=== PATIENT | male | born 1950 | race Caucasian/White ===

== ENCOUNTER 2024-12-09 09:16 | Observation (INO) | payer MEDICARE ==
--- NOTE | 2024-12-09 09:20 | ERPHSYRPT ---
- History of Present Illness Time Seen by Provider: 12/09/24 09:20 Source: patient, EMS Exam Limitations: clinical condition Physician History: This is a 74-year-old white male patient of Dr. Hannah who was brought to the emergency room by the deck officer service secondary to coughing, shortness of breath, confusion and complaints of generalized body aches and pains that began on 12/08/2024 at 1500. Patient was brought to the emergency department via paramedics who placed him on a nonrebreather. The paramedics state that the patient was hypoxic with oxygen saturation levels in the mid 80s. He has never been evaluated in our emergency department. Patient has a history of COPD, hypertension and hyperlipidemia. His spouse is in our hospital facility with shortness of breath cough and infection of influenza A. Timing/Duration: yesterday Activities at Onset: none Severity of Dyspnea-Max: moderate Severity of Dyspnea-Current: moderate Possible Cause: unknown cause Modifying Factors: Improves With: coughing, oxygen Associated Symptoms: cough Allergies/Adverse Reactions: No Known Drug Allergies Allergy (Verified 12/09/24 09:35) Home Medications: Albuterol Sulfate [Albuterol Sulfate Hfa] 8.5 gm IH Q6HPRN PRN 12/09/24 [Histo ry] Amitriptyline HCl 25 mg [Amitriptyline 25 mg Tablet] 25 mg PO 12/09/24 [History] Atorvastatin Calcium 12/09/24 [History] Fluticasone Propionate [Flonase NASAL] 12/09/24 [History] Potassium Chloride 10 meq PO DAILY 12/09/24 [History] Sotalol HCl 80 mg [Betapace 80 MG] 80 mg PO BID 12/09/24 [History] Theophylline Anhydrous [Salvador-24] 300 mg PO 12/09/24 [History] Tiotropium Br/Olodaterol HCl [Stiolto Respimat Inhaler (60)] 12/09/24 [History] lisinopriL [Zestril] 2.5 mg PO 12/09/24 [History] Travel Risk - International Travel Have you traveled outside of the country in past 3 weeks: No - Emerging Infectious Disease Are you exhibiting symptoms associated with any current EIDs: No Symptoms: Cough: New Onset, Headaches/Body Aches/, Shortness of Breath - Review of Systems Constitutional: Weakness Eyes: No Symptoms Ears, Nose, & Throat: No Symptoms Respiratory: Cough, Dyspnea, Wheezing Cardiac: No Symptoms Abdominal/Gastrointestinal: No Symptoms Genitourinary Symptoms: No Symptoms Musculoskeletal: Arthralgias, Myalgias Skin: No Symptoms Neurological: No Symptoms Psychological: No Symptoms Endocrine: No Symptoms Hematologic/Lymphatic: No Symptoms Immunological/Allergic: No Symptoms All Other Systems: Reviewed and Negative - Past Medical History Pertinent Past Medical History: Yes - Nursing Vital Signs Nursing Vital Signs: Initial Vital Signs Temperature 99.1 F 12/09/24 09:21 Pulse Rate 120 H 12/09/24 09:21 Respiratory Rate 27 H 12/09/24 09:21 Blood Pressure 126/75 12/09/24 09:21 O2 Sat by Pulse Oximetry 95 12/09/24 09:21 Pain Scale Pain Intensity 0 - Physical Exam General Appearance: mild distress, alert, anxiety Eye Exam: PERRL/EOMI, eyes nml inspection Ears, Nose, Throat Exam: normal ENT inspection, normal pharynx Neck Exam: normal inspection, non-tender, supple, full range of motion Respiratory Exam: respiratory distress, crackles/rales, wheezing, No chest tenderness Cardiovascular/Chest Exam: tachycardia Abdominal/Gastrointestinal Exam: soft, normal bowel sounds, No tenderness Rectal Exam: not done Extremity Exam: non-tender Neurologic Exam: jacker II-XII nml as tested, confusion Skin Exam: normal color, warm, dry Lymphatic Exam: No adenopathy SpO2 Interpretation: normal O2 Delivery: Non-rebreather - Course Nursing assessment & vital signs reviewed: Yes EKG Interpreted by Me: RATE (120), Sinus Tach, Left Bardolph Deviation, NORMAL INTERVALS, NORMAL QRS, Other (PVCs, no acute ischemia. QTc 446) Ordered Tests: Active Orders 24 hr Category Date Time Status Cook Vacuum Kettle STAT Care 12/09/24 09:24 Active EKG-ER Only STAT Care 12/09/24 09:23 Active IV Insertion STAT Care 12/09/24 09:23 Active Oxygen-ED Only Nasal Cannula 4 lpm Care 12/09/24 09:23 Active Pulse Oximetry (ED) STAT Care 12/09/24 09:23 Active CHEST 1 VIEW (PORTABLE) Stat Exams 12/09/24 09:24 Completed HEAD WITHOUT CONTRAST [CT] Stat Exams 12/09/24 10:08 Completed ABG [ARTERIAL BLOOD GASES] Stat Lab 12/09/24 09:30 Completed BLOOD CULTURE Stat Lab 12/09/24 09:46 Received CBC W DIFF Stat Lab 12/09/24 09:46 Completed CMP Stat Lab 12/09/24 09:46 Completed Lactic Acid Stat Lab 12/09/24 09:30 Completed MAGNESIUM Stat Lab 12/09/24 09:46 Completed NT PRO BNPII Stat Lab 12/09/24 09:46 Completed TROPONIN Q4H Lab 12/09/24 09:46 Completed TROPONIN Q4H Lab 12/09/24 12:01 Completed TROPONIN Q4H Lab 12/09/24 17:30 Ordered Respiratory Therapy Assessment DAILY RT 12/10/24 07:00 Active Medication Summary Generic Name Dose Route Start Last Admin Trade Name Freq PRN Reason Stop Dose Admin Sodium Chloride 1,000 mls @ 100 mls/hr 12/09/24 11:45 12/09/24 11:55 Sodium Chloride 0.9% 1000 Ml IV 01/08/25 11:44 100 mls/hr .Q10H EDY Administration Discontinued Medications Generic Name Dose Route Start Last Admin Trade Name Freq PRN Reason Stop Dose Admin Albuterol/Ipratropium Confirm 12/09/24 09:31 Ipratropium/Albuterol Sulfate 3 Ml Ampul.Neb Administered 12/09/24 09:32 Dose 3 ml IH .STK-MED ONE Albuterol/Ipratropium 3 ml 12/09/24 09:35 12/09/24 09:35 Ipratropium/Albuterol Sulfate 3 Ml Ampul.Neb IH 12/09/24 09:36 3 ml STAT ONE Administration Methylprednisolone Sodium 0 mg 12/09/24 10:19 12/09/24 10:27 Succinate 125 mg/ Sterile IV 12/09/24 10:20 125 mg Water 2 ml STAT ONE Administration Furosemide 40 mg 12/09/24 10:19 12/09/24 10:27 Furosemide 40 Mg/4 Ml Vial IV 12/09/24 10:20 40 mg STAT ONE Administration Furosemide Confirm 12/09/24 10:25 Furosemide 40 Mg/4 Ml Vial Administered 12/09/24 10:26 Dose 40 mg .ROUTE .STK-MED ONE Ceftriaxone Sodium 1 gm in 100 mls @ 200 mls/hr 12/09/24 10:18 12/09/24 11:04 Rocephin 1 Gm / 100 Ml Nacl IV 12/09/24 10:47 Infused STAT ONE Infusion Ceftriaxone Sodium Confirm 12/09/24 10:25 Rocephin 1 Gm / 100 Ml Nacl Administered 12/09/24 10:26 Dose 1 gm in 100 mls @ ud IV .STK-MED ONE Lorazepam 0.5 mg 12/09/24 11:49 12/09/24 11:55 Lorazepam 2 Mg/1 Ml 2 Mg Vial IV 12/09/24 11:50 0.5 mg STAT ONE Administration Lorazepam Confirm 12/09/24 11:52 Lorazepam 2 Mg/1 Ml 2 Mg Vial Administered 12/09/24 11:53 Dose 2 mg .ROUTE .STK-MED ONE Methylprednisolone Sodium Succinate Confirm 12/09/24 10:25 Methylprednis Sod Succ 125 Mg/2 Ml Vial Administered 12/09/24 10:26 Dose 125 mg .ROUTE .STK-MED ONE Sterile Water Confirm 12/09/24 10:25 Water For Injection,Sterile 10 Ml Vial Administered 12/09/24 10:26 Dose 10 ml IJ .STK-MED ONE Lab/Rad Data: Laboratory Result Diagrams 12/09/24 09:46 12/09/24 09:46 Laboratory Results 12/09/24 12/09/24 12/09/24 Range/Units 12:01 12:01 09:46 WBC (4.23-9.07) x10^3/uL RBC (4.63-6.08) x10^6/uL Hgb (13.7-17.5) g/dL Hct (40.1-51.0) % MCV (79.0-92.2) fL MCH (25.7-32.2) pg MCHC (32.3-36.5) g/dL RDW (11.6-14.4) % Plt Count (163-337) x10^3/uL MPV (9.4-12.4) fL Gran % (34.0-67.9) % Immature Gran % (Auto) (0.001-0.429) % Nucleat RBC Rel Count (0.00-0.2) % Eos # (Auto) (0.04-0.54) x10^3/uL Immature Gran # (Auto) (0.001-0.031) x10^3u/L Absolute Lymphs (auto) (1.32-3.57) x10^3/uL Absolute Monos (auto) (0.30-0.82) x10^3/uL Absolute Nucleated RBC (0.00-0.012) x10^3u/L Lymphocytes % (21.8-53.1) % Monocytes % (5.3-12.2) % Eosinophils % (0.8-7.0) % Basophils % (0.2-1.2) % Absolute Granulocytes (1.78-5.38) x10^3/uL Basophils # (0.01-0.08) x10^3/uL Puncture Site pCO2 (35-45) mmHg pO2 (75-100) mmHg Base Excess (-2.0-2.0) O2 Saturation (94-100) g/dF ABG pH (7.35-7.45) ABG HCO3 (22-28) ABG O2 Sat (Measured) (95-100) % Filiberto Test A-a Gradient a/A Ratio Hemoglobin Carboxyhemoglobin (0.0-6.9) % THgb Methemoglobin (1.4-1.5) % Potassium (3.5-5.1) Temperature C POC O2 Flow Rate % Sodium (135-145) mmol/L Chloride (98-107) mmol/L Carbon Dioxide (22-30) mmol/L Anion Gap (5-15) MEQ/L BUN (9-20) mg/dL Creatinine (0.66-1.25) mg/dL Estimated GFR ML/MIN Glucose (74-106) mg/dL Lactic Acid (0.4-2.0) Calcium (8.4-10.2) mg/dL Magnesium (1.6-2.3) mg/dL Total Bilirubin (0.2-1.3) mg/dL AST (17-59) U/L ALT (0-50) U/L Alkaline Phosphatase (38-126) U/L Ammonia < 9 L (9-30) umol/L Troponin I 0.063 H* (0.000-0.033) ng/mL NT-Pro-B Natriuret Pep (<300) pg/mL Serum Total Protein (6.3-8.2) g/dL Albumin (3.5-5.0) g/dL Influenza Type A Ag POSITIVE A (NEGATIVE) Influenza Type B Ag NEGATIVE (NEGATIVE) RSV (PCR) NEGATIVE (NEGATIVE) SARS-CoV-2 (PCR) NEGATIVE (NEGATIVE) 12/09/24 12/09/24 12/09/24 Range/Units 09:46 09:46 09:46 WBC 10.3 H (4.23-9.07) x10^3/uL RBC 3.72 L (4.63-6.08) x10^6/uL Hgb 10.6 L (13.7-17.5) g/dL Hct 34.1 L (40.1-51.0) % MCV 91.7 (79.0-92.2) fL MCH 28.5 (25.7-32.2) pg MCHC 31.1 L (32.3-36.5) g/dL RDW 13.3 (11.6-14.4) % Plt Count 354 H (163-337) x10^3/uL MPV 9.2 L (9.4-12.4) fL Gran % 78.5 H (34.0-67.9) % Immature Gran % (Auto) 0.9 H (0.001-0.429) % Nucleat RBC Rel Count 0.0 (0.00-0.2) % Eos # (Auto) 0.15 (0.04-0.54) x10^3/uL Immature Gran # (Auto) 0.09 H (0.001-0.031) x10^3u/L Absolute Lymphs (auto) 0.45 L (1.32-3.57) x10^3/uL Absolute Monos (auto) 1.47 H (0.30-0.82) x10^3/uL Absolute Nucleated RBC 0.00 (0.00-0.012) x10^3u/L Lymphocytes % 4.4 L (21.8-53.1) % Monocytes % 14.2 H (5.3-12.2) % Eosinophils % 1.5 (0.8-7.0) % Basophils % 0.5 (0.2-1.2) % Absolute Granulocytes 8.11 H (1.78-5.38) x10^3/uL Basophils # 0.05 (0.01-0.08) x10^3/uL Puncture Site pCO2 (35-45) mmHg pO2 (75-100) mmHg Base Excess (-2.0-2.0) O2 Saturation (94-100) g/dF ABG pH (7.35-7.45) ABG HCO3 (22-28) ABG O2 Sat (Measured) (95-100) % Filiberto Test A-a Gradient a/A Ratio Hemoglobin Carboxyhemoglobin (0.0-6.9) % THgb Methemoglobin (1.4-1.5) % Potassium 4.3 (3.5-5.1) Temperature C POC O2 Flow Rate % Sodium 134 L (135-145) mmol/L Chloride 89 L (98-107) mmol/L Carbon Dioxide 38 H (22-30) mmol/L Anion Gap 12.1 (5-15) MEQ/L BUN 38 H (9-20) mg/dL Creatinine 1.69 H (0.66-1.25) mg/dL Estimated GFR 42.1 ML/MIN Glucose 301 H (74-106) mg/dL Lactic Acid (0.4-2.0) Calcium 9.0 (8.4-10.2) mg/dL Magnesium 1.6 (1.6-2.3) mg/dL Total Bilirubin 0.50 (0.2-1.3) mg/dL AST 30 (17-59) U/L ALT 19 (0-50) U/L Alkaline Phosphatase 109 (38-126) U/L Ammonia (9-30) umol/L Troponin I 0.047 H* (0.000-0.033) ng/mL NT-Pro-B Natriuret Pep 1170 (<300) pg/mL Serum Total Protein 6.4 (6.3-8.2) g/dL Albumin 3.8 (3.5-5.0) g/dL Influenza Type A Ag (NEGATIVE) Influenza Type B Ag (NEGATIVE) RSV (PCR) (NEGATIVE) SARS-CoV-2 (PCR) (NEGATIVE) 12/09/24 Range/Units 09:30 WBC (4.23-9.07) x10^3/uL RBC (4.63-6.08) x10^6/uL Hgb (13.7-17.5) g/dL Hct (40.1-51.0) % MCV (79.0-92.2) fL MCH (25.7-32.2) pg MCHC (32.3-36.5) g/dL RDW (11.6-14.4) % Plt Count (163-337) x10^3/uL MPV (9.4-12.4) fL Gran % (34.0-67.9) % Immature Gran % (Auto) (0.001-0.429) % Nucleat RBC Rel Count (0.00-0.2) % Eos # (Auto) (0.04-0.54) x10^3/uL Immature Gran # (Auto) (0.001-0.031) x10^3u/L Absolute Lymphs (auto) (1.32-3.57) x10^3/uL Absolute Monos (auto) (0.30-0.82) x10^3/uL Absolute Nucleated RBC (0.00-0.012) x10^3u/L Lymphocytes % (21.8-53.1) % Monocytes % (5.3-12.2) % Eosinophils % (0.8-7.0) % Basophils % (0.2-1.2) % Absolute Granulocytes (1.78-5.38) x10^3/uL Basophils # (0.01-0.08) x10^3/uL Puncture Site RIGHT RADIAL pCO2 68 H* (35-45) mmHg pO2 101 H (75-100) mmHg Base Excess 11.7 H (-2.0-2.0) O2 Saturation 96.5 (94-100) g/dF ABG pH 7.37 (7.35-7.45) ABG HCO3 39.3 H* (22-28) ABG O2 Sat (Measured) 98.8 (95-100) % Filiberto Test Yes A-a Gradient 527 a/A Ratio 0.16 Hemoglobin 10.9 Carboxyhemoglobin 1.4 (0.0-6.9) % THgb Methemoglobin 0.9 L (1.4-1.5) % Potassium 4.2 (3.5-5.1) Temperature 37.0 C POC O2 Flow Rate 100 % Sodium (135-145) mmol/L Chloride (98-107) mmol/L Carbon Dioxide (22-30) mmol/L Anion Gap (5-15) MEQ/L BUN (9-20) mg/dL Creatinine (0.66-1.25) mg/dL Estimated GFR ML/MIN Glucose (74-106) mg/dL Lactic Acid 1.1 (0.4-2.0) Calcium (8.4-10.2) mg/dL Magnesium (1.6-2.3) mg/dL Total Bilirubin (0.2-1.3) mg/dL AST (17-59) U/L ALT (0-50) U/L Alkaline Phosphatase (38-126) U/L Ammonia (9-30) umol/L Troponin I (0.000-0.033) ng/mL NT-Pro-B Natriuret Pep (<300) pg/mL Serum Total Protein (6.3-8.2) g/dL Albumin (3.5-5.0) g/dL Influenza Type A Ag (NEGATIVE) Influenza Type B Ag (NEGATIVE) RSV (PCR) (NEGATIVE) SARS-CoV-2 (PCR) (NEGATIVE) - Progress Progress: re-examined Air Movement: fair Progress Note: 12/09/24 10:16 My medical decision making and the assignment of moderate to high complexity is based on review of the patient's past medical history, the presentation of this patient to the emergency department, review of the patient's medication list, reviewed the patient drug allergy list, history present illness and physical findings on examination. The workup in this patient includes placement of intravenous line, CBC, CMP, twelve-lead EKG, BNP, troponin level, chest x-ray, viral swabs. Differential diagnosis includes but is not limited to upper respiratory infect ion, viral illness, pneumonia, COPD exacerbation, CHF exacerbation, myocardial infarction, arrhythmias 12/09/24 10:18 The chest x-ray final report was dictated by the radiologist. It was compared to similar study dated 11/28/2021. The chest x-ray shows findings consistent with COPD. There is new mild bibasilar infiltrates/atelectasis with small bibasilar effusions. The heart is borderline enlarged. 12/09/24 11:49 I interpreted the patient's laboratory data results. Based on the laboratory data results, the patient has an elevated BNP as well as a slightly elevated troponin level. The patient has mild leukocytosis and mild anemia. He appears to have chronic renal failure. And he tested positive for influenza A infection. The CT scan of the head without contrast was interpreted by the radiologist and I reviewed the impression. The impression states nonacute senile brain 12/09/24 13:19 I interpreted the patient's repeat troponin level and it increased from 0.047- 0.061. I also interpreted the patient's repeat twelve-lead EKG which was performed on 12/09/2024 at 1259 and it shows a heart rate of 103 with a rhythm of atrial fibrillation, left anterior fascicular block and PVC. QTc is 446. There is no acute ischemia on this repeat twelve-lead EKG on my interpretation. I reviewed the workup results with the patient's daughter. The patient is confused and he cannot make decisions for himself. Patient is not but has a life partner who does not have medical power of employee benefits attorney. The next of kin is the patient's daughter. The patient's daughter wants to make this patient DNR. The patient has been DNR in the past when he was admitted to hospital for cardiac issues. We will work on finding the paperwork for signature of DNR and then contact our hospitalist for possible admission here in our facility. The patient's daughter is aware that by signing the DNR paper and making this patient DNR, that is no guarantee that he will be admitted here but he definitely will not be admitted here if he has not made DNR here for us. 12/09/24 13:47 I spoke with our telehospitalist, Dr. Zuniga and reviewed the patient history, physical findings, workup and the workup results. She accepts the patient for admission. 12/09/24 13:48 I did ask again regarding this patient's cardiac history. Patient's daughter did state that she forgot that the patient had a valve replacement in 2017. She states that he has never had a heart attack and does not have any coronary art cuate stents. She also states he has a history of atrial fibrillation. Blood Culture(s) Obtained: Yes Antibiotics given: Yes Counseled pt/family regarding: diagnosis Medical Desision Making - Independent Historian Additional History obtained from: Family - Diagnostic Testing Diagnostic test were ordered, analyzed, and reviewed by me: Yes Radiological Interpretation: Reviewed by me, Teleradiologist Report - Risk of complications The pt has a high risk of morbidity or mortality based on: Decision regarding hospitilization or escalation of hosp level of care - Departure Departure Disposition: In-patient Admission Clinical Impression: Shortness of breath, Hypoxia, Atrial fibrillation, CHF (congestive heart failure), Elevated troponin, Pleural effusion, Chronic renal failure, Influenza A H1N1 infection Condition: Fair Critical Care Time: Yes Critical Care Time(excluding separately billable procedures): Critical 30-74 mins (50) Referrals: CHIOMA HANNAH MD [Primary Care Provider] - Follow up/PCP as directed Instructions: Heart Failure
[2024-12-09] MEDS ORDERED: DUONEB 0.5-3 MG/3 ml Neb IH ONE (09:31)
[2024-12-09] MEDS: DUONEB 0.5-3 MG/3 ml Neb IH ONE (09:35)
[2024-12-09 09:37] LABS: A-aADO2 527; ABG HEMOGLOBIN 10.9; ABG POTASSIUM 4.2 (3.5-5.1); ARTERIAL BLD GAS O2 SATURATION 98.8 % (95-100); ARTERIAL BLOOD GAS BASE EXCESS 11.7 (-2.0-2.0); ARTERIAL BLOOD GAS FIO2 100 %; ARTERIAL BLOOD GAS PO2 101 mmHg (75-100); ARTERIAL BLOOD GAS pH 7.37 (7.35-7.45); CARBOXYHEMOGLOBIN 1.4 % THgb (0.0-6.9); HCO3- 39.3 (22-28); HGB O2 SAT 96.5 g/dF (94-100); Lactic Acid 1.1 (0.4-2.0); Methhemoglobin 0.9 % (1.4-1.5); paO2 pAO1 0.16
[2024-12-09 09:38] LABS: ABG SITE RIGHT RADIAL; ALLEN TEST OK? Yes; ARTERIAL BLOOD GAS PCO2 68 mmHg (35-45)
--- NOTE | 2024-12-09 09:54 | XRAY ---
Indication: Cough. Hypoxia. Comparison: November 28, 2021 Portable chest now rotated again demonstrating COPD. New mild bibasilar infiltrates/atelectasis and small effusions. Heart now borderline enlarged again with cardiac valve replacement. Bony thorax intact again with osteopenia, degenerative changes, and dextroscoliosis.
[2024-12-09 10:00] LABS: Absolute Neutrophil Ct (ANC) 8.11 x10^3/uL (1.78-5.38); BASOPHIL % 0.5 % (0.2-1.2); Basophil (Absolute #) 0.05 x10^3/uL (0.01-0.08); Eosinophil % 1.5 % (0.8-7.0); Eosinophil (Absolute #) 0.15 x10^3/uL (0.04-0.54); Hematocrit 34.1 % (40.1-51.0); Hemoglobin 10.6 g/dL (13.7-17.5); IMMATURE GRAN # 0.09 x10^3u/L (0.001-0.031); IMMATURE GRAN % 0.9 % (0.001-0.429); Lymphocyte (Absolute #) 0.45 x10^3/uL (1.32-3.57); Lymphocytes % 4.4 % (21.8-53.1); Mean Cell Volume 91.7 fL (79.0-92.2); Mean Corpuscular Hemoglobin 28.5 pg (25.7-32.2); Mean Corpuscular Hgb Concent. 31.1 g/dL (32.3-36.5); Mean Platelet Volume 9.2 fL (9.4-12.4); Monocyte (Absolute #) 1.47 x10^3/uL (0.30-0.82); Monocytes % 14.2 % (5.3-12.2); Neutrophil % 78.5 % (34.0-67.9); Platelet Count 354 x10^3/uL (163-337); Red Blood Count 3.72 x10^6/uL (4.63-6.08); Red Cell Distribution Width 13.3 % (11.6-14.4); White Blood Count 10.3 x10^3/uL (4.23-9.07)
[2024-12-09 10:22] LABS: ALBUMIN 3.8 g/dL (3.5-5.0); ANION GAP 12.1 MEQ/L (5-15); BILIRUBIN,TOTAL 0.5 mg/dL (0.2-1.3); Creatinine 1 1.69 mg/dL (0.66-1.25); EST GLOMERULAR FILTRATION RATE 42.1 ML/MIN; MAGNESIUM 1.6 mg/dL (1.6-2.3); Potassium 4.3 mmol/L (3.5-5.1); Total Protein 6.4 g/dL (6.3-8.2)
[2024-12-09] MEDS ORDERED: Sterile H2O 10 ml IJ ONE ×2 (10:25→22:02)
[2024-12-09] MEDS ORDERED: solu-MEDROL ONE ×2 (10:25→22:02)
[2024-12-09] MEDS ORDERED: ROCEPHIN 1 GM / 100 ML NaCl 1 GM/100 ML IVPB IV ONE (10:25)
[2024-12-09] MEDS ORDERED: Lasix 40 MG/4 ML ONE (10:25)
[2024-12-09] MEDS: Lasix 40 MG/4 ML IV ONE (10:27)
[2024-12-09] MEDS: solu-MEDROL 125 MG, Sterile H2O 10 ml 2 ML IV ONE (10:27)
[2024-12-09] MEDS: ROCEPHIN 1 GM / 100 ML NaCl 1 GM/100 ML IVPB IV ONE (10:27)
[2024-12-09 10:36] LABS: INFLUENZA B NEGATIVE (NEGATIVE); RESPIRATORY SYNCTIAL VIRUS NEGATIVE (NEGATIVE); SARS-CoV-2 Xpert Express NEGATIVE (NEGATIVE)
[2024-12-09 10:46] LABS: INFLUENZA A POSITIVE (NEGATIVE)
--- NOTE | 2024-12-09 11:16 | XRAY ---
Indication: Confusion. Multiple contiguous axial images obtained through the head without contrast. Comparison: None Age-appropriate global atrophy. No acute intracranial hemorrhage, abnormal extra-axial fluid collection, or mass effect. Fourth ventricle is midline without hydrocephalus. Medeiros-white matter differentiation preserved. Bony calvarium intact. Visualized paranasal sinuses and mastoid air cells are clear. Impression: Nonacute senile brain.
[2024-12-09] MEDS ORDERED: Ativan 2 MG/1 ML VIAL ONE (11:52)
[2024-12-09] MEDS: Sodium Chloride 0.9% 1000 ML 1,000 ML IV SCH (11:55)
[2024-12-09] MEDS: Ativan 2 MG/1 ML VIAL IV ONE ×2 (11:55→15:56)
[2024-12-09] MEDS ORDERED: HUMULIN R SQ PRN (15:15)
[2024-12-09] MEDS ORDERED: Zofran 4 MG/2 ML VIAL IV PRN (15:15)
[2024-12-09] MEDS ORDERED: TYLENOL 325 MG PO PRN (15:43)
[2024-12-09] MEDS: Tamiflu 75MG Capsule PO SCH (15:56)
[2024-12-09] MEDS ORDERED: MAXIPIME 1 GM IV SCH (16:00)
[2024-12-09 16:15] LABS: Slide Review 1 YES
--- NOTE | 2024-12-09 16:45 | PCM.HP ---
<HANSA SETH - Last Filed: 12/09/24 16:33> History of Present Illness - Chief Complaint Chief Complaint: Influenza, hypoxia, elevated troponin Date: 12/09/24 History of Present Illness: is a 74 year old male with a pmhx of congenital heart defect, valve replacement (2017), COPD (6L oxygen at baseline), HTN, and HLD who presented to ED via paramedics for evaluation of AMS, cough, increased shortness of breath, and generalized weakness/body aches. Daughter Lorenza is at bedside providing history for patient. She reports that patient was in his usual state of health until yesterday when she noticed he seemed a bit confused. As the night went on his confusion got worse and he was no longer coherent when speaking with her which prompted her to contact EMS services. Of note patient's significant other has been hospitalized with FluA and pneumonia -just released today. Upon arrival to ED patient was tachycardic, tachypneic and hypoxic. EKG RATE (120), Sinus Tach, Left Barling Deviation, NORMAL INTERVALS, NORMAL QRS, Other (P VCs, no acute ischemia. QTc 446). CXR demonstrating COPD. New mild bibasilar infiltrates/atelectasis and small effusions. Heart now borderline enlarged again with cardiac valve replacement. Head CT with no acute findings. Lab findings with leukocytosis, normocytic anemia, BRADEN, hyperglycemia, elevated troponins, and mild hyponatremia in the setting of hyperglycemia. Patient given lasix, rocephin, solumedrol, DuoNebs, and IVF in ED. Admit for acute respiratory failure secondary to FluA. - Review of Systems All Other Systems: Unable due to condition Medications & Allergies Home Medications: Home Medication List Albuterol Sulfate [Albuterol Sulfate Hfa] 8.5 gm IH Q6HPRN PRN 12/09/24 [History Confirmed 12/09/24] Amitriptyline HCl 25 mg [Amitriptyline 25 mg Tablet] 25 mg PO HS 12/09/24 [History Confirmed 12/09/24] Amitriptyline HCl 25 mg [Amitriptyline 25 mg Tablet] 25 mg PO HS 12/09/24 [History Confirmed 12/09/24] Atorvastatin Calcium 80 mg PO HS 12/09/24 [History Confirmed 12/09/24] Fluticasone Propionate [Flonase NASAL] 50 mcg INTRANASAL DAILY 12/09/24 [History Confirmed 12/09/24] Furosemide 40 mg [Lasix 40 MG] 40 mg PO DAILY 12/09/24 [History Confirmed 12/09/24] Potassium Chloride 10 meq PO DAILY 12/09/24 [History Confirmed 12/09/24] Sotalol HCl 80 mg [Betapace 80 MG] 80 mg PO BID 12/09/24 [History Confirmed 12/09/24] Theophylline Anhydrous [Salvador-24] 300 mg PO DAILY 12/09/24 [History Confirmed 12/09/24] Tiotropium Br/Olodaterol HCl [Stiolto Respimat Inhaler (60)] 12/09/24 [History] lisinopriL [Zestril] 2.5 mg PO DAILY 12/09/24 [History Confirmed 12/09/24] Allergies/Adverse Reactions: Allergies Allergy/AdvReac Type Severity Reaction Status Date / Time No Known Drug Allergies Allergy Verified 12/09/24 09:35 - Past Medical History Past Medical History: Yes Neurological History: No Pertinent History ENT History: No Pertinent History Cardiac History: Coronary Artery Disease, High Cholesterol, Hypertension Respiratory History: COPD Endocrine Medical History: No Pertinent History Musculoskelatal History: Arthritis GI Medical History: No Pertinent History History: No Pertinent History Pyscho-Social History: No Pertinent History Male Reproductive Disorders: No Pertinent History - Past Surgical History Past Surgical History: Yes Neuro Surgical History: No Pertinent History Cardiac History: Valve Replacement Respiratory Surgery: No Pertinent History GI Surgical History: No Pertinent History Genitourinary Surgical Hx: No Pertinent History Musculskeletal Surgical Hx: No Pertinent History Male Surgical History: No Pertinent History Other Surgical History: open heart surgery at age 7 Significant Family History: heart disease, cancer, diabetes - Social History Smoking Status: Former smoker Exposure to second hand smoke: Yes Alcohol: None Drug Use: none - Social Determinants of Health Will the patient participate in the screening: Yes Do you worry about a steady place to live?: No Do you have any problems with any of the following?: No known problems In the past 12 months,have you had to go without utilities?: No Have you or anyone in your house had to go without enough: No Transportation Issues: No Has anyone in your support network made you feel unsafe?: No Does the patient want assistance with any of the above?: No - Physical Exam Vital Signs: Vital Signs - 24 hr Temp Pulse Resp BP BP Pulse Ox 12/09/24 16:16 97.7 F 101 H 18 186/104 92 L 12/09/24 15:43 97.7 F 101 H 18 186/104 92 L 12/09/24 15:09 97.7 F 101 H 18 186/104 92 L 12/09/24 14:40 93 H 20 110/74 100 12/09/24 14:33 85 19 94 L 12/09/24 14:17 100 H 21 102/62 89 L 12/09/24 14:01 93 H 44 H 93/45 96 12/09/24 13:45 88 35 H 104/63 98 12/09/24 13:40 89 23 97 12/09/24 13:33 108 H 30 H 97 12/09/24 13:15 92 H 28 H 106/75 96 12/09/24 13:01 104 H 29 H 101/63 12/09/24 12:51 97 H 23 118/68 98 12/09/24 12:50 99 H 31 H 97 12/09/24 12:40 95 H 25 H 12/09/24 12:30 107 H 22 12/09/24 12:20 100 H 39 H 12/09/24 12:18 107 H 24 12/09/24 12:08 100 H 27 H 164/106 95 12/09/24 12:03 83 23 97 12/09/24 11:58 90 26 H 111/85 96 12/09/24 11:50 123 H 22 94 L 12/09/24 11:40 99 H 28 H 94 L 12/09/24 11:33 103 H 24 81 L 12/09/24 11:16 105 H 23 111/68 79 L 12/09/24 11:00 96/64 12/09/24 10:45 100/72 95 12/09/24 10:43 100/59 95 12/09/24 10:15 97/75 93 L 12/09/24 10:11 109 H 27 H 117/80 97 12/09/24 10:10 105 H 22 117/90 96 12/09/24 10:03 111 H 21 94 L 12/09/24 09:40 114 H 28 H 95 12/09/24 09:39 98 12/09/24 09:30 109 H 29 H 105/82 94 L 12/09/24 09:21 99.1 F 120 H 26 H 126/75 98 General Appearance: mild distress, lethargy Neurologic Exam: confusion, agitation Respiratory Exam: crackles/rales Cardiovascular Exam: tachycardia Rectal Exam: deferred Back Exam: normal inspection Extremity Exam: normal inspection Skin Exam: normal color Results - Labs Lab/Micro Results: Lab Results-Last 24 Hours 12/09/24 12/09/24 12/09/24 Range/Units 09:30 09:46 09:46 WBC 10.3 H (4.23-9.07) x10^3/uL RBC 3.72 L (4.63-6.08) x10^6/uL Hgb 10.6 L (13.7-17.5) g/dL Hct 34.1 L (40.1-51.0) % MCV 91.7 (79.0-92.2) fL MCH 28.5 (25.7-32.2) pg MCHC 31.1 L (32.3-36.5) g/dL RDW 13.3 (11.6-14.4) % Plt Count 354 H (163-337) x10^3/uL MPV 9.2 L (9.4-12.4) fL Gran % 78.5 H (34.0-67.9) % Immature Gran % (Auto) 0.9 H (0.001-0.429) % Nucleat RBC Rel Count 0.0 (0.00-0.2) % Eos # (Auto) 0.15 (0.04-0.54) x10^3/uL Immature Gran # (Auto) 0.09 H (0.001-0.031) x10^3u/L Absolute Lymphs (auto) 0.45 L (1.32-3.57) x10^3/uL Absolute Monos (auto) 1.47 H (0.30-0.82) x10^3/uL Absolute Nucleated RBC 0.00 (0.00-0.012) x10^3u/L Lymphocytes % 4.4 L (21.8-53.1) % Monocytes % 14.2 H (5.3-12.2) % Eosinophils % 1.5 (0.8-7.0) % Basophils % 0.5 (0.2-1.2) % Absolute Granulocytes 8.11 H (1.78-5.38) x10^3/uL Basophils # 0.05 (0.01-0.08) x10^3/uL Puncture Site RIGHT RADIAL pCO2 68 H* (35-45) mmHg pO2 101 H (75-100) mmHg Base Excess 11.7 H (-2.0-2.0) O2 Saturation 96.5 (94-100) g/dF ABG pH 7.37 (7.35-7.45) ABG HCO3 39.3 H* (22-28) ABG O2 Sat (Measured) 98.8 (95-100) % Filiberto Test Yes A-a Gradient 527 a/A Ratio 0.16 Hemoglobin 10.9 Carboxyhemoglobin 1.4 (0.0-6.9) % THgb Methemoglobin 0.9 L (1.4-1.5) % Potassium 4.2 4.3 (3.5-5.1) Temperature 37.0 C POC O2 Flow Rate 100 % Sodium 134 L (135-145) mmol/L Chloride 89 L (98-107) mmol/L Carbon Dioxide 38 H (22-30) mmol/L Anion Gap 12.1 (5-15) MEQ/L BUN 38 H (9-20) mg/dL Creatinine 1.69 H (0.66-1.25) mg/dL Estimated GFR 42.1 ML/MIN Glucose 301 H (74-106) mg/dL Lactic Acid 1.1 (0.4-2.0) Calcium 9.0 (8.4-10.2) mg/dL Magnesium 1.6 (1.6-2.3) mg/dL Total Bilirubin 0.50 (0.2-1.3) mg/dL AST 30 (17-59) U/L ALT 19 (0-50) U/L Alkaline Phosphatase 109 (38-126) U/L Ammonia (9-30) umol/L Troponin I (0.000-0.033) ng/mL NT-Pro-B Natriuret Pep 1170 (<300) pg/mL Serum Total Protein 6.4 (6.3-8.2) g/dL Albumin 3.8 (3.5-5.0) g/dL Influenza Type A Ag (NEGATIVE) Influenza Type B Ag (NEGATIVE) RSV (PCR) (NEGATIVE) SARS-CoV-2 (PCR) (NEGATIVE) Slides for Path Review YES 12/09/24 12/09/24 12/09/24 Range/Units 09:46 09:46 12:01 WBC (4.23-9.07) x10^3/uL RBC (4.63-6.08) x10^6/uL Hgb (13.7-17.5) g/dL Hct (40.1-51.0) % MCV (79.0-92.2) fL MCH (25.7-32.2) pg MCHC (32.3-36.5) g/dL RDW (11.6-14.4) % Plt Count (163-337) x10^3/uL MPV (9.4-12.4) fL Gran % (34.0-67.9) % Immature Gran % (Auto) (0.001-0.429) % Nucleat RBC Rel Count (0.00-0.2) % Eos # (Auto) (0.04-0.54) x10^3/uL Immature Gran # (Auto) (0.001-0.031) x10^3u/L Absolute Lymphs (auto) (1.32-3.57) x10^3/uL Absolute Monos (auto) (0.30-0.82) x10^3/uL Absolute Nucleated RBC (0.00-0.012) x10^3u/L Lymphocytes % (21.8-53.1) % Monocytes % (5.3-12.2) % Eosinophils % (0.8-7.0) % Basophils % (0.2-1.2) % Absolute Granulocytes (1.78-5.38) x10^3/uL Basophils # (0.01-0.08) x10^3/uL Puncture Site pCO2 (35-45) mmHg pO2 (75-100) mmHg Base Excess (-2.0-2.0) O2 Saturation (94-100) g/dF ABG pH (7.35-7.45) ABG HCO3 (22-28) ABG O2 Sat (Measured) (95-100) % Filiberto Test A-a Gradient a/A Ratio Hemoglobin Carboxyhemoglobin (0.0-6.9) % THgb Methemoglobin (1.4-1.5) % Potassium (3.5-5.1) Temperature C POC O2 Flow Rate % Sodium (135-145) mmol/L Chloride (98-107) mmol/L Carbon Dioxide (22-30) mmol/L Anion Gap (5-15) MEQ/L BUN (9-20) mg/dL Creatinine (0.66-1.25) mg/dL Estimated GFR ML/MIN Glucose (74-106) mg/dL Lactic Acid (0.4-2.0) Calcium (8.4-10.2) mg/dL Magnesium (1.6-2.3) mg/dL Total Bilirubin (0.2-1.3) mg/dL AST (17-59) U/L ALT (0-50) U/L Alkaline Phosphatase (38-126) U/L Ammonia (9-30) umol/L Troponin I 0.047 H* 0.063 H* (0.000-0.033) ng/mL NT-Pro-B Natriuret Pep (<300) pg/mL Serum Total Protein (6.3-8.2) g/dL Albumin (3.5-5.0) g/dL Influenza Type A Ag POSITIVE A (NEGATIVE) Influenza Type B Ag NEGATIVE (NEGATIVE) RSV (PCR) NEGATIVE (NEGATIVE) SARS-CoV-2 (PCR) NEGATIVE (NEGATIVE) Slides for Path Review 12/09/24 Range/Units 12:01 WBC (4.23-9.07) x10^3/uL RBC (4.63-6.08) x10^6/uL Hgb (13.7-17.5) g/dL Hct (40.1-51.0) % MCV (79.0-92.2) fL MCH (25.7-32.2) pg MCHC (32.3-36.5) g/dL RDW (11.6-14.4) % Plt Count (163-337) x10^3/uL MPV (9.4-12.4) fL Gran % (34.0-67.9) % Immature Gran % (Auto) (0.001-0.429) % Nucleat RBC Rel Count (0.00-0.2) % Eos # (Auto) (0.04-0.54) x10^3/uL Immature Gran # (Auto) (0.001-0.031) x10^3u/L Absolute Lymphs (auto) (1.32-3.57) x10^3/uL Absolute Monos (auto) (0.30-0.82) x10^3/uL Absolute Nucleated RBC (0.00-0.012) x10^3u/L Lymphocytes % (21.8-53.1) % Monocytes % (5.3-12.2) % Eosinophils % (0.8-7.0) % Basophils % (0.2-1.2) % Absolute Granulocytes (1.78-5.38) x10^3/uL Basophils # (0.01-0.08) x10^3/uL Puncture Site pCO2 (35-45) mmHg pO2 (75-100) mmHg Base Excess (-2.0-2.0) O2 Saturation (94-100) g/dF ABG pH (7.35-7.45) ABG HCO3 (22-28) ABG O2 Sat (Measured) (95-100) % Filiberto Test A-a Gradient a/A Ratio Hemoglobin Carboxyhemoglobin (0.0-6.9) % THgb Methemoglobin (1.4-1.5) % Potassium (3.5-5.1) Temperature C POC O2 Flow Rate % Sodium (135-145) mmol/L Chloride (98-107) mmol/L Carbon Dioxide (22-30) mmol/L Anion Gap (5-15) MEQ/L BUN (9-20) mg/dL Creatinine (0.66-1.25) mg/dL Estimated GFR ML/MIN Glucose (74-106) mg/dL Lactic Acid (0.4-2.0) Calcium (8.4-10.2) mg/dL Magnesium (1.6-2.3) mg/dL Total Bilirubin (0.2-1.3) mg/dL AST (17-59) U/L ALT (0-50) U/L Alkaline Phosphatase (38-126) U/L Ammonia < 9 L (9-30) umol/L Troponin I (0.000-0.033) ng/mL NT-Pro-B Natriuret Pep (<300) pg/mL Serum Total Protein (6.3-8.2) g/dL Albumin (3.5-5.0) g/dL Influenza Type A Ag (NEGATIVE) Influenza Type B Ag (NEGATIVE) RSV (PCR) (NEGATIVE) SARS-CoV-2 (PCR) (NEGATIVE) Slides for Path Review - Radiology Impressions Radiology Exams & Impressions: Radiology Procedures Category Date Time Status CHEST 1 VIEW (PORTABLE) Stat Exams 12/09/24 09:24 Completed HEAD WITHOUT CONTRAST [CT] Stat Exams 12/09/24 10:08 Completed - Other Procedures and Tests Respiratory Therapy 12/09/24 15:15 EKG REPEAT IN AM Oxygen Oxymask LPM 2 lpm Respiratory Therapy Consult ONCE 12/09/24 16:31 RT Screen per Nursing Assess ONCE 12/10/24 07:00 Respiratory Therapy Assessment DAILY Assessment/Plan (1) Acute respiratory failure with hypoxia Current Visit: Yes Status: Acute Assessment & Plan: -CXR demonstrating COPD. New mild bibasilar infiltrates/atelectasis and small effusions. Heart now borderline enlarged again with cardiac valve replacement -Supplemental oxygen to with goal spo2 > 90% -DuoNebs/INH -RT eval and follow -Tamiflu for FluA - renal dosing -Cefepime for possible concomitant bacterial infection Code(s): J96.01 - ACUTE RESPIRATORY FAILURE WITH HYPOXIA (2) Influenza A H1N1 infection Current Visit: Yes Status: Acute Assessment & Plan: -see ARF Code(s): J10.1 - FLU DUE TO OTH IDENT INFLUENZA VIRUS W OTH RESP MANIFEST (3) COPD (chronic obstructive pulmonary disease) Current Visit: Yes Status: Acute Assessment & Plan: -see ARF (4) HTN (hypertension) Current Visit: Yes Status: Acute Assessment & Plan: -Hypertensive on arrival - monitor BP closely - resume home meds Code(s): I10 - ESSENTIAL (PRIMARY) HYPERTENSION (5) HLD (hyperlipidemia) Current Visit: Yes Status: Acute Code(s): E78.5 - HYPERLIPIDEMIA, UNSPECIFIED (6) Hyponatremia Current Visit: Yes Status: Acute Assessment & Plan: -Mild - sodium reviewed at 134 - in the setting of hyperglycemia should correct with improved blood glucose levels Code(s): E87.1 - HYPO-OSMOLALITY AND HYPONATREMIA (7) Leukocytosis Current Visit: Yes Status: Acute Assessment & Plan: -CXR as stated above -UA to r/o infection -Blood cultures pending -Cefepime/Tamiflu Code(s): D72.829 - ELEVATED WHITE BLOOD CELL COUNT, UNSPECIFIED (8) Atrial fibrillation Current Visit: Yes Status: Acute Assessment & Plan: -Tele -Will reach out to PCP for current med list -EKG RATE (120), Sinus Tach, Left Barling Deviation, NORMAL INTERVALS, NORMAL QRS, Other (PVCs, no acute ischemia. QTc 446). -Repeat EKG in the morning -HR now controlled at 93 Code(s): I48.91 - UNSPECIFIED ATRIAL FIBRILLATION (9) Elevated troponin Current Visit: Yes Status: Acute Assessment & Plan: -Reviewed and downtrending 0.054<0.063>0.047 -Tele -EKG as stated above - repeat in the a.m. -BNP 1170 -Echo Code(s): R79.89 - OTHER SPECIFIED ABNORMAL FINDINGS OF BLOOD CHEMISTRY (10) BRADEN (acute kidney injury) Current Visit: Yes Status: Acute Assessment & Plan: -Monitor renal/lytes daily -avoid nephrotoxic agents -IVF given in ED -resume at 50ml/hr -No baseline creat available - reviewed currently at 1.69 Code(s): N17.9 - ACUTE KIDNEY FAILURE, UNSPECIFIED (11) AMS (altered mental status) Current Visit: Yes Status: Acute Assessment & Plan: -Most likely secondary to infection -CT Head negative for acute findings -Ammonia level reviewed -Add TSH, B12/fol, procal -Swallow eval -nursing prior to diet -minimize narcotics -sedating medications -orientation protocols -Lactic acid reviewed and WNL -Supplemental oxygen with goal spo2 > 90% -ABG if significant hypoxia/lethary/confusion Code(s): R41.82 - ALTERED MENTAL STATUS, UNSPECIFIED (12) Hyperglycemia Current Visit: Yes Status: Acute Assessment & Plan: -No h/o DM -Check A1c -SSI low dose -ADA diet - after swallow eval with nursing -accuchecks achs VTE: SCD - until official med list obtained to find out if patient is anticoagulated PPI:Protonix Dispo: 1-2 days Code(s): R73.9 - HYPERGLYCEMIA, UNSPECIFIED Telemedicine Encounter - Telemedicine Encounter Telemedicine Encounter: "The entirety of this encounter was performed via Telemedicine" This visit was performed using real-time audio and video connection between my location and thepatients locationwith the assistance of a surrogateat the patients location. Written or verbal consent was obtained from the patient/guardian to perform this visit [facility] technology. Any patient questions regarding the telemedicine interaction were answered. <NIKIA GOLDBERG - Last Filed: 12/09/24 21:36> History of Present Illness - Chief Complaint History of Present Illness: is a 74 year old male. - Physical Exam Vital Signs: Vital Signs - 24 hr Temp Pulse Resp BP BP Pulse Ox 12/09/24 19:11 88 18 99 12/09/24 16:16 97.7 F 92 H 18 98 12/09/24 15:45 114/71 12/09/24 15:43 97.7 F 101 H 18 186/104 92 L 12/09/24 15:15 88 26 H 94 L 12/09/24 15:09 97.7 F 101 H 18 186/104 92 L 12/09/24 14:40 93 H 20 110/74 100 12/09/24 14:33 85 19 94 L 12/09/24 14:17 100 H 21 102/62 89 L 12/09/24 14:01 93 H 44 H 93/45 96 12/09/24 13:45 88 35 H 104/63 98 12/09/24 13:40 89 23 97 12/09/24 13:33 108 H 30 H 97 12/09/24 13:15 92 H 28 H 106/75 96 12/09/24 13:01 104 H 29 H 101/63 12/09/24 12:51 97 H 23 118/68 98 12/09/24 12:50 99 H 31 H 97 12/09/24 12:40 95 H 25 H 12/09/24 12:30 107 H 22 12/09/24 12:20 100 H 39 H 12/09/24 12:18 107 H 24 12/09/24 12:08 100 H 27 H 164/106 95 12/09/24 12:03 83 23 97 12/09/24 11:58 90 26 H 111/85 96 12/09/24 11:50 123 H 22 94 L 12/09/24 11:40 99 H 28 H 94 L 12/09/24 11:33 103 H 24 81 L 12/09/24 11:16 105 H 23 111/68 79 L 12/09/24 11:00 96/64 12/09/24 10:45 100/72 95 12/09/24 10:43 100/59 95 12/09/24 10:15 97/75 93 L 12/09/24 10:11 109 H 27 H 117/80 97 12/09/24 10:10 105 H 22 117/90 96 12/09/24 10:03 111 H 21 94 L 12/09/24 09:40 114 H 28 H 95 12/09/24 09:39 98 12/09/24 09:30 109 H 29 H 105/82 94 L 12/09/24 09:21 99.1 F 120 H 26 H 126/75 98 Results - Labs Lab/Micro Results: Lab Results-Last 24 Hours 12/09/24 12/09/24 12/09/24 Range/Units 09:30 09:46 09:46 WBC 10.3 H (4.23-9.07) x10^3/uL RBC 3.72 L (4.63-6.08) x10^6/uL Hgb 10.6 L (13.7-17.5) g/dL Hct 34.1 L (40.1-51.0) % MCV 91.7 (79.0-92.2) fL MCH 28.5 (25.7-32.2) pg MCHC 31.1 L (32.3-36.5) g/dL RDW 13.3 (11.6-14.4) % Plt Count 354 H (163-337) x10^3/uL MPV 9.2 L (9.4-12.4) fL Gran % 78.5 H (34.0-67.9) % Immature Gran % (Auto) 0.9 H (0.001-0.429) % Nucleat RBC Rel Count 0.0 (0.00-0.2) % Eos # (Auto) 0.15 (0.04-0.54) x10^3/uL Immature Gran # (Auto) 0.09 H (0.001-0.031) x10^3u/L Absolute Lymphs (auto) 0.45 L (1.32-3.57) x10^3/uL Absolute Monos (auto) 1.47 H (0.30-0.82) x10^3/uL Absolute Nucleated RBC 0.00 (0.00-0.012) x10^3u/L Lymphocytes % 4.4 L (21.8-53.1) % Monocytes % 14.2 H (5.3-12.2) % Eosinophils % 1.5 (0.8-7.0) % Basophils % 0.5 (0.2-1.2) % Absolute Granulocytes 8.11 H (1.78-5.38) x10^3/uL Basophils # 0.05 (0.01-0.08) x10^3/uL Puncture Site RIGHT RADIAL pCO2 68 H* (35-45) mmHg pO2 101 H (75-100) mmHg pO2/FiO2 Ratio % Base Excess 11.7 H (-2.0-2.0) O2 Saturation 96.5 (94-100) g/dF ABG pH 7.37 (7.35-7.45) ABG HCO3 39.3 H* (22-28) ABG O2 Sat (Measured) 98.8 (95-100) % Filiberto Test Yes VBG pH (7.32-7.42) VBG pCO2 at Pat Temp (42-55) mm/Hg VBG pO2 at Pat Temp (25-40) mm/Hg VBG HCO3 (22-28) meq/L VBG O2 Sat (Imani) (95-100) VBG Base Excess (-2.0-2.0) VBG Hemoglobin VBG Carboxyhemoglobin (0.0-6.9) % T HGB A-a Gradient 527 a/A Ratio 0.16 Hemoglobin 10.9 Carboxyhemoglobin 1.4 (0.0-6.9) % THgb Methemoglobin 0.9 L (1.4-1.5) % Potassium 4.2 4.3 (3.5-5.1) POC Potassium (3.5-5.1) Temperature 37.0 C POC O2 Flow Rate 100 % Sodium 134 L (135-145) mmol/L Chloride 89 L (98-107) mmol/L Carbon Dioxide 38 H (22-30) mmol/L Anion Gap 12.1 (5-15) MEQ/L BUN 38 H (9-20) mg/dL Creatinine 1.69 H (0.66-1.25) mg/dL Estimated GFR 42.1 ML/MIN Glucose 301 H (74-106) mg/dL Hemoglobin A1c (4.5-6.0) % Lactic Acid 1.1 (0.4-2.0) Calcium 9.0 (8.4-10.2) mg/dL Magnesium 1.6 (1.6-2.3) mg/dL Iron (49-181) ug/dL TIBC (261-497) ug/dL Iron Saturation (20-39) % Ferritin (17.9-464) ng/mL Total Bilirubin 0.50 (0.2-1.3) mg/dL AST 30 (17-59) U/L ALT 19 (0-50) U/L Alkaline Phosphatase 109 (38-126) U/L Ammonia (9-30) umol/L Troponin I (0.000-0.033) ng/mL NT-Pro-B Natriuret Pep 1170 (<300) pg/mL Serum Total Protein 6.4 (6.3-8.2) g/dL Albumin 3.8 (3.5-5.0) g/dL Vitamin B12 (239-931) pg/mL Folic Acid (2.76 - >20) ng/mL Procalcitonin (0.030-0.080) ng/mL TSH 3rd Generation (0.470-4.680) mIU/L Influenza Type A Ag (NEGATIVE) Influenza Type B Ag (NEGATIVE) RSV (PCR) (NEGATIVE) SARS-CoV-2 (PCR) (NEGATIVE) Slides for Path Review YES 12/09/24 12/09/24 12/09/24 Range/Units 09:46 09:46 12:01 WBC (4.23-9.07) x10^3/uL RBC (4.63-6.08) x10^6/uL Hgb (13.7-17.5) g/dL Hct (40.1-51.0) % MCV (79.0-92.2) fL MCH (25.7-32.2) pg MCHC (32.3-36.5) g/dL RDW (11.6-14.4) % Plt Count (163-337) x10^3/uL MPV (9.4-12.4) fL Gran % (34.0-67.9) % Immature Gran % (Auto) (0.001-0.429) % Nucleat RBC Rel Count (0.00-0.2) % Eos # (Auto) (0.04-0.54) x10^3/uL Immature Gran # (Auto) (0.001-0.031) x10^3u/L Absolute Lymphs (auto) (1.32-3.57) x10^3/uL Absolute Monos (auto) (0.30-0.82) x10^3/uL Absolute Nucleated RBC (0.00-0.012) x10^3u/L Lymphocytes % (21.8-53.1) % Monocytes % (5.3-12.2) % Eosinophils % (0.8-7.0) % Basophils % (0.2-1.2) % Absolute Granulocytes (1.78-5.38) x10^3/uL Basophils # (0.01-0.08) x10^3/uL Puncture Site pCO2 (35-45) mmHg pO2 (75-100) mmHg pO2/FiO2 Ratio % Base Excess (-2.0-2.0) O2 Saturation (94-100) g/dF ABG pH (7.35-7.45) ABG HCO3 (22-28) ABG O2 Sat (Measured) (95-100) % Filiberto Test VBG pH (7.32-7.42) VBG pCO2 at Pat Temp (42-55) mm/Hg VBG pO2 at Pat Temp (25-40) mm/Hg VBG HCO3 (22-28) meq/L VBG O2 Sat (Imani) (95-100) VBG Base Excess (-2.0-2.0) VBG Hemoglobin VBG Carboxyhemoglobin (0.0-6.9) % T HGB A-a Gradient a/A Ratio Hemoglobin Carboxyhemoglobin (0.0-6.9) % THgb Methemoglobin (1.4-1.5) % Potassium (3.5-5.1) POC Potassium (3.5-5.1) Temperature C POC O2 Flow Rate % Sodium (135-145) mmol/L Chloride (98-107) mmol/L Carbon Dioxide (22-30) mmol/L Anion Gap (5-15) MEQ/L BUN (9-20) mg/dL Creatinine (0.66-1.25) mg/dL Estimated GFR ML/MIN Glucose (74-106) mg/dL Hemoglobin A1c (4.5-6.0) % Lactic Acid (0.4-2.0) Calcium (8.4-10.2) mg/dL Magnesium (1.6-2.3) mg/dL Iron (49-181) ug/dL TIBC (261-497) ug/dL Iron Saturation (20-39) % Ferritin (17.9-464) ng/mL Total Bilirubin (0.2-1.3) mg/dL AST (17-59) U/L ALT (0-50) U/L Alkaline Phosphatase (38-126) U/L Ammonia (9-30) umol/L Troponin I 0.047 H* 0.063 H* (0.000-0.033) ng/mL NT-Pro-B Natriuret Pep (<300) pg/mL Serum Total Protein (6.3-8.2) g/dL Albumin (3.5-5.0) g/dL Vitamin B12 (239-931) pg/mL Folic Acid (2.76 - >20) ng/mL Procalcitonin (0.030-0.080) ng/mL TSH 3rd Generation (0.470-4.680) mIU/L Influenza Type A Ag POSITIVE A (NEGATIVE) Influenza Type B Ag NEGATIVE (NEGATIVE) RSV (PCR) NEGATIVE (NEGATIVE) SARS-CoV-2 (PCR) NEGATIVE (NEGATIVE) Slides for Path Review 12/09/24 12/09/24 12/09/24 Range/Units 12:01 16:20 17:24 WBC (4.23-9.07) x10^3/uL RBC (4.63-6.08) x10^6/uL Hgb (13.7-17.5) g/dL Hct (40.1-51.0) % MCV (79.0-92.2) fL MCH (25.7-32.2) pg MCHC (32.3-36.5) g/dL RDW (11.6-14.4) % Plt Count (163-337) x10^3/uL MPV (9.4-12.4) fL Gran % (34.0-67.9) % Immature Gran % (Auto) (0.001-0.429) % Nucleat RBC Rel Count (0.00-0.2) % Eos # (Auto) (0.04-0.54) x10^3/uL Immature Gran # (Auto) (0.001-0.031) x10^3u/L Absolute Lymphs (auto) (1.32-3.57) x10^3/uL Absolute Monos (auto) (0.30-0.82) x10^3/uL Absolute Nucleated RBC (0.00-0.012) x10^3u/L Lymphocytes % (21.8-53.1) % Monocytes % (5.3-12.2) % Eosinophils % (0.8-7.0) % Basophils % (0.2-1.2) % Absolute Granulocytes (1.78-5.38) x10^3/uL Basophils # (0.01-0.08) x10^3/uL Puncture Site pCO2 (35-45) mmHg pO2 (75-100) mmHg pO2/FiO2 Ratio % Base Excess (-2.0-2.0) O2 Saturation (94-100) g/dF ABG pH (7.35-7.45) ABG HCO3 (22-28) ABG O2 Sat (Measured) (95-100) % Filiberto Test VBG pH (7.32-7.42) VBG pCO2 at Pat Temp (42-55) mm/Hg VBG pO2 at Pat Temp (25-40) mm/Hg VBG HCO3 (22-28) meq/L VBG O2 Sat (Imani) (95-100) VBG Base Excess (-2.0-2.0) VBG Hemoglobin VBG Carboxyhemoglobin (0.0-6.9) % T HGB A-a Gradient a/A Ratio Hemoglobin Carboxyhemoglobin (0.0-6.9) % THgb Methemoglobin (1.4-1.5) % Potassium (3.5-5.1) POC Potassium (3.5-5.1) Temperature C POC O2 Flow Rate % Sodium (135-145) mmol/L Chloride (98-107) mmol/L Carbon Dioxide (22-30) mmol/L Anion Gap (5-15) MEQ/L BUN (9-20) mg/dL Creatinine (0.66-1.25) mg/dL Estimated GFR ML/MIN Glucose (74-106) mg/dL Hemoglobin A1c (4.5-6.0) % Lactic Acid (0.4-2.0) Calcium (8.4-10.2) mg/dL Magnesium (1.6-2.3) mg/dL Iron (49-181) ug/dL TIBC (261-497) ug/dL Iron Saturation (20-39) % Ferritin 19.3 (17.9-464) ng/mL Total Bilirubin (0.2-1.3) mg/dL AST (17-59) U/L ALT (0-50) U/L Alkaline Phosphatase (38-126) U/L Ammonia < 9 L (9-30) umol/L Troponin I Cancelled (0.000-0.033) ng/mL NT-Pro-B Natriuret Pep (<300) pg/mL Serum Total Protein (6.3-8.2) g/dL Albumin (3.5-5.0) g/dL Vitamin B12 853 (239-931) pg/mL Folic Acid > 20.0 (2.76 - >20) ng/mL Procalcitonin (0.030-0.080) ng/mL TSH 3rd Generation (0.470-4.680) mIU/L Influenza Type A Ag (NEGATIVE) Influenza Type B Ag (NEGATIVE) RSV (PCR) (NEGATIVE) SARS-CoV-2 (PCR) (NEGATIVE) Slides for Path Review 12/09/24 12/09/24 12/09/24 Range/Units 17:24 17:39 17:39 WBC (4.23-9.07) x10^3/uL RBC (4.63-6.08) x10^6/uL Hgb (13.7-17.5) g/dL Hct (40.1-51.0) % MCV (79.0-92.2) fL MCH (25.7-32.2) pg MCHC (32.3-36.5) g/dL RDW (11.6-14.4) % Plt Count (163-337) x10^3/uL MPV (9.4-12.4) fL Gran % (34.0-67.9) % Immature Gran % (Auto) (0.001-0.429) % Nucleat RBC Rel Count (0.00-0.2) % Eos # (Auto) (0.04-0.54) x10^3/uL Immature Gran # (Auto) (0.001-0.031) x10^3u/L Absolute Lymphs (auto) (1.32-3.57) x10^3/uL Absolute Monos (auto) (0.30-0.82) x10^3/uL Absolute Nucleated RBC (0.00-0.012) x10^3u/L Lymphocytes % (21.8-53.1) % Monocytes % (5.3-12.2) % Eosinophils % (0.8-7.0) % Basophils % (0.2-1.2) % Absolute Granulocytes (1.78-5.38) x10^3/uL Basophils # (0.01-0.08) x10^3/uL Puncture Site pCO2 (35-45) mmHg pO2 (75-100) mmHg pO2/FiO2 Ratio % Base Excess (-2.0-2.0) O2 Saturation (94-100) g/dF ABG pH (7.35-7.45) ABG HCO3 (22-28) ABG O2 Sat (Measured) (95-100) % Filiberto Test VBG pH (7.32-7.42) VBG pCO2 at Pat Temp (42-55) mm/Hg VBG pO2 at Pat Temp (25-40) mm/Hg VBG HCO3 (22-28) meq/L VBG O2 Sat (Imani) (95-100) VBG Base Excess (-2.0-2.0) VBG Hemoglobin VBG Carboxyhemoglobin (0.0-6.9) % T HGB A-a Gradient a/A Ratio Hemoglobin Carboxyhemoglobin (0.0-6.9) % THgb Methemoglobin (1.4-1.5) % Potassium (3.5-5.1) POC Potassium (3.5-5.1) Temperature C POC O2 Flow Rate % Sodium (135-145) mmol/L Chloride (98-107) mmol/L Carbon Dioxide (22-30) mmol/L Anion Gap (5-15) MEQ/L BUN (9-20) mg/dL Creatinine (0.66-1.25) mg/dL Estimated GFR ML/MIN Glucose (74-106) mg/dL Hemoglobin A1c 11.87 H (4.5-6.0) % Lactic Acid (0.4-2.0) Calcium (8.4-10.2) mg/dL Magnesium (1.6-2.3) mg/dL Iron 37 L (49-181) ug/dL TIBC 381 (261-497) ug/dL Iron Saturation 10 L (20-39) % Ferritin (17.9-464) ng/mL Total Bilirubin (0.2-1.3) mg/dL AST (17-59) U/L ALT (0-50) U/L Alkaline Phosphatase (38-126) U/L Ammonia (9-30) umol/L Troponin I (0.000-0.033) ng/mL NT-Pro-B Natriuret Pep (<300) pg/mL Serum Total Protein (6.3-8.2) g/dL Albumin (3.5-5.0) g/dL Vitamin B12 (239-931) pg/mL Folic Acid (2.76 - >20) ng/mL Procalcitonin (0.030-0.080) ng/mL TSH 3rd Generation 0.067 L (0.470-4.680) mIU/L Influenza Type A Ag (NEGATIVE) Influenza Type B Ag (NEGATIVE) RSV (PCR) (NEGATIVE) SARS-CoV-2 (PCR) (NEGATIVE) Slides for Path Review 12/09/24 12/09/24 Range/Units 17:39 19:30 WBC (4.23-9.07) x10^3/uL RBC (4.63-6.08) x10^6/uL Hgb (13.7-17.5) g/dL Hct (40.1-51.0) % MCV (79.0-92.2) fL MCH (25.7-32.2) pg MCHC (32.3-36.5) g/dL RDW (11.6-14.4) % Plt Count (163-337) x10^3/uL MPV (9.4-12.4) fL Gran % (34.0-67.9) % Immature Gran % (Auto) (0.001-0.429) % Nucleat RBC Rel Count (0.00-0.2) % Eos # (Auto) (0.04-0.54) x10^3/uL Immature Gran # (Auto) (0.001-0.031) x10^3u/L Absolute Lymphs (auto) (1.32-3.57) x10^3/uL Absolute Monos (auto) (0.30-0.82) x10^3/uL Absolute Nucleated RBC (0.00-0.012) x10^3u/L Lymphocytes % (21.8-53.1) % Monocytes % (5.3-12.2) % Eosinophils % (0.8-7.0) % Basophils % (0.2-1.2) % Absolute Granulocytes (1.78-5.38) x10^3/uL Basophils # (0.01-0.08) x10^3/uL Puncture Site pCO2 (35-45) mmHg pO2 (75-100) mmHg pO2/FiO2 Ratio 80.0 % Base Excess (-2.0-2.0) O2 Saturation (94-100) g/dF ABG pH (7.35-7.45) ABG HCO3 (22-28) ABG O2 Sat (Measured) (95-100) % Fiilberto Test VBG pH 7.35 (7.32-7.42) VBG pCO2 at Pat Temp 74 H* (42-55) mm/Hg VBG pO2 at Pat Temp 25 (25-40) mm/Hg VBG HCO3 40.9 H* (22-28) meq/L VBG O2 Sat (Imani) 29.3 L (95-100) VBG Base Excess 12.9 H (-2.0-2.0) VBG Hemoglobin 10.1 VBG Carboxyhemoglobin 0.3 (0.0-6.9) % T HGB A-a Gradient a/A Ratio Hemoglobin Carboxyhemoglobin (0.0-6.9) % THgb Methemoglobin (1.4-1.5) % Potassium (3.5-5.1) POC Potassium 4.5 (3.5-5.1) Temperature C POC O2 Flow Rate % Sodium (135-145) mmol/L Chloride (98-107) mmol/L Carbon Dioxide (22-30) mmol/L Anion Gap (5-15) MEQ/L BUN (9-20) mg/dL Creatinine (0.66-1.25) mg/dL Estimated GFR ML/MIN Glucose (74-106) mg/dL Hemoglobin A1c (4.5-6.0) % Lactic Acid (0.4-2.0) Calcium (8.4-10.2) mg/dL Magnesium (1.6-2.3) mg/dL Iron (49-181) ug/dL TIBC (261-497) ug/dL Iron Saturation (20-39) % Ferritin (17.9-464) ng/mL Total Bilirubin (0.2-1.3) mg/dL AST (17-59) U/L ALT (0-50) U/L Alkaline Phosphatase (38-126) U/L Ammonia (9-30) umol/L Troponin I (0.000-0.033) ng/mL NT-Pro-B Natriuret Pep (<300) pg/mL Serum Total Protein (6.3-8.2) g/dL Albumin (3.5-5.0) g/dL Vitamin B12 (239-931) pg/mL Folic Acid (2.76 - >20) ng/mL Procalcitonin 0.192 H (0.030-0.080) ng/mL TSH 3rd Generation (0.470-4.680) mIU/L Influenza Type A Ag (NEGATIVE) Influenza Type B Ag (NEGATIVE) RSV (PCR) (NEGATIVE) SARS-CoV-2 (PCR) (NEGATIVE) Slides for Path Review - Radiology Impressions Radiology Exams & Impressions: Radiology Procedures Category Date Time Status CHEST 1 VIEW (PORTABLE) Stat Exams 12/09/24 09:24 Completed ECHO W/2D AND DOPPLER [US] Routine Exams 12/09/24 17:09 Ordered HEAD WITHOUT CONTRAST [CT] Stat Exams 12/09/24 10:08 Completed - Other Procedures and Tests Respiratory Therapy 12/09/24 15:15 EKG REPEAT IN AM Oxygen Oxymask LPM 10 lpm 12/10/24 07:00 Respiratory Therapy Assessment DAILY Telemedicine Encounter - Telemedicine Encounter Telemedicine Encounter: "The entirety of this encounter was performed via Telemedicine" This visit was performed using real-time audio and video connection between my location and thepatients locationwith the assistance of a surrogateat the patients location. Written or verbal consent was obtained from the patient/guardian to perform this visit usingRealCrowd technology. Any patient questions regarding the telemedicine interaction were answered. THOMAS Encounter - THOMAS Encounter Attestation THOMAS Encounter Attestation: "IhzacharylysCOOPER Shi andhavediscussed pertinent aspects of their care with Hansa Seth and agree with the history, physical exam (any modifications based on my personal exam will be noted below), assessment, and plan as outlined in original note. Please see immediately below for my summary of findings and additional assessment and plan along with any meaningful corrections/explanations to the Subjective/Objective portions of the THOMAS note will be noted." My portion of the encounter took place via telemedicine. -Patient presenting with encephalopathy and acute on chronic hypoxic respiratory failure due to influenza A. Will treat with oxygen support, possible bipap if needed, Tamiflu, steroids, nebs and antibiotics given h/o COPD and mild WBC elevation. Mild troponin leak likely related to Afib with RVR. Patient was very agitated and had to be given Ativan 0.5 mg IV x 2 (once in the ER, once on the floor). However will avoid further doses unless absolutely needed due to risk for resp depression and withdrawal. Patient is full code for now.
[2024-12-09] MEDS ORDERED: Xopenex 1.25 MG/0.5 ML UD NEBULE IH PRN (17:31)
[2024-12-09 18:45] LABS: Iron 37 ug/dL (49-181); Iron Saturation 10 % (20-39); TIBC 381 ug/dL (261-497)
[2024-12-09 19:45] LABS: VBG BASE EXCESS 12.9 (-2.0-2.0); VBG CARBOXYHEMOGLOBIN 0.3 % T HGB (0.0-6.9); VBG HCO3- 40.9 meq/L (22-28); VBG HEMOGLOBIN 10.1; VBG O2 SATURATION 29.3 (95-100); VBG POTASSIUM 4.5 (3.5-5.1); VBG pH 7.35 (7.32-7.42)
[2024-12-09 19:48] LABS: Ferritin 19.3 ng/mL (17.9-464); Folate (Folic Acid) > 20.0 ng/mL (2.76 - >20); Vitamin B12 853 pg/mL (239-931)
[2024-12-09] MEDS: solu-MEDROL 40 MG, Sterile H2O 10 ml 1 ML IV SCH (22:03)
[2024-12-09] MEDS: Maxipime 2 GM** 2 G in Dextrose 5%/Water IV Soln. 100ML PLUS BAG 100 ML IV SCH (22:03)
[2024-12-10] MEDS: HUMALOG SQ PRN ×2 (00:13→16:35)
[2024-12-10] MEDS ORDERED: DUONEB 0.5-3 MG/3 ml Neb IH ONE (01:38)
[2024-12-10 01:53] LABS: Appearance Clear (Clear); Bacteria None Seen /HPF (None Seen); Bilirubin Negative (Negative); Blood Negative (Negative); Epithelial Cells Rare /HPF (None Seen); Glucose, Urine >=1000 mg/dL (Negative); Hyaline Casts NONE SEEN /LPF (0-2); Ketones Negative (Negative); Leukocyte Esterase Negative (Negative); Nitrite Negative (Negative); Ph 5.5 (4.6-8.0); Protein,Urine Dip 30 (Negative); RBC 0-2 /HPF (0-5); Specific Gravity 1.025 (1.005-1.030); Urobilinogen 0.2 mg/dL (0.2); WBC 0-2 /HPF (0-5)
[2024-12-10] MEDS: NORCO 5/325 MG PO PRN (01:54)
[2024-12-10] MEDS: DUONEB 0.5-3 MG/3 ml Neb IH ONE (01:57)
[2024-12-10] MEDS: Sodium Chloride 0.9% 1000 ML 1,000 ML IV SCH (04:13)
[2024-12-10 05:14] LABS: Absolute Neutrophil Ct (ANC) 9.51 x10^3/uL (1.78-5.38); BASOPHIL % 0.1 % (0.2-1.2); Basophil (Absolute #) 0.01 x10^3/uL (0.01-0.08); Eosinophil % 0.1 % (0.8-7.0); Eosinophil (Absolute #) 0.01 x10^3/uL (0.04-0.54); Hematocrit 30.6 % (40.1-51.0); Hemoglobin 9.3 g/dL (13.7-17.5); IMMATURE GRAN # 0.05 x10^3u/L (0.001-0.031); IMMATURE GRAN % 0.5 % (0.001-0.429); Lymphocyte (Absolute #) 0.38 x10^3/uL (1.32-3.57); Lymphocytes % 3.7 % (21.8-53.1); Mean Corpuscular Hemoglobin 28.3 pg (25.7-32.2); Mean Corpuscular Hgb Concent. 30.4 g/dL (32.3-36.5); Mean Platelet Volume 8.9 fL (9.4-12.4); Monocyte (Absolute #) 0.43 x10^3/uL (0.30-0.82); Monocytes % 4.1 % (5.3-12.2); Neutrophil % 91.5 % (34.0-67.9); Platelet Count 321 x10^3/uL (163-337); Red Blood Count 3.29 x10^6/uL (4.63-6.08); Red Cell Distribution Width 13.5 % (11.6-14.4); White Blood Count 10.4 x10^3/uL (4.23-9.07)
[2024-12-10 05:38] LABS: ALBUMIN 3.7 g/dL (3.5-5.0); ANION GAP 10.7 MEQ/L (5-15); BILIRUBIN,TOTAL 0.4 mg/dL (0.2-1.3); Calcium 8.2 mg/dL (8.4-10.2); Creatinine 1 1.27 mg/dL (0.66-1.25); EST GLOMERULAR FILTRATION RATE 59.3 ML/MIN; PREALBUMIN 11.36 mg/dL (17.6-36.0); Potassium 4.1 mmol/L (3.5-5.1); Total Protein 6.3 g/dL (6.3-8.2)
[2024-12-10] MEDS ORDERED: Sterile H2O 10 ml IJ ONE (05:56)
[2024-12-10] MEDS ORDERED: CEFAZOLIN 2 GM/100 ML NaCl 2 GM/100 ML IVPB IV ONE (05:56)
[2024-12-10] MEDS ORDERED: solu-MEDROL ONE (05:56)
[2024-12-10] MEDS: PULMICORT 0.5 MG/2 ML RESPULES IH SCH (07:45)
[2024-12-10] MEDS: Maxipime 2 GM** 2 G in Dextrose 5%/Water IV Soln. 100ML PLUS BAG 100 ML IV SCH (08:22)
[2024-12-10] MEDS: OSELTAMIVIR PHOSPHATE 30 MG CAP PO SCH (08:22)
[2024-12-10 08:39] LABS: Slide Review 1 YES
--- NOTE | 2024-12-10 09:50 | PCM.CONS ---
History of Present Illness - Date of Consult Consulting Brass Polisher: ESTEFANIA STERETER MD Requesting Provider: Attending Provider: NIKIA GOLDBERG MD Primary Care Provider: PCP: CHIOMA HANNAH - Consult Narrative Reason for Consult: elevated trops HPI: 74 yo M w/ PMHx of COPD (6L baseline), HTN, HL, s/p valve (2017, family/patient unsure which valve), CHD who presents with worsening SOB, AMS, falls, muscle aches and diagnosed with influenza. Please refer to his initial HPI for details on this patient's presentation. In the ER, the patient was found to be tachycardic, tachypneic and hypoxic. CXR shows COPD with new mild bibasilar infiltrates/atelectasis and small effusions Cardiology is consulted regarding minimally elevated trops. EKG (12/10/24) reviewed and shows NSR with PAC, LAD, and possible old anteroseptal infarct (poor R-wave progression). Patient denies any active or recent chest pain to me but does report worsening of his baseline SOB. cc:: The requesting physician will be sent a copy of the consult. Review of Systems - Review of Systems All systems: as per HPI - Past Medical History Past Medical History: Yes Neurological History: No Pertinent History ENT History: No Pertinent History Cardiac History: Coronary Artery Disease, High Cholesterol, Hypertension Respiratory History: COPD Endocrine Medical History: No Pertinent History Musculoskelatal History: Arthritis GI Medical History: No Pertinent History History: No Pertinent History Pyscho-Social History: No Pertinent History Male Reproductive Disorders: No Pertinent History - Past Surgical History Past Surgical History: Yes Neuro Surgical History: No Pertinent History Cardiac History: Valve Replacement Respiratory Surgery: No Pertinent History GI Surgical History: No Pertinent History Genitourinary Surgical Hx: No Pertinent History Musculskeletal Surgical Hx: No Pertinent History Male Surgical History: No Pertinent History Other Surgical History: open heart surgery at age 7 Significant Family History: heart disease, cancer, diabetes - Social History Smoking Status: Former smoker Exposure to second hand smoke: Yes Alcohol: None Drug Use: none - Social Determinants of Health Will the patient participate in the screening: Yes Do you worry about a steady place to live?: No Do you have any problems with any of the following?: No known problems In the past 12 months,have you had to go without utilities?: No Have you or anyone in your house had to go without enough: No Transportation Issues: No Has anyone in your support network made you feel unsafe?: No Does the patient want assistance with any of the above?: No Medications & Allergies Home Medications: Home Medication List Albuterol Sulfate [Albuterol Sulfate Hfa] 8.5 gm IH Q6HPRN PRN 12/09/24 [History Confirmed 12/09/24] Amitriptyline HCl 25 mg [Amitriptyline 25 mg Tablet] 25 mg PO HS 12/09/24 [History Confirmed 12/09/24] Amitriptyline HCl 25 mg [Amitriptyline 25 mg Tablet] 25 mg PO HS 12/09/24 [History Confirmed 12/09/24] Atorvastatin Calcium 80 mg PO HS 12/09/24 [History Confirmed 12/09/24] Fluticasone Propionate [Flonase NASAL] 50 mcg INTRANASAL DAILY 12/09/24 [History Confirmed 12/09/24] Furosemide 40 mg [Lasix 40 MG] 40 mg PO DAILY 12/09/24 [History Confirmed 12/09/24] Potassium Chloride 10 meq PO DAILY 12/09/24 [History Confirmed 12/09/24] Sotalol HCl 80 mg [Betapace 80 MG] 80 mg PO BID 12/09/24 [History Confirmed 12/09/24] Theophylline Anhydrous [Salvador-24] 300 mg PO DAILY 12/09/24 [History Confirmed 12/09/24] Tiotropium Br/Olodaterol HCl [Stiolto Respimat Inhaler (60)] 12/09/24 [History] lisinopriL [Zestril] 2.5 mg PO DAILY 12/09/24 [History Confirmed 12/09/24] Allergies/Adverse Reactions: Allergies Allergy/AdvReac Type Severity Reaction Status Date / Time No Known Drug Allergies Allergy Verified 12/09/24 09:35 Exam - Vitals Vital Signs: Vital Signs - 24 hr Temp Pulse Resp BP BP Pulse Ox 12/10/24 08:00 92 H 18 98 12/10/24 07:22 100 12/10/24 07:10 92 H 24 96 12/10/24 02:12 103 H 28 H 97 12/09/24 23:00 97.1 F 73 18 115/60 92 L 12/09/24 19:43 97.8 F 73 20 109/55 90 L 12/09/24 19:11 88 18 99 12/09/24 16:16 97.7 F 92 H 18 98 12/09/24 15:45 114/71 12/09/24 15:43 97.7 F 101 H 18 186/104 92 L 12/09/24 15:15 88 26 H 94 L 12/09/24 15:09 97.7 F 101 H 18 186/104 92 L 12/09/24 14:40 93 H 20 110/74 100 12/09/24 14:33 85 19 94 L 12/09/24 14:17 100 H 21 102/62 89 L 12/09/24 14:01 93 H 44 H 93/45 96 12/09/24 13:45 88 35 H 104/63 98 12/09/24 13:40 89 23 97 12/09/24 13:33 108 H 30 H 97 12/09/24 13:15 92 H 28 H 106/75 96 12/09/24 13:01 104 H 29 H 101/63 12/09/24 12:51 97 H 23 118/68 98 12/09/24 12:50 99 H 31 H 97 12/09/24 12:40 95 H 25 H 12/09/24 12:30 107 H 22 12/09/24 12:20 100 H 39 H 12/09/24 12:18 107 H 24 12/09/24 12:08 100 H 27 H 164/106 95 12/09/24 12:03 83 23 97 12/09/24 11:58 90 26 H 111/85 96 12/09/24 11:50 123 H 22 94 L 12/09/24 11:40 99 H 28 H 94 L 12/09/24 11:33 103 H 24 81 L 12/09/24 11:16 105 H 23 111/68 79 L 12/09/24 11:00 96/64 12/09/24 10:45 100/72 95 12/09/24 10:43 100/59 95 12/09/24 10:15 97/75 93 L 12/09/24 10:11 109 H 27 H 117/80 97 12/09/24 10:10 105 H 22 117/90 96 12/09/24 10:03 111 H 21 94 L General:: mild distress HEENT: EOMI Cardiovascular Exam: regular rate/rhythm Respiratory Exam: rhonchi SpO2: 98 Gastrointestinal/Abdomen Exam: soft, other (obese) Extremity Exam: other (no edema) Neurologic: 5/5 Motor and Sensory Upper and Lower Extremities, other (agitated) Results Vital Signs: Vital Signs - 24 hr Temp Pulse Resp BP BP Pulse Ox 12/10/24 08:00 92 H 18 98 12/10/24 07:22 100 12/10/24 07:10 92 H 24 96 12/10/24 02:12 103 H 28 H 97 12/09/24 23:00 97.1 F 73 18 115/60 92 L 12/09/24 19:43 97.8 F 73 20 109/55 90 L 12/09/24 19:11 88 18 99 12/09/24 16:16 97.7 F 92 H 18 98 12/09/24 15:45 114/71 12/09/24 15:43 97.7 F 101 H 18 186/104 92 L 12/09/24 15:15 88 26 H 94 L 12/09/24 15:09 97.7 F 101 H 18 186/104 92 L 12/09/24 14:40 93 H 20 110/74 100 12/09/24 14:33 85 19 94 L 12/09/24 14:17 100 H 21 102/62 89 L 12/09/24 14:01 93 H 44 H 93/45 96 12/09/24 13:45 88 35 H 104/63 98 12/09/24 13:40 89 23 97 12/09/24 13:33 108 H 30 H 97 12/09/24 13:15 92 H 28 H 106/75 96 12/09/24 13:01 104 H 29 H 101/63 12/09/24 12:51 97 H 23 118/68 98 12/09/24 12:50 99 H 31 H 97 12/09/24 12:40 95 H 25 H 12/09/24 12:30 107 H 22 12/09/24 12:20 100 H 39 H 12/09/24 12:18 107 H 24 12/09/24 12:08 100 H 27 H 164/106 95 12/09/24 12:03 83 23 97 02/19/25 11:58 90 26 H 111/85 96 12/09/24 11:50 123 H 22 94 L 12/09/24 11:40 99 H 28 H 94 L 12/09/24 11:33 103 H 24 81 L 12/09/24 11:16 105 H 23 111/68 79 L 12/09/24 11:00 96/64 12/09/24 10:45 100/72 95 12/09/24 10:43 100/59 95 12/09/24 10:15 97/75 93 L 12/09/24 10:11 109 H 27 H 117/80 97 12/09/24 10:10 105 H 22 117/90 96 12/09/24 10:03 111 H 21 94 L Pain Assessment - Last Documented Pain Intensity 0 Pain Scale Used FLACC Intake and Output: Intake & Output 12/07/24 12/08/24 12/09/24 12/10/24 11:59 11:59 11:59 11:59 Intake Total 100 Output Total 450 Balance -350 Weight 84.6 kg 81.5 kg LAB: I have reviewed the Labs in [facility]. Radiology Exams: Radiology Procedures Category Date Time Status CHEST 1 VIEW (PORTABLE) Stat Exams 12/09/24 09:24 Completed ECHO W/2D AND DOPPLER [US] Routine Exams 12/10/24 17:09 Ordered HEAD WITHOUT CONTRAST [CT] Stat Exams 12/09/24 10:08 Completed Multi-Disciplinary Progress Notes: Multi-Disciplinary Progress Notes 12/10/24 08:05 Respiratory Note by Kami Javed RT ADMINISTERED PULMICORT ORDERED, PT HR 91, SPO2 92%, PRIOR. DURING TREATMENT, HR GOT UP TO 128, SPO2 WAS 72%. TX STOPPED, PLACED PT ON 6LPM VIA NC WITH BUBBLER, HR DROPPED TO 98 AND SPO2 98%. RN NOTIFIED. DAY PORTER NOTIFIED. Initialized on 12/10/24 08:05 - END OF NOTE 12/09/24 19:15 Respiratory Note by Gerardo Means PT WAS 99% ON 10L VIA OXYMASK. PT WAS IN NO DISTRESS AND RESTING COMFORTABLY SO DECREASED O2 TO 8L. WILL CONTINUE TO MONITOR. Initialized on 12/09/24 19:15 - END OF NOTE 12/09/24 16:04 Pharmacy Note by Alfonso Shearer Maxipime changed to 2gm iv q12h per renal dosing policy. Estimated crcl is 45ml/min. Initialized on 12/09/24 16:04 - END OF NOTE 12/09/24 15:46 Pharmacy Note by Alfonso Shearer Tamiflu dose adjusted per renal dosing policy. Give 75mg for first dose, then 30mg bid. Initialized on 12/09/24 15:46 - END OF NOTE Assessment & Plan (1) Elevated troponin Current Visit: Yes Status: Acute Assessment & Plan: Trops are minimally elevated and not in a pattern c/w ACS. Likely stress response to underlying infection. No further inpatient cardiac eval needed at this time. No indication for echo based on these minimal trop elevations. Code(s): R79.89 - OTHER SPECIFIED ABNORMAL FINDINGS OF BLOOD CHEMISTRY (2) Atrial fibrillation Current Visit: Yes Status: Acute Assessment & Plan: Patient is currently in NSR; would hold sotalol until Cr resolves to baseline. Unclear why he is not on an anticoagulant. Would defer to patient's outpatient packing checker. Code(s): I48.91 - UNSPECIFIED ATRIAL FIBRILLATION - Encounter Encounter: "The entirety of this encounter was performed via Telemedicine using audio and visual "
[2024-12-10] MEDS: TYLENOL 325 MG PO PRN (10:13)
--- NOTE | 2024-12-10 11:42 | PCM.NOTE ---
Date and Time: 12/10/24 1129 Subjective Assessment: Mr. Pardo is a 74-year-old male with a medical history significant for a congenital heart defect, valve replacement in 2017, COPD (requiring 6L oxygen at baseline), hypertension, and hyperlipidemia. He presented to the ED via paramedics with altered mental status (AMS), cough, increased shortness of zenaida ath, and generalized weakness and body aches. His daughter, Lorenza, provided the history on admission, reporting that he was in his usual state of health until yesterday ( 12/08) when she noticed his confusion worsening, eventually becoming incoherent, which prompted her to contact EMS. Additionally, his significant other had been hospitalized with FluA and pneumonia and was just released today. Upon arrival to the ED, Mr. Pardo was tachycardic, tachypneic, and hypoxic. EKG showed a heart rate of 120, sinus tachycardia, left axis deviation, and normal intervals and QRS, with PVCs but no acute ischemia. His chest X-ray revealed findings consistent with COPD, mild bibasilar infiltrates/atelectasis, and small effusions. The heart was borderline enlarged due to his cardiac valve replacement. Head CT showed no acute findings. Lab results were notable for leukocytosis, normocytic anemia, acute kidney injury (BRADEN), hyperglycemia, elevated troponins, and mild hyponatremia in the setting of hyperglycemia. The patient was treated with Lasix, Rocephin, Solumedrol, DuoNebs, and IV fluids in the ED. He was admitted for acute respiratory failure secondary to Flu A. Today, Mr. Pardo is awake and alert, with improved cognition, and he complains of body aches from the flu, which have been managed with Tylenol. He is on his baseline oxygen of 6L nasal cannula. His daughter reports that he is back to his baseline cognitively. She is seeking home physical therapy and home health care for him. The case management team will discuss the discharge plan. Additionally, Mr. Pardo was newly diagnosed with diabetes, with an A1c of 11.87, and a nutrition consult was requested. Nursing staff will provide teaching on Lantus and Humalog sliding scale. The plan is for him to be discharged tomorrow, contingent on continued improvement. Continue tamiflu, cefepime, steriods, and xoponex. - Review of Systems Constitutional: Fatigue, Malaise, Weakness, No Fever, No Chills Eyes: No Symptoms Ears, Nose, & Throat: No Symptoms Respiratory: No Cough, No Short Of Breath Cardiac: No Chest Pain, No Edema, No Syncope Abdominal/Gastrointestinal: No Abdominal Pain, No Nausea, No Vomiting, No Diarrhea Genitourinary Symptoms: No Dysuria Musculoskeletal: No Back Pain, No Neck Pain Skin: No Rash Neurological: No Dizziness, No Focal Weakness, No Sensory Changes Psychological: No Symptoms Endocrine: No Symptoms Hematologic/Lymphatic: No Symptoms Immunological/Allergic: No Symptoms Objective Exam General Appearance: no apparent distress, alert Neurologic Exam: alert, oriented x 3, cooperative, normal mood/affect, nml cerebellar function, sensation nml, No motor deficits Skin Exam: normal color, warm, dry Eye Exam: PERRL, EOMI, eyes nml inspection Ears, Nose, Throat Exam: normal ENT inspection, pharynx normal, moist mucous membranes Neck Exam: normal inspection, non-tender, supple, full range of motion Respiratory Exam: normal breath sounds, lungs clear, No respiratory distress Cardiovascular Exam: regular rate/rhythm, normal heart sounds Gastrointestinal/Abdomen Exam: soft, No tenderness, No mass Extremity Exam: normal inspection, normal range of motion Back Exam: normal inspection, normal range of motion, No CVA tenderness, No vertebral tenderness Male Genitalia Exam: deferred Rectal Exam: deferred Objective Data Vital Signs: Vital Signs - 24 hr Temp Pulse Resp BP BP Pulse Ox 12/10/24 10:27 98 12/10/24 08:00 98.0 F 80 22 103/55 96 12/10/24 07:22 100 12/10/24 07:10 92 H 24 96 12/10/24 02:12 103 H 28 H 97 12/09/24 23:00 97.1 F 73 18 115/60 92 L 12/09/24 19:43 97.8 F 73 20 109/55 90 L 12/09/24 19:11 88 18 99 12/09/24 16:16 97.7 F 92 H 18 98 12/09/24 15:45 114/71 12/09/24 15:43 97.7 F 101 H 18 186/104 92 L 12/09/24 15:15 88 26 H 94 L 12/09/24 15:09 97.7 F 101 H 18 186/104 92 L 12/09/24 14:40 93 H 20 110/74 100 12/09/24 14:33 85 19 94 L 12/09/24 14:17 100 H 21 102/62 89 L 12/09/24 14:01 93 H 44 H 93/45 96 12/09/24 13:45 88 35 H 104/63 98 12/09/24 13:40 89 23 97 12/09/24 13:33 108 H 30 H 97 12/09/24 13:15 92 H 28 H 106/75 96 12/09/24 13:01 104 H 29 H 101/63 12/09/24 12:51 97 H 23 118/68 98 12/09/24 12:50 99 H 31 H 97 12/09/24 12:40 95 H 25 H 12/09/24 12:30 107 H 22 12/09/24 12:20 100 H 39 H 12/09/24 12:18 107 H 24 12/09/24 12:08 100 H 27 H 164/106 95 12/09/24 12:03 83 23 97 12/09/24 11:58 90 26 H 111/85 96 12/09/24 11:50 123 H 22 94 L 12/09/24 11:40 99 H 28 H 94 L 12/09/24 11:33 103 H 24 81 L Pain Assessment - Last Documented Pain Intensity 0 Pain Scale Used FLACC Intake and Output: Intake & Output 12/07/24 12/08/24 12/09/24 12/10/24 11:59 11:59 11:59 11:59 Intake Total 340 Output Total 450 Balance -110 Weight 84.6 kg 81.5 kg Lab Results: Lab Results-Last 24 Hours 12/09/24 12/09/24 12/09/24 Range/Units 01:44 09:46 12:01 WBC (4.23-9.07) x10^3/uL RBC (4.63-6.08) x10^6/uL Hgb (13.7-17.5) g/dL Hct (40.1-51.0) % MCV (79.0-92.2) fL MCH (25.7-32.2) pg MCHC (32.3-36.5) g/dL RDW (11.6-14.4) % Plt Count (163-337) x10^3/uL MPV (9.4-12.4) fL Gran % (34.0-67.9) % Immature Gran % (Auto) (0.001-0.429) % Nucleat RBC Rel Count (0.00-0.2) % Eos # (Auto) (0.04-0.54) x10^3/uL Immature Gran # (Auto) (0.001-0.031) x10^3u/L Absolute Lymphs (auto) (1.32-3.57) x10^3/uL Absolute Monos (auto) (0.30-0.82) x10^3/uL Absolute Nucleated RBC (0.00-0.012) x10^3u/L Lymphocytes % (21.8-53.1) % Monocytes % (5.3-12.2) % Eosinophils % (0.8-7.0) % Basophils % (0.2-1.2) % Absolute Granulocytes (1.78-5.38) x10^3/uL Basophils # (0.01-0.08) x10^3/uL pO2/FiO2 Ratio % VBG pH (7.32-7.42) VBG pCO2 at Pat Temp (42-55) mm/Hg VBG pO2 at Pat Temp (25-40) mm/Hg VBG HCO3 (22-28) meq/L VBG O2 Sat (Imani) (95-100) VBG Base Excess (-2.0-2.0) VBG Hemoglobin VBG Carboxyhemoglobin (0.0-6.9) % T HGB POC Potassium (3.5-5.1) Sodium (135-145) mmol/L Potassium (3.5-5.1) mmol/L Chloride (98-107) mmol/L Carbon Dioxide (22-30) mmol/L Anion Gap (5-15) MEQ/L BUN (9-20) mg/dL Creatinine (0.66-1.25) mg/dL Estimated GFR ML/MIN Glucose (74-106) mg/dL POC Glucometer (74 to 106) mg/dL Hemoglobin A1c (4.5-6.0) % Calcium (8.4-10.2) mg/dL Iron (49-181) ug/dL TIBC (261-497) ug/dL Iron Saturation (20-39) % Ferritin (17.9-464) ng/mL Total Bilirubin (0.2-1.3) mg/dL AST (17-59) U/L ALT (0-50) U/L Alkaline Phosphatase (38-126) U/L Ammonia (9-30) umol/L Troponin I 0.063 H* (0.000-0.033) ng/mL NT-Pro-B Natriuret Pep (<300) pg/mL Serum Total Protein (6.3-8.2) g/dL Albumin (3.5-5.0) g/dL Prealbumin (17.6-36.0) mg/dL Vitamin B12 (239-931) pg/mL Folic Acid (2.76 - >20) ng/mL Procalcitonin (0.030-0.080) ng/mL TSH 3rd Generation (0.470-4.680) mIU/L Urine Color Yellow (Yellow) Urine Appearance Clear (Clear) Urine pH 5.5 (4.6-8.0) Ur Specific [place] 1.025 (1.005-1.030) Urine Protein 30 (Negative) Urine Glucose (UA) >=1000 A (Negative) mg/dL Urine Ketones Negative (Negative) Urine Blood Negative (Negative) Urine Nitrite Negative (Negative) Urine Bilirubin Negative (Negative) Urine Urobilinogen 0.2 (0.2) mg/dL Ur Leukocyte Esterase Negative (Negative) U Hyaline Cast (Auto) NONE SEEN (0-2) /LPF Urine Microscopic RBC 0-2 (0-5) /HPF Urine Microscopic WBC 0-2 (0-5) /HPF Ur Epithelial Cells Rare (None Seen) /HPF Urine Bacteria None Seen (None Seen) /HPF Urine Culture Reflexed NO (NO) Slides for Path Review YES 12/09/24 12/09/24 12/09/24 Range/Units 12:01 16:20 17:24 WBC (4.23-9.07) x10^3/uL RBC (4.63-6.08) x10^6/uL Hgb (13.7-17.5) g/dL Hct (40.1-51.0) % MCV (79.0-92.2) fL MCH (25.7-32.2) pg MCHC (32.3-36.5) g/dL RDW (11.6-14.4) % Plt Count (163-337) x10^3/uL MPV (9.4-12.4) fL Gran % (34.0-67.9) % Immature Gran % (Auto) (0.001-0.429) % Nucleat RBC Rel Count (0.00-0.2) % Eos # (Auto) (0.04-0.54) x10^3/uL Immature Gran # (Auto) (0.001-0.031) x10^3u/L Absolute Lymphs (auto) (1.32-3.57) x10^3/uL Absolute Monos (auto) (0.30-0.82) x10^3/uL Absolute Nucleated RBC (0.00-0.012) x10^3u/L Lymphocytes % (21.8-53.1) % Monocytes % (5.3-12.2) % Eosinophils % (0.8-7.0) % Basophils % (0.2-1.2) % Absolute Granulocytes (1.78-5.38) x10^3/uL Basophils # (0.01-0.08) x10^3/uL pO2/FiO2 Ratio % VBG pH (7.32-7.42) VBG pCO2 at Pat Temp (42-55) mm/Hg VBG pO2 at Pat Temp (25-40) mm/Hg VBG HCO3 (22-28) meq/L VBG O2 Sat (Imani) (95-100) VBG Base Excess (-2.0-2.0) VBG Hemoglobin VBG Carboxyhemoglobin (0.0-6.9) % T HGB POC Potassium (3.5-5.1) Sodium (135-145) mmol/L Potassium (3.5-5.1) mmol/L Chloride (98-107) mmol/L Carbon Dioxide (22-30) mmol/L Anion Gap (5-15) MEQ/L BUN (9-20) mg/dL Creatinine (0.66-1.25) mg/dL Estimated GFR ML/MIN Glucose (74-106) mg/dL POC Glucometer (74 to 106) mg/dL Hemoglobin A1c (4.5-6.0) % Calcium (8.4-10.2) mg/dL Iron (49-181) ug/dL TIBC (261-497) ug/dL Iron Saturation (20-39) % Ferritin 19.3 (17.9-464) ng/mL Total Bilirubin (0.2-1.3) mg/dL AST (17-59) U/L ALT (0-50) U/L Alkaline Phosphatase (38-126) U/L Ammonia < 9 L (9-30) umol/L Troponin I Cancelled (0.000-0.033) ng/mL NT-Pro-B Natriuret Pep (<300) pg/mL Serum Total Protein (6.3-8.2) g/dL Albumin (3.5-5.0) g/dL Prealbumin (17.6-36.0) mg/dL Vitamin B12 853 (239-931) pg/mL Folic Acid > 20.0 (2.76 - >20) ng/mL Procalcitonin (0.030-0.080) ng/mL TSH 3rd Generation (0.470-4.680) mIU/L Urine Color (Yellow) Urine Appearance (Clear) Urine pH (4.6-8.0) Ur Specific [place] (1.005-1.030) Urine Protein (Negative) Urine Glucose (UA) (Negative) mg/dL Urine Ketones (Negative) Urine Blood (Negative) Urine Nitrite (Negative) Urine Bilirubin (Negative) Urine Urobilinogen (0.2) mg/dL Ur Leukocyte Esterase (Negative) U Hyaline Cast (Auto) (0-2) /LPF Urine Microscopic RBC (0-5) /HPF Urine Microscopic WBC (0-5) /HPF Ur Epithelial Cells (None Seen) /HPF Urine Bacteria (None Seen) /HPF Urine Culture Reflexed (NO) Slides for Path Review 12/09/24 12/09/24 12/09/24 Range/Units 17:24 17:39 17:39 WBC (4.23-9.07) x10^3/uL RBC (4.63-6.08) x10^6/uL Hgb (13.7-17.5) g/dL Hct (40.1-51.0) % MCV (79.0-92.2) fL MCH (25.7-32.2) pg MCHC (32.3-36.5) g/dL RDW (11.6-14.4) % Plt Count (163-337) x10^3/uL MPV (9.4-12.4) fL Gran % (34.0-67.9) % Immature Gran % (Auto) (0.001-0.429) % Nucleat RBC Rel Count (0.00-0.2) % Eos # (Auto) (0.04-0.54) x10^3/uL Immature Gran # (Auto) (0.001-0.031) x10^3u/L Absolute Lymphs (auto) (1.32-3.57) x10^3/uL Absolute Monos (auto) (0.30-0.82) x10^3/uL Absolute Nucleated RBC (0.00-0.012) x10^3u/L Lymphocytes % (21.8-53.1) % Monocytes % (5.3-12.2) % Eosinophils % (0.8-7.0) % Basophils % (0.2-1.2) % Absolute Granulocytes (1.78-5.38) x10^3/uL Basophils # (0.01-0.08) x10^3/uL pO2/FiO2 Ratio % VBG pH (7.32-7.42) VBG pCO2 at Pat Temp (42-55) mm/Hg VBG pO2 at Pat Temp (25-40) mm/Hg VBG HCO3 (22-28) meq/L VBG O2 Sat (Imani) (95-100) VBG Base Excess (-2.0-2.0) VBG Hemoglobin VBG Carboxyhemoglobin (0.0-6.9) % T HGB POC Potassium (3.5-5.1) Sodium (135-145) mmol/L Potassium (3.5-5.1) mmol/L Chloride (98-107) mmol/L Carbon Dioxide (22-30) mmol/L Anion Gap (5-15) MEQ/L BUN (9-20) mg/dL Creatinine (0.66-1.25) mg/dL Estimated GFR ML/MIN Glucose (74-106) mg/dL POC Glucometer (74 to 106) mg/dL Hemoglobin A1c 11.87 H (4.5-6.0) % Calcium (8.4-10.2) mg/dL Iron 37 L (49-181) ug/dL TIBC 381 (261-497) ug/dL Iron Saturation 10 L (20-39) % Ferritin (17.9-464) ng/mL Total Bilirubin (0.2-1.3) mg/dL AST (17-59) U/L ALT (0-50) U/L Alkaline Phosphatase (38-126) U/L Ammonia (9-30) umol/L Troponin I (0.000-0.033) ng/mL NT-Pro-B Natriuret Pep (<300) pg/mL Serum Total Protein (6.3-8.2) g/dL Albumin (3.5-5.0) g/dL Prealbumin (17.6-36.0) mg/dL Vitamin B12 (239-931) pg/mL Folic Acid (2.76 - >20) ng/mL Procalcitonin (0.030-0.080) ng/mL TSH 3rd Generation 0.067 L (0.470-4.680) mIU/L Urine Color (Yellow) Urine Appearance (Clear) Urine pH (4.6-8.0) Ur Specific [place] (1.005-1.030) Urine Protein (Negative) Urine Glucose (UA) (Negative) mg/dL Urine Ketones (Negative) Urine Blood (Negative) Urine Nitrite (Negative) Urine Bilirubin (Negative) Urine Urobilinogen (0.2) mg/dL Ur Leukocyte Esterase (Negative) U Hyaline Cast (Auto) (0-2) /LPF Urine Microscopic RBC (0-5) /HPF Urine Microscopic WBC (0-5) /HPF Ur Epithelial Cells (None Seen) /HPF Urine Bacteria (None Seen) /HPF Urine Culture Reflexed (NO) Slides for Path Review 12/09/24 12/09/24 12/10/24 Range/Units 17:39 19:30 00:10 WBC (4.23-9.07) x10^3/uL RBC (4.63-6.08) x10^6/uL Hgb (13.7-17.5) g/dL Hct (40.1-51.0) % MCV (79.0-92.2) fL MCH (25.7-32.2) pg MCHC (32.3-36.5) g/dL RDW (11.6-14.4) % Plt Count (163-337) x10^3/uL MPV (9.4-12.4) fL Gran % (34.0-67.9) % Immature Gran % (Auto) (0.001-0.429) % Nucleat RBC Rel Count (0.00-0.2) % Eos # (Auto) (0.04-0.54) x10^3/uL Immature Gran # (Auto) (0.001-0.031) x10^3u/L Absolute Lymphs (auto) (1.32-3.57) x10^3/uL Absolute Monos (auto) (0.30-0.82) x10^3/uL Absolute Nucleated RBC (0.00-0.012) x10^3u/L Lymphocytes % (21.8-53.1) % Monocytes % (5.3-12.2) % Eosinophils % (0.8-7.0) % Basophils % (0.2-1.2) % Absolute Granulocytes (1.78-5.38) x10^3/uL Basophils # (0.01-0.08) x10^3/uL pO2/FiO2 Ratio 80.0 % VBG pH 7.35 (7.32-7.42) VBG pCO2 at Pat Temp 74 H* (42-55) mm/Hg VBG pO2 at Pat Temp 25 (25-40) mm/Hg VBG HCO3 40.9 H* (22-28) meq/L VBG O2 Sat (Imani) 29.3 L (95-100) VBG Base Excess 12.9 H (-2.0-2.0) VBG Hemoglobin 10.1 VBG Carboxyhemoglobin 0.3 (0.0-6.9) % T HGB POC Potassium 4.5 (3.5-5.1) Sodium (135-145) mmol/L Potassium (3.5-5.1) mmol/L Chloride (98-107) mmol/L Carbon Dioxide (22-30) mmol/L Anion Gap (5-15) MEQ/L BUN (9-20) mg/dL Creatinine (0.66-1.25) mg/dL Estimated GFR ML/MIN Glucose (74-106) mg/dL POC Glucometer 289 H (74 to 106) mg/dL Hemoglobin A1c (4.5-6.0) % Calcium (8.4-10.2) mg/dL Iron (49-181) ug/dL TIBC (261-497) ug/dL Iron Saturation (20-39) % Ferritin (17.9-464) ng/mL Total Bilirubin (0.2-1.3) mg/dL AST (17-59) U/L ALT (0-50) U/L Alkaline Phosphatase (38-126) U/L Ammonia (9-30) umol/L Troponin I (0.000-0.033) ng/mL NT-Pro-B Natriuret Pep (<300) pg/mL Serum Total Protein (6.3-8.2) g/dL Albumin (3.5-5.0) g/dL Prealbumin (17.6-36.0) mg/dL Vitamin B12 (239-931) pg/mL Folic Acid (2.76 - >20) ng/mL Procalcitonin 0.192 H (0.030-0.080) ng/mL TSH 3rd Generation (0.470-4.680) mIU/L Urine Color (Yellow) Urine Appearance (Clear) Urine pH (4.6-8.0) Ur Specific [place] (1.005-1.030) Urine Protein (Negative) Urine Glucose (UA) (Negative) mg/dL Urine Ketones (Negative) Urine Blood (Negative) Urine Nitrite (Negative) Urine Bilirubin (Negative) Urine Urobilinogen (0.2) mg/dL Ur Leukocyte Esterase (Negative) U Hyaline Cast (Auto) (0-2) /LPF Urine Microscopic RBC (0-5) /HPF Urine Microscopic WBC (0-5) /HPF Ur Epithelial Cells (None Seen) /HPF Urine Bacteria (None Seen) /HPF Urine Culture Reflexed (NO) Slides for Path Review 12/10/24 12/10/24 12/10/24 Range/Units 05:08 05:08 07:32 WBC 10.4 H (4.23-9.07) x10^3/uL RBC 3.29 L (4.63-6.08) x10^6/uL Hgb 9.3 L (13.7-17.5) g/dL Hct 30.6 L (40.1-51.0) % MCV 93.0 H (79.0-92.2) fL MCH 28.3 (25.7-32.2) pg MCHC 30.4 L (32.3-36.5) g/dL RDW 13.5 (11.6-14.4) % Plt Count 321 (163-337) x10^3/uL MPV 8.9 L (9.4-12.4) fL Gran % 91.5 H (34.0-67.9) % Immature Gran % (Auto) 0.5 H (0.001-0.429) % Nucleat RBC Rel Count 0.0 (0.00-0.2) % Eos # (Auto) 0.01 L (0.04-0.54) x10^3/uL Immature Gran # (Auto) 0.05 H (0.001-0.031) x10^3u/L Absolute Lymphs (auto) 0.38 L (1.32-3.57) x10^3/uL Absolute Monos (auto) 0.43 (0.30-0.82) x10^3/uL Absolute Nucleated RBC 0.00 (0.00-0.012) x10^3u/L Lymphocytes % 3.7 L (21.8-53.1) % Monocytes % 4.1 L (5.3-12.2) % Eosinophils % 0.1 L (0.8-7.0) % Basophils % 0.1 L (0.2-1.2) % Absolute Granulocytes 9.51 H (1.78-5.38) x10^3/uL Basophils # 0.01 (0.01-0.08) x10^3/uL pO2/FiO2 Ratio % VBG pH (7.32-7.42) VBG pCO2 at Pat Temp (42-55) mm/Hg VBG pO2 at Pat Temp (25-40) mm/Hg VBG HCO3 (22-28) meq/L VBG O2 Sat (Imani) (95-100) VBG Base Excess (-2.0-2.0) VBG Hemoglobin VBG Carboxyhemoglobin (0.0-6.9) % T HGB POC Potassium (3.5-5.1) Sodium 135 (135-145) mmol/L Potassium 4.1 (3.5-5.1) mmol/L Chloride 91 L (98-107) mmol/L Carbon Dioxide 38 H (22-30) mmol/L Anion Gap 10.7 (5-15) MEQ/L BUN 36 H (9-20) mg/dL Creatinine 1.27 H (0.66-1.25) mg/dL Estimated GFR 59.3 ML/MIN Glucose 282 H (74-106) mg/dL POC Glucometer 270 H (74 to 106) mg/dL Hemoglobin A1c (4.5-6.0) % Calcium 8.2 L (8.4-10.2) mg/dL Iron (49-181) ug/dL TIBC (261-497) ug/dL Iron Saturation (20-39) % Ferritin (17.9-464) ng/mL Total Bilirubin 0.40 (0.2-1.3) mg/dL AST 28 (17-59) U/L ALT 18 (0-50) U/L Alkaline Phosphatase 86 (38-126) U/L Ammonia (9-30) umol/L Troponin I (0.000-0.033) ng/mL NT-Pro-B Natriuret Pep 1790 (<300) pg/mL Serum Total Protein 6.3 (6.3-8.2) g/dL Albumin 3.7 (3.5-5.0) g/dL Prealbumin 11.36 L (17.6-36.0) mg/dL Vitamin B12 (239-931) pg/mL Folic Acid (2.76 - >20) ng/mL Procalcitonin (0.030-0.080) ng/mL TSH 3rd Generation (0.470-4.680) mIU/L Urine Color (Yellow) Urine Appearance (Clear) Urine pH (4.6-8.0) Ur Specific [place] (1.005-1.030) Urine Protein (Negative) Urine Glucose (UA) (Negative) mg/dL Urine Ketones (Negative) Urine Blood (Negative) Urine Nitrite (Negative) Urine Bilirubin (Negative) Urine Urobilinogen (0.2) mg/dL Ur Leukocyte Esterase (Negative) U Hyaline Cast (Auto) (0-2) /LPF Urine Microscopic RBC (0-5) /HPF Urine Microscopic WBC (0-5) /HPF Ur Epithelial Cells (None Seen) /HPF Urine Bacteria (None Seen) /HPF Urine Culture Reflexed (NO) Slides for Path Review YES Radiology Exams: Radiology Procedures Category Date Time Status CHEST 1 VIEW (PORTABLE) Stat Exams 12/09/24 09:24 Completed ECHO W/2D AND DOPPLER [US] Routine Exams 12/10/24 17:09 Taken HEAD WITHOUT CONTRAST [CT] Stat Exams 12/09/24 10:08 Completed Multi-Disciplinary Progress Notes: Multi-Disciplinary Progress Notes 12/10/24 08:05 Respiratory Note by Kami Javed RT ADMINISTERED PULMICORT ORDERED, PT HR 91, SPO2 92%, PRIOR. DURING TREATMENT, HR GOT UP TO 128, SPO2 WAS 72%. TX STOPPED, PLACED PT ON 6LPM VIA NC WITH BUBBLER, HR DROPPED TO 98 AND SPO2 98%. RN NOTIFIED. WAITER/WAITRESS ECONOMY CLASS NOTIFIED. Initialized on 12/10/24 08:05 - END OF NOTE 12/09/24 19:15 Respiratory Note by Gerardo Means PT WAS 99% ON 10L VIA OXYMASK. PT WAS IN NO DISTRESS AND RESTING COMFORTABLY SO DECREASED O2 TO 8L. WILL CONTINUE TO MONITOR. Initialized on 12/09/24 19:15 - END OF NOTE 12/09/24 16:04 Pharmacy Note by Alfonso Shearer Maxipime changed to 2gm iv q12h per renal dosing policy. Estimated crcl is 45ml/min. Initialized on 12/09/24 16:04 - END OF NOTE 12/09/24 15:46 Pharmacy Note by Alfonso Shearer Tamiflu dose adjusted per renal dosing policy. Give 75mg for first dose, then 30mg bid. Initialized on 12/09/24 15:46 - END OF NOTE Assessment/Plan (1) Acute respiratory failure with hypoxia Current Visit: Yes Status: Acute Assessment & Plan: -CXR demonstrating COPD. New mild bibasilar infiltrates/atelectasis and small effusions. Heart now borderline enlarged again with cardiac valve replacement -Supplemental oxygen to with goal spo2 > 90% -DuoNebs/INH -RT eval and follow -Tamiflu for FluA - renal dosing -Cefepime for possible concomitant bacterial infection - steroids - On baseline 6LNC 100% - 2:2 pneumonia and Flu A Code(s): J96.01 - ACUTE RESPIRATORY FAILURE WITH HYPOXIA (2) Pneumonia Current Visit: Yes Status: Acute Assessment & Plan: - Cefepime IV TID - Steroids, xoponex - IVF - On baseline 6lNC- 100% - CXR: Portable chest now rotated again demonstrating COPD. New mild bibasilar infiltrates/atelectasis and small effusions. Heart now borderline enlarged again with cardiac valve replacement. Bony thorax intact again with osteopenia, degenerative changes, and dextroscoliosis. Code(s): J18.9 - PNEUMONIA, UNSPECIFIED ORGANISM (3) Influenza A H1N1 infection Current Visit: Yes Status: Acute Assessment & Plan: -see ARF - tamiflu Code(s): J10.1 - FLU DUE TO OTH IDENT INFLUENZA VIRUS W OTH RESP MANIFEST (4) COPD (chronic obstructive pulmonary disease) Current Visit: Yes Status: Acute Assessment & Plan: -see ARF (5) BRADEN (acute kidney injury) Current Visit: Yes Status: Acute Assessment & Plan: - creat 1.27- improved - IVF - Betapace held per cardiology recs until BRADEN resolved Code(s): N17.9 - ACUTE KIDNEY FAILURE, UNSPECIFIED (6) HTN (hypertension) Current Visit: Yes Status: Chronic Assessment & Plan: -Hypertensive on arrival - monitor BP closely - resume home meds Code(s): I10 - ESSENTIAL (PRIMARY) HYPERTENSION (7) HLD (hyperlipidemia) Current Visit: Yes Status: Chronic Assessment & Plan: - continue statin Code(s): E78.5 - HYPERLIPIDEMIA, UNSPECIFIED (8) Atrial fibrillation Current Visit: Yes Status: Chronic Assessment & Plan: -Tele - current med list updated today -EKG RATE (120), Sinus Tach, Left [place] Deviation, NORMAL INTERVALS, NORMAL QRS, Other (PVCs, no acute ischemia. QTc 446). 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 -Tele -EKG reviewed -BNP 1170 -Echo - denies active CP Code(s): R79.89 - OTHER SPECIFIED ABNORMAL FINDINGS OF BLOOD CHEMISTRY (10) Hyponatremia Current Visit: Yes Status: Resolved Assessment & Plan: - resolved Code(s): E87.1 - HYPO-OSMOLALITY AND HYPONATREMIA (11) Leukocytosis Current Visit: Yes Status: Acute Assessment & Plan: - WBC 10.4 - IV antibiotic - steroids Code(s): D72.829 - ELEVATED WHITE BLOOD CELL COUNT, UNSPECIFIED (12) Hyperglycemia Current Visit: Yes Status: Acute Assessment & Plan: -No h/o DM - A1C 11.87- new diagnosis of type II DM - nutrition consult -SSI low dose, lantus BID -ADA diet -accuchecks achs Code(s): R73.9 - HYPERGLYCEMIA, UNSPECIFIED (13) New onset type 2 diabetes mellitus Current Visit: Yes Status: Acute Assessment & Plan: - A1C 11.87- new diagnosis of type II DM - Nutrition consult, education - SSI low dose, lantus BID - ADA diet - Accuchecks achs - Nursing to provide education on how to do insulin for d/c. - Case management to assist with home glucose monitor - Education provided on glucose control Code(s): E11.9 - TYPE 2 DIABETES MELLITUS WITHOUT COMPLICATIONS (14) Weakness Current Visit: Yes Status: Acute Assessment & Plan: - Acute on chronic - PT eval for home needs and assessment Code(s): R53.1 - WEAKNESS (15) AMS (altered mental status) Current Visit: Yes Status: Resolved Qualifiers: Altered mental status type: disorientation Qualified Code(s): R41.0 - Disorientation, unspecified Assessment & Plan: - resolved - CT head negative VTE: Heparin PPI: Protonix Next of KIN: daughter Code status: Full D/C plan: tomorrow Code(s): R41.82 - ALTERED MENTAL STATUS, UNSPECIFIED
[2024-12-10] MEDS: Klor Con PO SCH (12:13)
[2024-12-10] MEDS: Lasix 40 MG PO SCH (12:13)
[2024-12-10] MEDS: Zestril 5 MG PO SCH (12:13)
[2024-12-10] MEDS: Flonase NASAL NS SCH (12:15)
[2024-12-10] MEDS: Lantus Insulin SQ SCH (12:15)
[2024-12-10] MEDS: HUMALOG SQ ONE (14:02)
[2024-12-10] MEDS: HEPARIN 5000 UNITS/0.5 ML (HIGH RISK MED) SQ SCH (14:18)
[2024-12-10] MEDS: Protonix 20MG Tablet PO SCH (14:18)
--- NOTE | 2024-12-10 16:27 | XRAY ---
Indication: Pain. Comparison: None 3 view left elbow demonstrates old proximal ulna fracture with intact with orthopedic screw, mild radiocapitellar degenerative changes with multiple heterotopic ossifications, numerous soft tissue metallic shrapnel, and IV catheter in situ. No other bony, articular, or soft tissue abnormalities.
[2024-12-10] MEDS: ZOCOR 20MG PO SCH (21:54)
[2024-12-10] MEDS: AMITRIPTYLINE 25 MG TABLET PO SCH (21:54)
[2024-12-11 05:02] LABS: Hematocrit 29.6 % (40.1-51.0); Mean Cell Volume 93.1 fL (79.0-92.2); Mean Corpuscular Hemoglobin 28.3 pg (25.7-32.2); Mean Corpuscular Hgb Concent. 30.4 g/dL (32.3-36.5); Mean Platelet Volume 9.6 fL (9.4-12.4); Platelet Count 359 x10^3/uL (163-337); Red Blood Count 3.18 x10^6/uL (4.63-6.08); Red Cell Distribution Width 13.6 % (11.6-14.4); White Blood Count 17.1 x10^3/uL (4.23-9.07)
[2024-12-11 05:32] LABS: Calcium 7.7 mg/dL (8.4-10.2)
[2024-12-11 05:46] LABS: ANION GAP 12.5 MEQ/L (5-15); Creatinine 1 1.06 mg/dL (0.66-1.25); EST GLOMERULAR FILTRATION RATE 73.6 ML/MIN; Potassium 3.9 mmol/L (3.5-5.1)
[2024-12-11] MEDS: HUMALOG SQ SCH (08:33)
[2024-12-11] MEDS: Tamiflu 75MG Capsule PO SCH (08:34)
--- NOTE | 2024-12-11 08:40 | XRAY ---
Indication: Short of breath. Leukocytosis. Comparison: December 09, 2024 Portable chest again demonstrates COPD. Again mild bibasilar infiltrates/atelectasis, minimally worsened on right. Diminished bibasilar effusions with tiny residual on right. Heart not enlarged again with cardiac valve replacement. No new cardiopulmonary abnormalities.
[2024-12-11] MEDS: Lantus Insulin SQ SCH (09:55)
[2024-12-11] MEDS: Betapace 80 MG PO SCH (10:02)
--- NOTE | 2024-12-11 11:14 | PCM.NOTE ---
Date and Time: 12/11/24 1107 Subjective Assessment: 12/10/24 Mr. Pardo is a 74-year-old male with a medical history significant for a congenital heart defect, valve replacement in 2017, COPD (requiring 6L oxygen at baseline), hypertension, and hyperlipidemia. He presented to the ED via paramedics with altered mental status (AMS), cough, increased shortness of breath, and generalized weakness and body aches. His daughter, Lorenza, provided the history on admission, reporting that he was in his usual state of health until yesterday ( 12/08) when she noticed his confusion worsening, eventually becoming incoherent, which prompted her to contact EMS. Additionally, his significant other had been hospitalized with FluA and pneumonia and was just released today. Upon arrival to the ED, Mr. Pardo was tachycardic, tachypneic, and hypoxic. EKG showed a heart rate of 120, sinus tachycardia, left axis deviation, and normal intervals and QRS, with PVCs but no acute ischemia. His chest X-ray revealed findings consistent with COPD, mild bibasilar infiltrates/atelectasis, and small effusions. The heart was borderline enlarged due to his cardiac valve replacement. Head CT showed no acute findings. Lab results were notable for leukocytosis, normocytic anemia, acute kidney injury (BRADEN), hyperglycemia, elevated troponins, and mild hyponatremia in the setting of hyperglycemia. The patient was treated with Lasix, Rocephin, Solumedrol, DuoNebs, and IV fluids in the ED. He was admitted for acute respiratory failure secondary to Flu A. Today, Mr. Pardo is awake and alert, with improved cognition, and he complains of body aches from the flu, which have been managed with Tylenol. He is on his baseline oxygen of 6L nasal cannula. His daughter reports that he is back to his baseline cognitively. She is seeking home physical therapy and home health care for him. The case management team will discuss the discharge plan. Additionally, Mr. Pardo was newly diagnosed with diabetes, with an A1c of 11.87, and a nutrition consult was requested. Nursing staff will provide teaching on Lantus and Humalog sliding scale. The plan is for him to be discharged tomorrow, contingent on continued improvement. Continue tamiflu, cefepime, steriods, and xoponex. 12/11/24 Pt resting in bed. He is pending rehab placement at [facility]. He is feeling much better, awake and alert. WBC elevated at 17.1- CXR ordered for further eval. He is on baseline O2 of 6lNC 96%. BRADEN resolved, IVF stopped. Continue tamiflu, cefepime, steriods, and xoponex for pneumonia and flu. He denies any further concerns at this time - Review of Systems Constitutional: Weakness, No Fever, No Chills Eyes: No Symptoms Ears, Nose, & Throat: No Symptoms Respiratory: No Cough, No Short Of Breath Cardiac: No Chest Pain, No Edema, No Syncope Abdominal/Gastrointestinal: No Abdominal Pain, No Nausea, No Vomiting, No Diarrhea Genitourinary Symptoms: No Dysuria Musculoskeletal: No Back Pain, No Neck Pain Skin: No Rash Neurological: No Dizziness, No Focal Weakness, No Sensory Changes Psychological: No Symptoms Endocrine: No Symptoms Hematologic/Lymphatic: No Symptoms Immunological/Allergic: No Symptoms Objective Exam General Appearance: no apparent distress, alert Neurologic Exam: alert, oriented x 3, cooperative, normal mood/affect, nml cerebellar function, sensation nml, motor weakness, No motor deficits Skin Exam: normal color, warm, dry Eye Exam: PERRL, EOMI, eyes nml inspection Ears, Nose, Throat Exam: normal ENT inspection, pharynx normal, moist mucous membranes Neck Exam: normal inspection, non-tender, supple, full range of motion Respiratory Exam: normal breath sounds, lungs clear, No respiratory distress Cardiovascular Exam: regular rate/rhythm, normal heart sounds Gastrointestinal/Abdomen Exam: soft, No tenderness, No mass Extremity Exam: normal inspection, normal range of motion Back Exam: normal inspection, normal range of motion, No CVA tenderness, No vertebral tenderness Male Genitalia Exam: deferred Rectal Exam: deferred Objective Data Vital Signs: Vital Signs - 24 hr Temp Pulse Resp BP Pulse Ox 12/11/24 08:00 97.0 F 86 20 120/58 97 12/11/24 07:37 84 20 96 12/11/24 04:00 86 20 96 12/11/24 00:00 91 H 12/10/24 20:00 96.0 F 82 16 124/58 98 12/10/24 19:19 91 H 18 96 12/10/24 16:00 97.2 F 93 H 22 112/66 98 12/10/24 12:00 97.4 F 96 H 20 126/77 94 L Pain Assessment - Last Documented Pain Intensity 4 Pain Scale Used 0-10 Pain Scale,FLACC Intake and Output: Intake & Output 12/08/24 12/09/24 12/10/24 12/11/24 11:59 11:59 11:59 11:59 Intake Total 340 3220 Output Total 750 150 Balance -410 3070 Weight 84.6 kg 81.5 kg Lab Results: Lab Results-Last 24 Hours 12/09/24 12/10/24 12/10/24 Range/Units 09:46 11:17 11:36 WBC (4.23-9.07) x10^3/uL RBC (4.63-6.08) x10^6/uL Hgb (13.7-17.5) g/dL Hct (40.1-51.0) % MCV (79.0-92.2) fL MCH (25.7-32.2) pg MCHC (32.3-36.5) g/dL RDW (11.6-14.4) % Plt Count (163-337) x10^3/uL MPV (9.4-12.4) fL Sodium (135-145) mmol/L Potassium (3.5-5.1) mmol/L Chloride (98-107) mmol/L Carbon Dioxide (22-30) mmol/L Anion Gap (5-15) MEQ/L BUN (9-20) mg/dL Creatinine (0.66-1.25) mg/dL Estimated GFR ML/MIN Glucose (74-106) mg/dL POC Glucometer 466 H (74 to 106) mg/dL Calcium (8.4-10.2) mg/dL Troponin I 0.047 H* 0.037 H* (0.000-0.033) ng/mL 12/10/24 12/10/24 12/10/24 Range/Units 16:28 22:04 22:04 WBC (4.23-9.07) x10^3/uL RBC (4.63-6.08) x10^6/uL Hgb (13.7-17.5) g/dL Hct (40.1-51.0) % MCV (79.0-92.2) fL MCH (25.7-32.2) pg MCHC (32.3-36.5) g/dL RDW (11.6-14.4) % Plt Count (163-337) x10^3/uL MPV (9.4-12.4) fL Sodium (135-145) mmol/L Potassium (3.5-5.1) mmol/L Chloride (98-107) mmol/L Carbon Dioxide (22-30) mmol/L Anion Gap (5-15) MEQ/L BUN (9-20) mg/dL Creatinine (0.66-1.25) mg/dL Estimated GFR ML/MIN Glucose (74-106) mg/dL POC Glucometer 339 H 188 H 188 H (74 to 106) mg/dL Calcium (8.4-10.2) mg/dL Troponin I (0.000-0.033) ng/mL 12/11/24 12/11/24 12/11/24 Range/Units 04:20 04:20 07:43 WBC 17.1 H (4.23-9.07) x10^3/uL RBC 3.18 L (4.63-6.08) x10^6/uL Hgb 9.0 L (13.7-17.5) g/dL Hct 29.6 L (40.1-51.0) % MCV 93.1 H (79.0-92.2) fL MCH 28.3 (25.7-32.2) pg MCHC 30.4 L (32.3-36.5) g/dL RDW 13.6 (11.6-14.4) % Plt Count 359 H (163-337) x10^3/uL MPV 9.6 (9.4-12.4) fL Sodium 134 L (135-145) mmol/L Potassium 3.9 (3.5-5.1) mmol/L Chloride 91 L (98-107) mmol/L Carbon Dioxide 34 H (22-30) mmol/L Anion Gap 12.5 (5-15) MEQ/L BUN 42 H (9-20) mg/dL Creatinine 1.06 (0.66-1.25) mg/dL Estimated GFR 73.6 ML/MIN Glucose 290 H (74-106) mg/dL POC Glucometer 354 H (74 to 106) mg/dL Calcium 7.7 L (8.4-10.2) mg/dL Troponin I (0.000-0.033) ng/mL Radiology Exams: Radiology Procedures Category Date Time Status CHEST 1 VIEW (PORTABLE) Routine Exams 12/11/24 07:54 Completed ECHO W/2D AND DOPPLER [US] Routine Exams 12/10/24 17:09 Taken ELBOW (MINIMUM 3 VIEWS) Stat Exams 12/10/24 15:42 Completed HEAD WITHOUT CONTRAST [CT] Stat Exams 12/09/24 10:08 Completed Multi-Disciplinary Progress Notes: Multi-Disciplinary Progress Notes 12/11/24 07:46 Pharmacy Note by Alfonso Shearer Renal function improved. Will change Tamiflu back to 75mg dose. Initialized on 12/11/24 07:46 - END OF NOTE 12/10/24 17:00 (created 12/11/24 10:04) Case Management Note by Kenya Pedroza HAS ACCEPTED- WILL NEED AUTH PRIOR TO ADMISSION Initialized on 12/11/24 10:04 - END OF NOTE 12/10/24 14:33 Case Management Note by Kenya Pedroza AFTER WORKING WITH PHYSICAL THERAPY- PATIENT NOW AGREEABLE TO REHAB STAY. DAUGHTER FEELS THIS IS BEST PATIENT WAS NOT STRONG ENOUGH TO EVEN STEP TODAY AND CAREGIVER AT HOME IS SICK ALSO. WE DISCUSSED FACILITIES. SHE WOULD LIKE [facility] HER FIRST CHOICE. REFERRAL FAXED AT THIS TIME WILL NEED PT EVAL SENT WHEN AVAILABLE. PASRR DONE, NO LEVEL II REQUIRED, COPIES PLACED IN CHART AND FAXED WITH REFERRAL Initialized on 12/10/24 14:33 - END OF NOTE 12/10/24 12:09 Case Management Note by Kenya Pedroza S/W CHARLI- PATIENT TO CHECK BS ACHS AT HOME, NEW ORDERS FOR METER, STRIPS AND LANCETS SENT INTO [facility] Initialized on 12/10/24 12:09 - END OF NOTE 12/10/24 12:06 Case Management Note by Cami Cartwright SPOKE AT LENGTH WITH PATIENT DAUGHTER, ZARA, AND PATIENT. DAUGHTER VOICED CONCERNS ABOUT PATIENT GOING HOME WITHOUT ADDITIONAL SUPPORT. PATIENT AGREEABLE FOR [facility] AT THIS TIME. WILL PLAN ON SAME DAY ADMIT. - REFERRAL FAXED TO [facility]. THEY WILL NEED NOTIFIED AT TIME OF DC AT [phone] FOR SAME DAY ADMIT. THEY WILL NEED FAXED THE DC INSTRUCTIONS, DC MED LIST AND DC SUMMARY (IF AVAILABLE) TO [phone]. Initialized on 12/10/24 12:06 - END OF NOTE Assessment/Plan (1) Acute respiratory failure with hypoxia Current Visit: Yes Status: Acute Code(s): J96.01 - ACUTE RESPIRATORY FAILURE WITH HYPOXIA (2) Pneumonia Current Visit: Yes Status: Acute Code(s): J18.9 - PNEUMONIA, UNSPECIFIED ORGANISM (3) Influenza A H1N1 infection Current Visit: Yes Status: Acute Code(s): J10.1 - FLU DUE TO OTH IDENT INFLUENZA VIRUS W OTH RESP MANIFEST (4) COPD (chronic obstructive pulmonary disease) Current Visit: Yes Status: Acute (5) BRADEN (acute kidney injury) Current Visit: Yes Status: Acute Code(s): N17.9 - ACUTE KIDNEY FAILURE, UNSPECIFIED (6) HTN (hypertension) Current Visit: Yes Status: Chronic Code(s): I10 - ESSENTIAL (PRIMARY) HYPERTENSION (7) HLD (hyperlipidemia) Current Visit: Yes Status: Chronic Code(s): E78.5 - HYPERLIPIDEMIA, UNSPECIFIED (8) Atrial fibrillation Current Visit: Yes Status: Chronic Code(s): I48.91 - UNSPECIFIED ATRIAL FIBRILLATION (9) Elevated troponin Current Visit: Yes Status: Acute Code(s): R79.89 - OTHER SPECIFIED ABNORMAL FINDINGS OF BLOOD CHEMISTRY (10) Hyponatremia Current Visit: Yes Status: Resolved Code(s): E87.1 - HYPO-OSMOLALITY AND HYPONATREMIA (11) Leukocytosis Current Visit: Yes Status: Acute Code(s): D72.829 - ELEVATED WHITE BLOOD CELL COUNT, UNSPECIFIED (12) Hyperglycemia Current Visit: Yes Status: Acute Code(s): R73.9 - HYPERGLYCEMIA, UNSPECIFIED (13) New onset type 2 diabetes mellitus Current Visit: Yes Status: Acute Code(s): E11.9 - TYPE 2 DIABETES MELLITUS WITHOUT COMPLICATIONS (14) Weakness Current Visit: Yes Status: Acute Code(s): R53.1 - WEAKNESS (15) AMS (altered mental status) Current Visit: Yes Status: Resolved Qualifiers: Altered mental status type: disorientation Qualified Code(s): R41.0 - Disorientation, unspecified Assessment & Plan: (1) Acute respiratory failure with hypoxia Current Visit: Yes Status: Acute Assessment & Plan: -CXR demonstrating COPD. New mild bibasilar infiltrates/atelectasis and small effusions. Heart now borderline enlarged again with cardiac valve replacement -Supplemental oxygen to with goal spo2 > 90% -DuoNebs/INH -RT eval and follow -Tamiflu for FluA - renal dosing -Cefepime for possible concomitant bacterial infection - steroids - On baseline 6LNC 100% - 2:2 pneumonia and Flu A Code(s): J96.01 - ACUTE RESPIRATORY FAILURE WITH HYPOXIA (2) Pneumonia Current Visit: Yes Status: Acute Assessment & Plan: - Cefepime IV TID - Steroids, xoponex - IVF - On baseline 6lNC- 100% - CXR: Portable chest now rotated again demonstrating COPD. New mild bibasilar infiltrates/atelectasis and small effusions. Heart now borderline enlarged again with cardiac valve replacement. Bony thorax intact again with osteopenia, degenerative changes, and dextroscoliosis. 12/11 - steroids reduced to BID - CXR- reviewed Code(s): J18.9 - PNEUMONIA, UNSPECIFIED ORGANISM (3) Influenza A H1N1 infection Current Visit: Yes Status: Acute Assessment & Plan: -see ARF - tamiflu Code(s): J10.1 - FLU DUE TO OTH IDENT INFLUENZA VIRUS W OTH RESP MANIFEST (4) COPD (chronic obstructive pulmonary disease) Current Visit: Yes Status: Acute Assessment & Plan: -see ARF (5) BRADEN (acute kidney injury) Current Visit: Yes Status: Acute Assessment & Plan: - creat 1.27- improved - IVF - Betapace held per cardiology recs until BRADEN resolved Code(s): N17.9 - ACUTE KIDNEY FAILURE, UNSPECIFIED (6) HTN (hypertension) Current Visit: Yes Status: Chronic Assessment & Plan: -Hypertensive on arrival - monitor BP closely - resume home meds Code(s): I10 - ESSENTIAL (PRIMARY) HYPERTENSION (7) HLD (hyperlipidemia) Current Visit: Yes Status: Chronic Assessment & Plan: - continue statin Code(s): E78.5 - HYPERLIPIDEMIA, UNSPECIFIED (8) Atrial fibrillation Current Visit: Yes Status: Chronic Assessment & Plan: -Tele - current med list updated today -EKG RATE (120), Sinus Tach, Left [place] Deviation, NORMAL INTERVALS, NORMAL QRS, Other (PVCs, no acute ischemia. QTc 446). 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 -Tele -EKG reviewed -BNP 1170 -Echo- reviewed- EF 74% - denies active CP Code(s): R79.89 - OTHER SPECIFIED ABNORMAL FINDINGS OF BLOOD CHEMISTRY (10) Hyponatremia Current Visit: Yes Status: Resolved Assessment & Plan: - resolved Code(s): E87.1 - HYPO-OSMOLALITY AND HYPONATREMIA (11) Leukocytosis Current Visit: Yes Status: Acute Assessment & Plan: - WBC 10.4 - IV antibiotic - steroids 12/11 - WBC 17.1- may be 2:2 steroids - CXR- reviewed - continue IV antibiotic - Steroids reduced Code(s): D72.829 - ELEVATED WHITE BLOOD CELL COUNT, UNSPECIFIED (12) Hyperglycemia Current Visit: Yes Status: Acute Assessment & Plan: -No h/o DM - A1C 11.87- new diagnosis of type II DM - nutrition consult -SSI low dose, lantus BID -ADA diet -accuchecks achs Code(s): R73.9 - HYPERGLYCEMIA, UNSPECIFIED (13) New onset type 2 diabetes mellitus Current Visit: Yes Status: Acute Assessment & Plan: - A1C 11.87- new diagnosis of type II DM - Nutrition consult, education - SSI low dose, lantus BID - ADA diet - Accuchecks achs - Nursing to provide education on how to do insulin for d/c. - Case management to assist with home glucose monitor - Education provided on glucose control 12/11 - Humalog 5 units added with each meal - Lantus changed to daily Code(s): E11.9 - TYPE 2 DIABETES MELLITUS WITHOUT COMPLICATIONS (14) Weakness Current Visit: Yes Status: Acute Assessment & Plan: - Acute on chronic - PT eval for home needs and assessment 12/11 - pending rehab placement Code(s): R53.1 - WEAKNESS (15) AMS (altered mental status) Current Visit: Yes Status: Resolved Qualifiers: Altered mental status type: disorientation Qualified Code(s): R41.0 - Disorientation, unspecified Assessment & Plan: - resolved - CT head negative Code(s): R41.82 - ALTERED MENTAL STATUS, UNSPECIFIED Code(s): R41.82 - ALTERED MENTAL STATUS, UNSPECIFIED (16) Iron deficiency anemia Current Visit: Yes Status: Acute Assessment & Plan: - Iron labs reviewed - Iron sat 10 - ferrous sulfate daily - Hgb 9.0- trend VTE: Heparin PPI: Protonix Next of KIN: daughter Code status: Full D/C plan: tomorrow- pending placement Code(s): D50.9 - IRON DEFICIENCY ANEMIA, UNSPECIFIED
--- NOTE | 2024-12-11 11:51 | PCM.DS ---
Discharge Summary Date of Admission: 12/09/24 14:59 Date of Discharge: 12/11/24 Admitting Physician: NIKIA GOLDBERG MD Consults: Consults on Case 12/10/24 10:20 Nutritional Consult ROUTINE Primary Care Provider: CHIOMA HANNAH Allergies Allergies No Known Drug Allergies Allergy (Verified 12/09/24 09:35) Hospital Summary - Hospital Course Hospital Course: 12/10/24 Mr. Pardo is a 74-year-old male with a medical history significant for a congenital heart defect, valve replacement in 2017, COPD (requiring 6L oxygen at baseline), hypertension, and hyperlipidemia. He presented to the ED via paramedics with altered mental status (AMS), cough, increased shortness of breath, and generalized weakness and body aches. His daughter, Lorenza, provided the history on admission, reporting that he was in his usual state of health until yesterday ( 12/08) when she noticed his confusion worsening, eventually becoming incoherent, which prompted her to contact EMS. Additionally, his significant other had been hospitalized with FluA and pneumonia and was just released today. Upon arrival to the ED, Mr. Pardo was tachycardic, tachypneic, and hypoxic. EKG showed a heart rate of 120, sinus tachycardia, left axis deviation, and normal intervals and QRS, with PVCs but no acute ischemia. His chest X-ray revealed findings consistent with COPD, mild bibasilar infiltrates/atelectasis, and small effusions. The heart was borderline enlarged due to his cardiac valve replacement. Head CT showed no acute findings. Lab results were notable for leukocytosis, normocytic anemia, acute kidney injury (BRADEN), hyperglycemia, elevated troponins, and mild hyponatremia in the setting of hyperglycemia. The p atient was treated with Lasix, Rocephin, Solumedrol, DuoNebs, and IV fluids in the ED. He was admitted for acute respiratory failure secondary to Flu A. Today, Mr. Pardo is awake and alert, with improved cognition, and he complains of body aches from the flu, which have been managed with Tylenol. He is on his baseline oxygen of 6L nasal cannula. His daughter reports that he is back to his baseline cognitively. She is seeking home physical therapy and home health care for him. The case management team will discuss the discharge plan. Additionally, Mr. Pardo was newly diagnosed with diabetes, with an A1c of 11.87, and a nutrition consult was requested. Nursing staff will provide teaching on Lantus and Humalog sliding scale. The plan is for him to be discharged tomorrow, contingent on continued improvement. Continue tamiflu, cefepime, steriods, and xoponex. 12/11/24 Pt resting in bed.Plan is to d/c to [facility] for rehab. He is feeling much better, awake and alert. WBC elevated at 17.1- CXR ordered for further eval. He is on baseline O2 of 6lNC 96%. BRADEN resolved, IVF stopped. Continue tamiflu, cefepime, steriods, and xoponex for pneumonia and flu. He denies any further concerns at this time. - Vitals & Intake/Output Vital Signs: Vital Signs Temperature 97.0 F 12/11/24 08:00 Pulse Rate 86 12/11/24 08:00 Respiratory Rate 20 12/11/24 08:00 Blood Pressure 120/58 12/11/24 08:00 O2 Sat by Pulse Oximetry 97 12/11/24 08:00 Intake & Output: Intake & Output 12/08/24 12/09/24 12/10/24 12/11/24 11:59 11:59 11:59 11:59 Intake Total 340 3220 Output Total 750 150 Balance -410 3070 Weight 84.6 kg 81.5 kg - Lab Result Diagrams: 12/11/24 04:20 12/11/24 04:20 Lab Results-Last 24 Hrs: Lab Results-Last 24 Hours 12/09/24 12/10/24 12/10/24 Range/Units 09:46 11:17 16:28 WBC (4.23-9.07) x10^3/uL RBC (4.63-6.08) x10^6/uL Hgb (13.7-17.5) g/dL Hct (40.1-51.0) % MCV (79.0-92.2) fL MCH (25.7-32.2) pg MCHC (32.3-36.5) g/dL RDW (11.6-14.4) % Plt Count (163-337) x10^3/uL MPV (9.4-12.4) fL Sodium (135-145) mmol/L Potassium (3.5-5.1) mmol/L Chloride (98-107) mmol/L Carbon Dioxide (22-30) mmol/L Anion Gap (5-15) MEQ/L BUN (9-20) mg/dL Creatinine (0.66-1.25) mg/dL Estimated GFR ML/MIN Glucose (74-106) mg/dL POC Glucometer 339 H (74 to 106) mg/dL Calcium (8.4-10.2) mg/dL Troponin I 0.047 H* 0.037 H* (0.000-0.033) ng/mL 12/10/24 12/10/24 12/11/24 Range/Units 22:04 22:04 04:20 WBC 17.1 H (4.23-9.07) x10^3/uL RBC 3.18 L (4.63-6.08) x10^6/uL Hgb 9.0 L (13.7-17.5) g/dL Hct 29.6 L (40.1-51.0) % MCV 93.1 H (79.0-92.2) fL MCH 28.3 (25.7-32.2) pg MCHC 30.4 L (32.3-36.5) g/dL RDW 13.6 (11.6-14.4) % Plt Count 359 H (163-337) x10^3/uL MPV 9.6 (9.4-12.4) fL Sodium (135-145) mmol/L Potassium (3.5-5.1) mmol/L Chloride (98-107) mmol/L Carbon Dioxide (22-30) mmol/L Anion Gap (5-15) MEQ/L BUN (9-20) mg/dL Creatinine (0.66-1.25) mg/dL Estimated GFR ML/MIN Glucose (74-106) mg/dL POC Glucometer 188 H 188 H (74 to 106) mg/dL Calcium (8.4-10.2) mg/dL Troponin I (0.000-0.033) ng/mL 12/11/24 12/11/24 Range/Units 04:20 07:43 WBC (4.23-9.07) x10^3/uL RBC (4.63-6.08) x10^6/uL Hgb (13.7-17.5) g/dL Hct (40.1-51.0) % MCV (79.0-92.2) fL MCH (25.7-32.2) pg MCHC (32.3-36.5) g/dL RDW (11.6-14.4) % Plt Count (163-337) x10^3/uL MPV (9.4-12.4) fL Sodium 134 L (135-145) mmol/L Potassium 3.9 (3.5-5.1) mmol/L Chloride 91 L (98-107) mmol/L Carbon Dioxide 34 H (22-30) mmol/L Anion Gap 12.5 (5-15) MEQ/L BUN 42 H (9-20) mg/dL Creatinine 1.06 (0.66-1.25) mg/dL Estimated GFR 73.6 ML/MIN Glucose 290 H (74-106) mg/dL POC Glucometer 354 H (74 to 106) mg/dL Calcium 7.7 L (8.4-10.2) mg/dL Troponin I (0.000-0.033) ng/mL Micro Results-Entire Visit: Microbiology 12/09/24 09:40 Blood Culture - Preliminary Blood 12/09/24 09:46 Blood Culture - Preliminary Blood Accuchecks Date 12/11/24 Date 12/10/24 - Radiology Exams Ordered Rad Exams-Entire Visit: Radiology Procedures Category Date Time Status CHEST 1 VIEW (PORTABLE) Routine Exams 12/11/24 07:54 Completed ECHO W/2D AND DOPPLER [US] Routine Exams 12/10/24 17:09 Taken ELBOW (MINIMUM 3 VIEWS) Stat Exams 12/10/24 15:42 Completed - Procedures and Test Procedures and Tests throughout Hospitalization: Therapy Orders & Screens 12/09/24 15:15 EKG REPEAT IN AM Comment: Oxygen Oxymask LPM 10 lpm Comment: Respiratory Therapy Consult ONCE Comment: Reason For Exam: 12/09/24 16:31 PT Screen per Nursing Assess ONCE Comment: Protocol Order Physician Instructions: Greater than 3 points order PT Admission Screenin Reason For Exam: Triggered on Admission Diagnosis: Influenza, hypoxia, elevated troponin Open Wound/Cellutlitis/Pressure Ulcers: Yes Acute Fx/ORIF/Change in wt bearing status: No Severe MUSCULOSKELETAL pain: No ADL Dysfunction: No Acute CVA w/Hemiparesis/Hemiplegia: No Decreased Functional Mobility/Strength: No Sprain/Strain: No Acute Post-op Mobility Dysfunction: No Total Points: 5 RT Screen per Nursing Assess ONCE Comment: Protocol Order Physician Instructions: Greater than 3 points order RT Admission Screen Reason For Exam: Triggered on Admission Diagnosis: Influenza, hypoxia, elevated troponin Diagnosis: Influenza, hypoxia, elevated troponin Pneumonia: Yes Home O2: Yes Asthma: No CHF: No Home CPAP/BIPAP: No Home Nebs/MDI: Yes Total Points: 13 ST Screen per Nursing Assess ONCE Comment: Protocol Order Physician Instructions: Greater than [address] Admission Screening Reason For Exam: Triggered on Admission Diagnosis: Influenza, hypoxia, elevated troponin CVA/Dysphagia/Aphasia: No Cognitive Deficits: No Dehydration/Nutrition Deficit: No Reflux: No Oral-Motor Difficulties: No Pneumonia: Yes Snf Resident: No Total Points: 5 12/09/24 17:17 EKG ONCE Comment: Diagnosis: Influenza, hypoxia, elevated troponin 12/10/24 02:15 BiPap/CPAP ROUTINE Comment: Diagnosis: Influenza, hypoxia, elevated troponin 12/10/24 07:00 Respiratory Therapy Assessment DAILY Comment: 12/10/24 07:47 RT Miscellaneous Order ROUTINE Comment: Physician Instructions: Reason For Exam: wean O2 keep > 92% Diagnosis: Influenza, hypoxia, elevated troponin 12/10/24 10:19 PT Eval & Treat (MD Order) ONCE Reason for Eval:: Home needs, weakness Diagnosis: Influenza, hypoxia, elevated troponin Discharge Exam General Appearance: no apparent distress, alert Neurologic Exam: alert, oriented x 3, cooperative, normal mood/affect, nml cerebellar function, sensation nml, motor weakness, No motor deficits Eye Exam: PERRL, EOMI, eyes nml inspection Ears, Nose, Throat Exam: normal ENT inspection, pharynx normal, moist mucous membranes Neck Exam: normal inspection, non-tender, supple, full range of motion Respiratory Exam: normal breath sounds, lungs clear, No respiratory distress Cardiovascular Exam: regular rate/rhythm, normal heart sounds Gastrointestinal/Abdomen Exam: soft, No tenderness, No mass Male Genitalia Exam: deferred Rectal Exam: deferred Back Exam: normal inspection, normal range of motion, No CVA tenderness, No vertebral tenderness Extremity Exam: normal inspection, normal range of motion Skin Exam: normal color, warm, dry Final Diagnosis/Problem List - Final Discharge Diagnosis/Problem (1) Acute respiratory failure with hypoxia Current Visit: Yes Status: Acute Code(s): J96.01 - ACUTE RESPIRATORY FAILURE WITH HYPOXIA (2) Pneumonia Current Visit: Yes Status: Acute Code(s): J18.9 - PNEUMONIA, UNSPECIFIED ORGANISM (3) Influenza A H1N1 infection Current Visit: Yes Status: Acute Code(s): J10.1 - FLU DUE TO OTH IDENT INFLUENZA VIRUS W OTH RESP MANIFEST (4) COPD (chronic obstructive pulmonary disease) Current Visit: Yes Status: Acute (5) BRADEN (acute kidney injury) Current Visit: Yes Status: Acute Code(s): N17.9 - ACUTE KIDNEY FAILURE, UNSPECIFIED (6) HTN (hypertension) Current Visit: Yes Status: Chronic Code(s): I10 - ESSENTIAL (PRIMARY) HYPERTENSION (7) HLD (hyperlipidemia) Current Visit: Yes Status: Chronic Code(s): E78.5 - HYPERLIPIDEMIA, UNSPECIFIED (8) Atrial fibrillation Current Visit: Yes Status: Chronic Code(s): I48.91 - UNSPECIFIED ATRIAL FIBRILLATION (9) Elevated troponin Current Visit: Yes Status: Acute Code(s): R79.89 - OTHER SPECIFIED ABNORMAL FINDINGS OF BLOOD CHEMISTRY (10) Hyponatremia Current Visit: Yes Status: Resolved Code(s): E87.1 - HYPO-OSMOLALITY AND HYPONATREMIA (11) Leukocytosis Current Visit: Yes Status: Acute Code(s): D72.829 - ELEVATED WHITE BLOOD CELL COUNT, UNSPECIFIED (12) Hyperglycemia Current Visit: Yes Status: Acute Code(s): R73.9 - HYPERGLYCEMIA, UNSPECIFIED (13) New onset type 2 diabetes mellitus Current Visit: Yes Status: Acute Code(s): E11.9 - TYPE 2 DIABETES MELLITUS WITHOUT COMPLICATIONS (14) Weakness Current Visit: Yes Status: Acute Code(s): R53.1 - WEAKNESS (15) AMS (altered mental status) Current Visit: Yes Status: Resolved Code(s): R41.82 - ALTERED MENTAL STATUS, UNSPECIFIED (16) Iron deficiency anemia Current Visit: Yes Status: Acute Assessment & Plan: (1) Acute respiratory failure with hypoxia Current Visit: Yes Status: Acute Assessment & Plan: -CXR demonstrating COPD. New mild bibasilar infiltrates/atelectasis and small effusions. Heart now borderline enlarged again with cardiac valve replacement -Supplemental oxygen to with goal spo2 > 90% -DuoNebs/INH -RT eval and follow -Tamiflu for FluA - renal dosing -Cefepime for possible concomitant bacterial infection - steroids - On baseline 6LNC 100% - 2:2 pneumonia and Flu A Code(s): J96.01 - ACUTE RESPIRATORY FAILURE WITH HYPOXIA (2) Pneumonia Current Visit: Yes Status: Acute Assessment & Plan: - Cefepime IV TID - Steroids, xoponex - IVF - On baseline 6lNC- 100% - CXR: Portable chest now rotated again demonstrating COPD. New mild bibasilar infiltrates/atelectasis and small effusions. Heart now borderline enlarged again with cardiac valve replacement. Bony thorax intact again with osteopenia, degenerative changes, and dextroscoliosis. 12/11 - steroids reduced to BID - CXR- reviewed Code(s): J18.9 - PNEUMONIA, UNSPECIFIED ORGANISM (3) Influenza A H1N1 infection Current Visit: Yes Status: Acute Assessment & Plan: -see ARF - tamiflu Code(s): J10.1 - FLU DUE TO OTH IDENT INFLUENZA VIRUS W OTH RESP MANIFEST (4) COPD (chronic obstructive pulmonary disease) Current Visit: Yes Status: Acute Assessment & Plan: -see ARF (5) BRADEN (acute kidney injury) Current Visit: Yes Status: Acute Assessment & Plan: - creat 1.27- improved - IVF - Betapace held per cardiology recs until BRADEN resolved Code(s): N17.9 - ACUTE KIDNEY FAILURE, UNSPECIFIED (6) HTN (hypertension) Current Visit: Yes Status: Chronic Assessment & Plan: -Hypertensive on arrival - monitor BP closely - resume home meds Code(s): I10 - ESSENTIAL (PRIMARY) HYPERTENSION (7) HLD (hyperlipidemia) Current Visit: Yes Status: Chronic Assessment & Plan: - continue statin Code(s): E78.5 - HYPERLIPIDEMIA, UNSPECIFIED (8) Atrial fibrillation Current Visit: Yes Status: Chronic Assessment & Plan: -Tele - current med list updated today -EKG RATE (120), Sinus Tach, Left [place] Deviation, NORMAL INTERVALS, NORMAL QRS, Other (PVCs, no acute ischemia. QTc 446). -Repeat EKG in the morning -HR now controlled at 93 - cardiology consult - unsure why not on anticoagulation OP- will defer to OP purchaser Code(s): I48.91 - UNSPECIFIED ATRIAL FIBRILLATION (9) Elevated troponin Current Visit: Yes Status: Acute Assessment & Plan: -Reviewed 0.047, 0.063- 3rd trop pending - cardiology consulted- reviewed note and agree with plan of care. -Tele -EKG reviewed -BNP 1170 -Echo- reviewed- EF 74% - denies active CP Code(s): R79.89 - OTHER SPECIFIED ABNORMAL FINDINGS OF BLOOD CHEMISTRY (10) Hyponatremia Current Visit: Yes Status: Resolved Assessment & Plan: - resolved Code(s): E87.1 - HYPO-OSMOLALITY AND HYPONATREMIA (11) Leukocytosis Current Visit: Yes Status: Acute Assessment & Plan: - WBC 10.4 - IV antibiotic - steroids 12/11 - WBC 17.1- may be 2:2 steroids - CXR- reviewed - continue IV antibiotic - Steroids reduced Code(s): D72.829 - ELEVATED WHITE BLOOD CELL COUNT, UNSPECIFIED (12) Hyperglycemia Current Visit: Yes Status: Acute Assessment & Plan: -No h/o DM - A1C 11.87- new diagnosis of type II DM - nutrition consult -SSI low dose, lantus BID -ADA diet -accuchecks achs Code(s): R73.9 - HYPERGLYCEMIA, UNSPECIFIED (13) New onset type 2 diabetes mellitus Current Visit: Yes Status: Acute Assessment & Plan: - A1C 11.87- new diagnosis of type II DM - Nutrition consult, education - SSI low dose, lantus BID - ADA diet - Accuchecks achs - Nursing to provide education on how to do insulin for d/c. - Case management to assist with home glucose monitor - Education provided on glucose control 12/11 - Humalog 5 units added with each meal - Lantus changed to daily Code(s): E11.9 - TYPE 2 DIABETES MELLITUS WITHOUT COMPLICATIONS (14) Weakness Current Visit: Yes Status: Acute Assessment & Plan: - Acute on chronic - PT eval for home needs and assessment 12/11 - pending rehab placement Code(s): R53.1 - WEAKNESS (15) AMS (altered mental status) Current Visit: Yes Status: Resolved Qualifiers: Altered mental status type: disorientation Qualified Code(s): R41.0 - Disorientation, unspecified Assessment & Plan: - resolved - CT head negative Code(s): R41.82 - ALTERED MENTAL STATUS, UNSPECIFIED (16) Iron deficiency anemia Current Visit: Yes Status: Acute Assessment & Plan: - Iron labs reviewed - Iron sat 10 - ferrous sulfate daily - Hgb 9.0- trend Code(s): D50.9 - IRON DEFICIENCY ANEMIA, UNSPECIFIED - Discharge Discharge Date: 12/11/24 Disposition: Home, Self-Care Condition: Fair Prescriptions: New Blood-Glucose Meter [Accu-Chek Guide Me Glucose Mtr] 1 each UD #1 misc Blood Sugar Diagnostic [Accu-Chek Guide Test Strip] 1 each ACHS #150 strip Lancets [Accu-Chek Softclix] 1 each UD #150 misc Ferrous Sulfate 325 mg [Feosol 325 mg] 325 mg PO DAILY 30 Days #30 tablet Insulin Glargine [Lantus Insulin] 20 unit SQ QAM unit Oseltamivir 75 mg [Tamiflu 75MG Capsule] 75 mg PO BIDWM 5 Days #10 cap Acetaminophen 325 mg [Tylenol 325 mg] 650 mg PO Q4H PRN PRN tablet PRN Reason: Pain, Fever, Headache levalbuterol HCl [Xopenex 1.25 MG/0.5 ML UD NEBULE] 1.25 mg IH Q4H PRN PRN PRN Reason: Shortness Of Breath Continue Sotalol HCl 80 mg [Betapace 80 MG] 80 mg PO BID Potassium Chloride 10 meq PO DAILY lisinopriL [Zestril] 2.5 mg PO DAILY Fluticasone Propionate [Flonase NASAL] 50 mcg INTRANASAL DAILY Atorvastatin Calcium 80 mg PO HS Amitriptyline HCl 25 mg [Amitriptyline 25 mg Tablet] 25 mg PO HS Furosemide 40 mg [Lasix 40 MG] 40 mg PO DAILY Additional Instructions: TEST YOUR BLOOD SUGAR THREE TIMES A DAY BEFORE MEALS AND AGAIN BEFORE BEDTIME. KEEP LOG- TAKE TO YOUR FOLLOW UP APT. GLUCOMETER, TEST STRIP AND LANCETS SENT INTO [facility] THERE IS A DIABETIC COURSE AT [facility] 02/04/25- IF YOU ARE INTERESTED YOU NEED TO CALL AND REGISTER WITH THE EDUCATION DEPARTMENT AT [phone] ext [phone] [facility] HAS BEEN SET UP FOR YOU. THEY WILL CONTACT YOU TO ARRANGE A TIME TO COME SEE YOU. THEIR PHONE # IS [phone]. Recheck CBC Saturday Follow up with: TYRESE MOORE MD [CONSULTING PHYSICIAN] - 12/21/24 2:00 pm CHIOMA HANNAH MD [Primary Care Provider] - 12/18/24 3:00 pm
[2024-12-11 12:06] VITALS: BP 143/97; PULSE 93; RESP 16; TEMP 98; O2SAT 95
[2024-12-11] MEDS: FEOSOL 325 MG PO SCH (12:08)
[2024-12-11] MEDS ORDERED: solu-MEDROL 40 MG, Sterile H2O 10 ml 1 ML IV SCH (18:00)
== END 2024-12-11 15:37 ==
LOC: ED 09:16 → MED SURG 14:59
PROVIDERS: ADMIT Internal Medicine; ATTEND Internal Medicine
DX: J96.01 Acute respiratory failure with hypoxia (principal); J18.9 Pneumonia, unspecified organism; J10.1 Influenza due to other identified influenza virus with other respiratory manifestations; J44.9 Chronic obstructive pulmonary disease, unspecified; N17.9 Acute kidney failure, unspecified; I10 Essential (primary) hypertension; E78.5 Hyperlipidemia, unspecified; I48.91 Unspecified atrial fibrillation; R79.89 Other specified abnormal findings of blood chemistry; E87.1 Hypo-osmolality and hyponatremia; D72.829 Elevated white blood cell count, unspecified; E11.65 Type 2 diabetes mellitus with hyperglycemia; R53.1 Weakness; R41.82 Altered mental status, unspecified; D64.9 Anemia, unspecified; Z99.81 Dependence on supplemental oxygen; Z79.899 Other long term (current) drug therapy
CPT/HCPCS: 0241U; 36415; 36600; 70450; 71045; 73080; 80048; 80053; 81001; 82140; 82375; 82607; 82728; 82746; 82803; 82805; 82947; 83036; 83540; 83550; 83605; 83735; 83880; 84134; 84145; 84443; 84484; 85025; 85027; 87040; 93005; 93041; 93268; 93306; 94002; 94640; 94760; 96374; 96375; 97163; 97530; 99291; G0378; Q3014; 46050; 99285; J0690; J0692; J0696; J1644; J1817; J1940; J2060; J2919; A9270-GY

== ENCOUNTER 2025-07-19 22:07 | Inpatient (IN) | payer MEDICARE ==
--- NOTE | 2025-07-19 22:31 | ERPHSYRPT ---
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, he is on 20 mg of prednisone daily, He denied having any falls or recent injuries, no history of recurrent back pain Timing/Duration: today Method of Injury: unknown Quality: aching Back Pain Location: lumbar spine Severity of Pain-Max: none Severity of Pain-Current: severe Associated Symptoms: denies symptoms Previous symptoms: no prior history Body Map: 1 - area of pain Allergies/Adverse Reactions: No Known Drug Allergies Allergy (Verified 07/19/25 22:12) Home Medications: Amitriptyline HCl 25 mg [Amitriptyline 25 mg Tablet] 25 mg PO HS 12/09/24 [History] Atorvastatin Calcium 80 mg PO HS 12/09/24 [History] Fluticasone Propionate [Flonase NASAL] 50 mcg INTRANASAL DAILY 12/09/24 [History] Furosemide 40 mg [Lasix 40 MG] 40 mg PO DAILY 12/09/24 [History] Potassium Chloride 10 meq PO DAILY 12/09/24 [History] Sotalol HCl 80 mg [Betapace 80 MG] 80 mg PO BID 12/09/24 [History] Insulin Degludec [Tresiba Flextouch U-200] 30 unit SQ HS 07/19/25 [History] Ipratropium/Albuterol Sulfate [Iprat-Albut 0.5-3(2.5) mg/3 ml] 3 ml IH Q4H 07/19/25 [History] Metformin HCl 500 mg [Glucophage 500 MG] 500 mg PO DAILY 07/19/25 [History] Prednisone 20 mg [Deltasone 20 mg] 20 mg PO DAILY 07/19/25 [History] Hx Tetanus, Diphtheria Vaccination/Date Given: (unknown) Hx Influenza Vaccination/Date Given: (unknown) Hx Pneumococcal Vaccination/Date Given: (unknown) Travel Risk - Emerging Infectious Disease Are you exhibiting symptoms associated with any current EIDs: Yes Symptoms: Cough: New Onset, Headaches/Body Aches/, Shortness of Breath - Past Medical History Pertinent Past Medical History: Yes Neurological History: No Pertinent History ENT History: No Pertinent History Cardiac History: Arrhythmia, Congenital Heart Disease, Coronary Artery Disease, High Cholesterol, Hypertension Respiratory History: COPD Endocrine Medical History: Diabetes Type II Musculoskeletal History: Arthritis GI Medical History: No Pertinent History History: No Pertinent History Psycho-Social History: No Pertinent History Male Reproductive Disorders: No Pertinent History Other Medical History: SEE ABOVE LISTED PMH - Past Surgical History Past Surgical History: Yes Neuro Surgical History: No Pertinent History Cardiac: Valve Replacement Respiratory: No Pertinent History Gastrointestinal: No Pertinent History Genitourinary: No Pertinent History Musculoskeletal: No Pertinent History Male Surgical History: No Pertinent History Other Surgical History: open heart surgery at age 7 Significant Family History: heart disease, cancer, diabetes - Social History Smoking Status: Former smoker Exposure to second hand smoke: Yes Drug Use: none - Social Determinants of Health Will the patient participate in the screening: Yes Do you worry about a steady place to live?: No In the past 12 months,have you had to go without utilities?: No Transportation Issues: No Has anyone in your support network made you feel unsafe?: No Have you or anyone in your house had to go w/o enough food: No - Nursing Vital Signs Nursing Vital Signs: Initial Vital Signs Temperature 95.8 F 07/19/25 22:13 Pulse Rate 82 07/19/25 22:13 Respiratory Rate 24 07/19/25 22:13 Blood Pressure 70/50 07/19/25 22:13 O2 Sat by Pulse Oximetry 92 L 07/19/25 22:13 Pain Scale Pain Intensity [Lower Back] 4 Pain Intensity 4 - Physical Exam General Appearance: no apparent distress, alert Eye Exam: PERRL/EOMI, eyes nml inspection Ears, Nose, Throat Exam: normal ENT inspection, pharynx normal Neck Exam: normal inspection, non-tender, supple, full range of motion Respiratory Exam: accessory muscle use, prolonged expirations, wheezing Cardiovascular Exam: regular rate/rhythm, normal heart sounds Back Exam: vertebral tenderness (L2-5), decreased range of motion (do to pain) Extremity Exam: normal inspection, normal range of motion Neurologic Exam: alert, oriented x 3, cooperative, butter wrapper II-XII nml as tested, normal mood/affect, nml cerebellar function Skin Exam: normal color, warm, dry - Course EKG Interpreted by Me: Sinus Rhythm, NORMAL AXIS, NORMAL INTERVALS, NORMAL QRS, NORMAL ST-T - Radiology Exams Chest X-ray Interpretation: Interpreted by me, No Pneumothorax, No Infiltrates Ordered Tests: Active Orders 24 hr Category Date Time Status Gear Roller STAT Care 07/19/25 22:39 Active EKG-ER Only STAT Care 07/19/25 22:38 Active CHEST 1 VIEW (PORTABLE) Stat Exams 07/19/25 22:39 Taken BLOOD CULTURE Stat Lab 07/19/25 23:50 Received CBC W DIFF Stat Lab 07/19/25 22:50 Completed CMP Stat Lab 07/19/25 22:50 Completed Lactic Acid Stat Lab 07/19/25 22:45 Completed Lactic Acid Stat Lab 07/19/25 23:56 Completed MAGNESIUM Stat Lab 07/19/25 22:50 Completed POCT GLUCOSE Stat Lab 07/19/25 22:45 Completed TROPONIN Q2H Lab 07/19/25 22:50 Completed UA W/RFX UR CULTURE Stat Lab 07/20/25 00:31 Ordered Medication Summary Discontinued Medications Generic Name Dose Route Start Last Admin Trade Name Freq PRN Reason Stop Dose Admin Sodium Chloride 1,000 mls @ 999 mls/hr 07/19/25 22:38 07/19/25 23:54 Sodium Chloride 0.9% 1000 Ml IV 07/19/25 23:38 Infused .Q1H1M STA Infusion Sodium Chloride Confirm 07/19/25 22:48 Sodium Chloride 0.9% 1000 Ml Administered 07/19/25 22:49 Dose 1,000 mls @ ud .ROUTE .STK-MED ONE Ceftriaxone Sodium 1 gm in 100 mls @ 200 mls/hr 07/19/25 23:35 07/20/25 00:32 Rocephin 1 Gm / 100 Ml Nacl IV 07/20/25 00:04 Infused STAT ONE Infusion Ceftriaxone Sodium Confirm 07/19/25 23:52 Rocephin 1 Gm / 100 Ml Nacl Administered 07/19/25 23:53 Dose 1 gm in 100 mls @ ud IV .STK-MED ONE Oxycodone/Acetaminophen 1 tab 07/19/25 22:31 07/19/25 23:50 Oxycodone Hcl/Apap 5 Mg/325 Mg Tablet PO 07/19/25 22:32 Not Given STAT ONE Lab/Rad Data: Laboratory Result Diagrams 07/19/25 22:50 07/19/25 22:50 Laboratory Results 07/19/25 07/19/25 07/19/25 Range/Units 23:56 22:50 22:50 WBC (4.23-9.07) x10^3/uL RBC (4.63-6.08) x10^6/uL Hgb (13.7-17.5) g/dL Hct (40.1-51.0) % MCV (79.0-92.2) fL MCH (25.7-32.2) pg MCHC (32.3-36.5) g/dL RDW (11.6-14.4) % Plt Count (163-337) x10^3/uL MPV (9.4-12.4) fL Gran % (34.0-67.9) % Immature Gran % (Auto) (0.001-0.429) % Nucleat RBC Rel Count (0.00-0.2) % Eos # (Auto) (0.04-0.54) x10^3/uL Immature Gran # (Auto) (0.001-0.031) x10^3u/L Absolute Lymphs (auto) (1.32-3.57) x10^3/uL Absolute Monos (auto) (0.30-0.82) x10^3/uL Absolute Nucleated RBC (0.00-0.012) x10^3u/L Lymphocytes % (21.8-53.1) % Monocytes % (5.3-12.2) % Eosinophils % (0.8-7.0) % Basophils % (0.2-1.2) % Absolute Granulocytes (1.78-5.38) x10^3/uL Basophils # (0.01-0.08) x10^3/uL Sodium 135 (135-145) mmol/L Potassium 3.8 (3.5-5.1) mmol/L Chloride 85 L (98-107) mmol/L Carbon Dioxide 36 H (22-30) mmol/L Anion Gap 18.4 H (5-15) MEQ/L BUN 60 H (9-20) mg/dL Creatinine 1.74 H (0.66-1.25) mg/dL Estimated GFR 40.4 ML/MIN Glucose 146 H (74-106) mg/dL POC Glucometer (74 to 106) mg/dL Lactic Acid 4.1 H (0.4-2.0) Calcium 9.8 (8.4-10.2) mg/dL Magnesium 1.9 (1.6-2.3) mg/dL Total Bilirubin 0.40 (0.2-1.3) mg/dL AST 34 (17-59) U/L ALT 32 (0-50) U/L Alkaline Phosphatase 83 (38-126) U/L Troponin I 0.040 H* (0.000-0.033) ng/mL Serum Total Protein 6.4 (6.3-8.2) g/dL Albumin 4.1 (3.5-5.0) g/dL 07/19/25 07/19/25 07/19/25 Range/Units 22:50 22:45 22:45 WBC 17.3 H (4.23-9.07) x10^3/uL RBC 3.06 L (4.63-6.08) x10^6/uL Hgb 9.5 L (13.7-17.5) g/dL Hct 31.2 L (40.1-51.0) % MCV 102.0 H (79.0-92.2) fL MCH 31.0 (25.7-32.2) pg MCHC 30.4 L (32.3-36.5) g/dL RDW 13.8 (11.6-14.4) % Plt Count 301 (163-337) x10^3/uL MPV 8.5 L (9.4-12.4) fL Gran % 77.8 H (34.0-67.9) % Immature Gran % (Auto) 4.2 H (0.001-0.429) % Nucleat RBC Rel Count 0.5 H (0.00-0.2) % Eos # (Auto) 0.08 (0.04-0.54) x10^3/uL Immature Gran # (Auto) 0.72 H (0.001-0.031) x10^3u/L Absolute Lymphs (auto) 1.37 (1.32-3.57) x10^3/uL Absolute Monos (auto) 1.60 H (0.30-0.82) x10^3/uL Absolute Nucleated RBC 0.08 H (0.00-0.012) x10^3u/L Lymphocytes % 7.9 L (21.8-53.1) % Monocytes % 9.3 (5.3-12.2) % Eosinophils % 0.5 L (0.8-7.0) % Basophils % 0.3 (0.2-1.2) % Absolute Granulocytes 13.43 H (1.78-5.38) x10^3/uL Basophils # 0.05 (0.01-0.08) x10^3/uL Sodium (135-145) mmol/L Potassium (3.5-5.1) mmol/L Chloride (98-107) mmol/L Carbon Dioxide (22-30) mmol/L Anion Gap (5-15) MEQ/L BUN (9-20) mg/dL Creatinine (0.66-1.25) mg/dL Estimated GFR ML/MIN Glucose (74-106) mg/dL POC Glucometer 163 H (74 to 106) mg/dL Lactic Acid 7.3 H (0.4-2.0) Calcium (8.4-10.2) mg/dL Magnesium (1.6-2.3) mg/dL Total Bilirubin (0.2-1.3) mg/dL AST (17-59) U/L ALT (0-50) U/L Alkaline Phosphatase (38-126) U/L Troponin I (0.000-0.033) ng/mL Serum Total Protein (6.3-8.2) g/dL Albumin (3.5-5.0) g/dL - Progress Progress Note: 07/20/25 00:00 Initial blood pressure 83/50, He went to x-ray they were unable to obtain x-rays as when they laid the patient down he became hypotensive and seemed to pass out and had seizure-like activity, he immediately awoke and after about 2 to 3 seconds, the states that he normally never lays completely flat due to his severe COPD, he received approximately 500 cc of IV fluid and blood pressure is now 110/60, His back pain is resolved, his lactic was 7.3, white count 17,000, blood cultures were obtained, he was given Rocephin 1 g IV piggyback 07/20/25 00:50 back pain resolved, BP 110/60, consult to Hospitalist; OBS - Departure Departure Disposition: Observation Clinical Impression: BRADEN (acute kidney injury) Sepsis Qualifiers: Sepsis acute organ dysfunction status: with acute organ dysfunction Severe sepsis shock status: with septic shock Condition: Stable Critical Care Time: Yes Critical Care Time(excluding separately billable procedures): Critical 30-74 mins Referrals: CHIOMA HANNAH MD [Primary Care Provider, [facility]] - Follow up/PCP as directed
[2025-07-19 22:57] LABS: BASOPHIL % 0.3 % (0.2-1.2); Basophil (Absolute #) 0.05 x10^3/uL (0.01-0.08); Eosinophil (Absolute #) 0.08 x10^3/uL (0.04-0.54); Hematocrit 31.2 % (40.1-51.0); Hemoglobin 9.5 g/dL (13.7-17.5); IMMATURE GRAN # 0.72 x10^3u/L (0.001-0.031); IMMATURE GRAN % 4.2 % (0.001-0.429); Lymphocyte (Absolute #) 1.37 x10^3/uL (1.32-3.57); Mean Corpuscular Hemoglobin 31.0 pg (25.7-32.2); Mean Corpuscular Hgb Concent. 30.4 g/dL (32.3-36.5); Monocyte (Absolute #) 1.60 x10^3/uL (0.30-0.82); NUCLEATED RBC # 0.08 x10^3u/L (0.00-0.012); NUCLEATED RBC % 0.5 % (0.00-0.2); Platelet Count 301 x10^3/uL (163-337); Red Blood Count 3.06 x10^6/uL (4.63-6.08); White Blood Count 17.3 x10^3/uL (4.23-9.07)
[2025-07-19 23:10] LABS: Calcium 9.8 mg/dL (8.4-10.2); Carbon Dioxide 36.0 mmol/L (22-30); Creatinine 1 1.74 mg/dL (0.66-1.25); EST GLOMERULAR FILTRATION RATE 40.4 ML/MIN; Glucose 146.0 mg/dL (74-106); Potassium 3.8 mmol/L (3.5-5.1); SGOT/AST 34.0 U/L (17-59); SGPT/ALT 32.0 U/L (0-50); Total Protein 6.4 g/dL (6.3-8.2)
[2025-07-19] MEDS: PERCOCET TABLET 5/325MG PO ONE (23:50)
[2025-07-19] MEDS ORDERED: ROCEPHIN 1 GM / 100 ML NaCl 1 GM/100 ML IVPB IV ONE (23:52)
[2025-07-19] MEDS: ROCEPHIN 1 GM / 100 ML NaCl 1 GM/100 ML IVPB IV ONE (23:54)
--- NOTE | 2025-07-20 00:43 | PCM.HP ---
History of Present Illness - Chief Complaint Chief Complaint: Back pain History of Present Illness: is a 75 year old male with past medical history of COPD on 6 L nasal cannula, congenital heart defect, valve replacement, hypertension, hyperlipidemia [id number] type diabetes mellitus presented to the ED complaining of mid lower back pain. Patient denied having any recent falls or injuries causing his back pain. He reports that his pain started in the evening after he sat on the toilet. It was 10/10 pain, sharp, non-radiating, and he needed assistance from a neighbor to stand up. He denies fever, chills, cough, chest pain, shortness of breath, abdominal pain, nausea, vomiting, diarrhea, melena/rectal bleeding, dysuria, urinary frequency or urgency. He does endorse constipation and last bowel movement was 3 days ago which is typical for him. He was noted to be hypotensive in the ED requiring IV fluid hydration. He reportedly lost consciousness for a few seconds while in the radiology department. He regained consciousness after being repositioned. Blood pressure has improved with IV fluids. Patient reports his back pain resolved on its own despite not being given any pain medication. Lab workup was notable for elevated lactic acid 7.3 which has decreased to 4.1 with IV fluids, elevated white blood cell count of 17,000 (patient is noted to be on prednisone daily). No identified source of infection at this time. He was empirically treated with ceftriaxone in the ED. His labs are also notable for elevated creatinine compared to baseline (which is around 1.06) and mildly elevated troponin (patient does not have chest pain). Hemoglobin is noted to be chronically low and this is stable. . - Review of Systems Constitutional: No Symptoms Eyes: No Symptoms Ears, Nose, & Throat: No Symptoms Respiratory: No Symptoms Cardiac: No Symptoms Abdominal/Gastrointestinal: Constipation Genitourinary Symptoms: No Symptoms Musculoskeletal: Back Pain Skin: No Symptoms Neurological: No Symptoms Psychological: No Symptoms Endocrine: No Symptoms Hematologic/Lymphatic: No Symptoms Immunological/Allergic: No Symptoms All Other Systems: Reviewed and Negative Medications & Allergies Home Medications: Home Medication List Amitriptyline HCl 25 mg [Amitriptyline 25 mg Tablet] 25 mg PO HS 12/09/24 [History Confirmed 07/19/25] Atorvastatin Calcium 80 mg PO HS 12/09/24 [History Confirmed 07/19/25] Fluticasone Propionate [Flonase NASAL] 50 mcg INTRANASAL DAILY 12/09/24 [History Confirmed 07/19/25] Furosemide 40 mg [Lasix 40 MG] 40 mg PO DAILY 12/09/24 [History Confirmed 07/19/25] Potassium Chloride 10 meq PO DAILY 12/09/24 [History Confirmed 07/19/25] Sotalol HCl 80 mg [Betapace 80 MG] 80 mg PO BID 12/09/24 [History Confirmed 07/19/25] Ferrous Sulfate 325 mg [Feosol 325 mg] 325 mg PO DAILY 30 Days #30 tablet 12/11/24 [Rx Confirmed 07/19/25] levalbuterol HCl [Xopenex 1.25 MG/0.5 ML UD NEBULE] 1.25 mg IH Q4H PRN PRN 12/11/24 [Rx Confirmed 07/19/25] Insulin Degludec [Tresiba Flextouch U-200] 30 unit SQ HS 07/19/25 [History Confirmed 07/19/25] Ipratropium/Albuterol Sulfate [Iprat-Albut 0.5-3(2.5) mg/3 ml] 3 ml IH Q4H 07/19/25 [History Confirmed 07/19/25] Metformin HCl 500 mg [Glucophage 500 MG] 500 mg PO DAILY 07/19/25 [History Confirmed 07/19/25] Prednisone 20 mg [Deltasone 20 mg] 20 mg PO DAILY 07/19/25 [History Confirmed 07/19/25] Allergies/Adverse Reactions: Allergies Allergy/AdvReac Type Severity Reaction Status Date / Time No Known Drug Allergies Allergy Verified 07/19/25 22:12 - Past Medical History Past Medical History: Yes Neurological History: No Pertinent History ENT History: No Pertinent History Cardiac History: Arrhythmia, Congenital Heart Disease, Coronary Artery Disease, High Cholesterol, Hypertension Respiratory History: COPD Endocrine Medical History: Diabetes Type II Musculoskelatal History: Arthritis GI Medical History: No Pertinent History History: No Pertinent History Pyscho-Social History: No Pertinent History Male Reproductive Disorders: No Pertinent History Comment: SEE ABOVE LISTED PMH - Past Surgical History Past Surgical History: Yes Neuro Surgical History: No Pertinent History Cardiac History: Valve Replacement Respiratory Surgery: No Pertinent History GI Surgical History: No Pertinent History Genitourinary Surgical Hx: No Pertinent History Musculskeletal Surgical Hx: No Pertinent History Male Surgical History: No Pertinent History Other Surgical History: open heart surgery at age 7 Significant Family History: heart disease, cancer, diabetes - Social History Smoking Status: Former smoker Exposure to second hand smoke: Yes Alcohol: None Drug Use: none - Social Determinants of Health Will the patient participate in the screening: Yes Do you worry about a steady place to live?: No Do you have any problems with any of the following?: No known problems In the past 12 months,have you had to go without utilities?: No Have you or anyone in your house had to go without enough: No Transportation Issues: No Has anyone in your support network made you feel unsafe?: No Does the patient want assistance with any of the above?: No - Physical Exam Vital Signs: Vital Signs - 24 hr Temp Pulse Resp BP BP Pulse Ox 07/20/25 00:01 83 16 94/62 100 07/19/25 23:30 94 H 14 102/69 100 07/19/25 23:13 79 20 113/68 95 07/19/25 23:12 88 20 95 07/19/25 23:11 92 H 19 96 07/19/25 22:41 98 H 15 83/45 93 L 07/19/25 22:13 95.8 F 82 24 70/50 92 L General Appearance: no apparent distress Neurologic Exam: alert, oriented x 3, dry house worker II-XII nml as tested, normal mood/affect, sensation nml Eye Exam: PERRL/EOMI, eyes nml inspection Ears, Nose, Throat Exam: moist mucous membranes Neck Exam: normal inspection, non-tender Respiratory Exam: normal breath sounds, lungs clear Cardiovascular Exam: regular rate/rhythm, normal heart sounds Gastrointestinal/Abdomen Exam: soft, normal bowel sounds Back Exam: normal inspection, normal range of motion Extremity Exam: normal inspection Skin Exam: normal color, warm, dry Results - Labs Lab/Micro Results: Lab Results-Last 24 Hours 07/19/25 07/19/25 07/19/25 Range/Units 22:45 22:45 22:50 WBC 17.3 H (4.23-9.07) x10^3/uL RBC 3.06 L (4.63-6.08) x10^6/uL Hgb 9.5 L (13.7-17.5) g/dL Hct 31.2 L (40.1-51.0) % MCV 102.0 H (79.0-92.2) fL MCH 31.0 (25.7-32.2) pg MCHC 30.4 L (32.3-36.5) g/dL RDW 13.8 (11.6-14.4) % Plt Count 301 (163-337) x10^3/uL MPV 8.5 L (9.4-12.4) fL Gran % 77.8 H (34.0-67.9) % Immature Gran % (Auto) 4.2 H (0.001-0.429) % Nucleat RBC Rel Count 0.5 H (0.00-0.2) % Eos # (Auto) 0.08 (0.04-0.54) x10^3/uL Immature Gran # (Auto) 0.72 H (0.001-0.031) x10^3u/L Absolute Lymphs (auto) 1.37 (1.32-3.57) x10^3/uL Absolute Monos (auto) 1.60 H (0.30-0.82) x10^3/uL Absolute Nucleated RBC 0.08 H (0.00-0.012) x10^3u/L Lymphocytes % 7.9 L (21.8-53.1) % Monocytes % 9.3 (5.3-12.2) % Eosinophils % 0.5 L (0.8-7.0) % Basophils % 0.3 (0.2-1.2) % Absolute Granulocytes 13.43 H (1.78-5.38) x10^3/uL Basophils # 0.05 (0.01-0.08) x10^3/uL Sodium (135-145) mmol/L Potassium (3.5-5.1) mmol/L Chloride (98-107) mmol/L Carbon Dioxide (22-30) mmol/L Anion Gap (5-15) MEQ/L BUN (9-20) mg/dL Creatinine (0.66-1.25) mg/dL Estimated GFR ML/MIN Glucose (74-106) mg/dL POC Glucometer 163 H (74 to 106) mg/dL Lactic Acid 7.3 H (0.4-2.0) Calcium (8.4-10.2) mg/dL Magnesium (1.6-2.3) mg/dL Total Bilirubin (0.2-1.3) mg/dL AST (17-59) U/L ALT (0-50) U/L Alkaline Phosphatase (38-126) U/L Troponin I (0.000-0.033) ng/mL Serum Total Protein (6.3-8.2) g/dL Albumin (3.5-5.0) g/dL 07/19/25 07/19/25 07/19/25 Range/Units 22:50 22:50 23:56 WBC (4.23-9.07) x10^3/uL RBC (4.63-6.08) x10^6/uL Hgb (13.7-17.5) g/dL Hct (40.1-51.0) % MCV (79.0-92.2) fL MCH (25.7-32.2) pg MCHC (32.3-36.5) g/dL RDW (11.6-14.4) % Plt Count (163-337) x10^3/uL MPV (9.4-12.4) fL Gran % (34.0-67.9) % Immature Gran % (Auto) (0.001-0.429) % Nucleat RBC Rel Count (0.00-0.2) % Eos # (Auto) (0.04-0.54) x10^3/uL Immature Gran # (Auto) (0.001-0.031) x10^3u/L Absolute Lymphs (auto) (1.32-3.57) x10^3/uL Absolute Monos (auto) (0.30-0.82) x10^3/uL Absolute Nucleated RBC (0.00-0.012) x10^3u/L Lymphocytes % (21.8-53.1) % Monocytes % (5.3-12.2) % Eosinophils % (0.8-7.0) % Basophils % (0.2-1.2) % Absolute Granulocytes (1.78-5.38) x10^3/uL Basophils # (0.01-0.08) x10^3/uL Sodium 135 (135-145) mmol/L Potassium 3.8 (3.5-5.1) mmol/L Chloride 85 L (98-107) mmol/L Carbon Dioxide 36 H (22-30) mmol/L Anion Gap 18.4 H (5-15) MEQ/L BUN 60 H (9-20) mg/dL Creatinine 1.74 H (0.66-1.25) mg/dL Estimated GFR 40.4 ML/MIN Glucose 146 H (74-106) mg/dL POC Glucometer (74 to 106) mg/dL Lactic Acid 4.1 H (0.4-2.0) Calcium 9.8 (8.4-10.2) mg/dL Magnesium 1.9 (1.6-2.3) mg/dL Total Bilirubin 0.40 (0.2-1.3) mg/dL AST 34 (17-59) U/L ALT 32 (0-50) U/L Alkaline Phosphatase 83 (38-126) U/L Troponin I 0.040 H* (0.000-0.033) ng/mL Serum Total Protein 6.4 (6.3-8.2) g/dL Albumin 4.1 (3.5-5.0) g/dL - Radiology Impressions Radiology Exams & Impressions: Radiology Procedures Category Date Time Status CHEST 1 VIEW (PORTABLE) Stat Exams 07/19/25 22:39 Taken Assessment/Plan (1) BRADEN (acute kidney injury) Current Visit: Yes Status: Acute Assessment & Plan: Secondary to hypovolemia IV fluid hydration Monitor I&Os Avoid nephrotoxic medications Code(s): N17.9 - ACUTE KIDNEY FAILURE, UNSPECIFIED (2) Leukocytosis Current Visit: Yes Status: Acute Qualifiers: Leukocytosis type: unspecified Qualified Code(s): D72.829 - Elevated white blood cell count, unspecified Assessment & Plan: Current steroid use likely contributing to increased WBC count No evidence of infection and has been afebrile Monitor off antibiotic Code(s): D72.829 - ELEVATED WHITE BLOOD CELL COUNT, UNSPECIFIED (3) Lower back pain Current Visit: Yes Status: Acute Qualifiers: Chronicity: acute Back pain laterality: midline Sciatica presence: without sciatica Qualified Code(s): M54.50 - Low back pain, unspecified Assessment & Plan: Unclear etiology Resolved without pain medication Code(s): M54.50 - LOW BACK PAIN, UNSPECIFIED (4) Elevated troponin Current Visit: Yes Status: Acute Assessment & Plan: Monitor on telemetry Trend troponin No complaints of chest pain Code(s): R79.89 - OTHER SPECIFIED ABNORMAL FINDINGS OF BLOOD CHEMISTRY (5) Chronic respiratory failure with hypoxia Current Visit: Yes Status: Chronic Assessment & Plan: Continue home oxygen (6) Chronic anemia Current Visit: Yes Status: Chronic Assessment & Plan: Hemoglobin stable near baseline Code(s): D64.9 - ANEMIA, UNSPECIFIED (7) Essential (primary) hypertension Current Visit: Yes Status: Chronic Assessment & Plan: Hold oral antihypertensives due to hypotension Code(s): I10 - ESSENTIAL (PRIMARY) HYPERTENSION (8) Hyperlipidemia Current Visit: Yes Status: Chronic Qualifiers: Hyperlipidemia type: unspecified Qualified Code(s): E78.5 - Hyperlipidemia, unspecified Assessment & Plan: Continue statin Code(s): E78.5 - HYPERLIPIDEMIA, UNSPECIFIED (9) Syncope Current Visit: Yes Status: Acute Code(s): R55 - SYNCOPE AND COLLAPSE (10) Type 2 diabetes mellitus Current Visit: Yes Status: Chronic Qualifiers: Diabetes mellitus supervisor intermediates insulin use: with supervisor intermediates use Diabetes mellitus complication status: with other specified complication Qualified Code(s): E11.69 - Type 2 diabetes mellitus with other specified complication; Z79.4 - supervisor intermediates (current) use of insulin Assessment & Plan: Resume home insulin regimen ISS with accuchecks (11) COPD (chronic obstructive pulmonary disease) Current Visit: No Status: Chronic Qualifiers: Chronic bronchitis type: unspecified Assessment & Plan: No acute exacerbation Continue bronchodilators and prednisone DVT PPx - Heparin Full Code Cardiac/diabetic diet Patient unable to confirm any home medications - RN to call PCP office in AM and will reconcile and resume thereafter Telemedicine Encounter - Telemedicine Encounter Telemedicine Encounter: "The entirety of this encounter was performed via Telemedicine" This visit was performed using real-time audio and video connection between my location and thepatients locationwith the assistance of a surrogateat the patients location. Written or verbal consent was obtained from the patient/guardian to perform this visit using[facility] Pharmaceuticalonoustelemedicine technology. Any patient questions regarding the telemedicine interaction were answered.
[2025-07-20 01:00] LABS: Glucose, Urine Negative (Negative); Protein,Urine Dip 30 (Negative); RBC 0-2 /HPF (0-5)
[2025-07-20 01:01] LABS: Slide Review 1 YES
[2025-07-20] MEDS ORDERED: DUONEB 0.5-3 MG/3 ml Neb IH ONE (01:12)
[2025-07-20] MEDS: DUONEB 0.5-3 MG/3 ml Neb IH ONE (01:14)
[2025-07-20] MEDS ORDERED: EPINEPHRINE ABBOJECT 1 MG/10 ML IV ONE (01:18)
[2025-07-20] MEDS ORDERED: DUONEB 0.5-3 MG/3 ml Neb IH PRN (01:32)
[2025-07-20] MEDS ORDERED: VENTOLIN COMMON CANISTER IH PRN (01:33)
[2025-07-20] MEDS ORDERED: TYLENOL 325 MG PO PRN (04:00)
[2025-07-20 05:15] LABS: BASOPHIL % 0.4 % (0.2-1.2); Basophil (Absolute #) 0.05 x10^3/uL (0.01-0.08); Eosinophil (Absolute #) 0.15 x10^3/uL (0.04-0.54); Hematocrit 24.7 % (40.1-51.0); Hemoglobin 7.6 g/dL (13.7-17.5); IMMATURE GRAN # 0.25 x10^3u/L (0.001-0.031); IMMATURE GRAN % 2.0 % (0.001-0.429); Lymphocyte (Absolute #) 1.58 x10^3/uL (1.32-3.57); Mean Corpuscular Hemoglobin 30.3 pg (25.7-32.2); Mean Corpuscular Hgb Concent. 30.8 g/dL (32.3-36.5); Monocyte (Absolute #) 1.13 x10^3/uL (0.30-0.82); NUCLEATED RBC # 0.04 x10^3u/L (0.00-0.012); NUCLEATED RBC % 0.3 % (0.00-0.2); Platelet Count 248 x10^3/uL (163-337); Red Blood Count 2.51 x10^6/uL (4.63-6.08); White Blood Count 12.5 x10^3/uL (4.23-9.07)
[2025-07-20 05:54] LABS: Calcium 9.1 mg/dL (8.4-10.2); Carbon Dioxide 37 mmol/L (22-30); Creatinine 1 1.39 mg/dL (0.66-1.25); EST GLOMERULAR FILTRATION RATE 52.9 ML/MIN; Glucose 91 mg/dL (74-106); Potassium 3.2 mmol/L (3.5-5.1); SGOT/AST 27 U/L (17-59); SGPT/ALT 22 U/L (0-50); Total Protein 5.2 g/dL (6.3-8.2)
[2025-07-20] MEDS: Klor Con PO SCH (08:16)
--- NOTE | 2025-07-20 08:55 | XRAY ---
Indication: Hypotension. Comparison: December 11, 2024 Portable chest unchanged again demonstrating COPD and mild bibasilar subsegmental atelectasis/scarring. Heart not enlarged again with cardiac valve replacement. Bony thorax intact again with osteopenia, degenerative changes, and scoliosis. No new/acute findings.
[2025-07-20] MEDS: HEPARIN 5000 UNITS/0.5 ML (HIGH RISK MED) SQ SCH (09:45)
--- NOTE | 2025-07-20 10:07 | XRAY ---
Indication: Low back pain. Multiple contiguous axial images obtained through lumbar spine. Sagittal and coronal reformatted images obtained. Comparison: None Osseous structures demineralized consistent with patient's age. Minimal broad-based disc bulge L2-S1 levels. Also L5-S1 degenerative vacuum disc phenomena. No obvious large disc herniation or spinal canal stenosis. Mild bilateral L3-S1 degenerative facet hypertrophy. Sagittal and coronal reformatted images demonstrates normal lumbar lordosis and mild levoscoliosis centered at L3. Minimal L3-L4 and L5-S1 disc space narrowing. No acute compression fracture or subluxation. Visualized noncontrasted soft tissues demonstrates mild scattered vascular calcifications and incompletely visualized sigmoid diverticulosis. Impression: 1. Chronic findings including osteopenia, multilevel degenerative spondylosis, levoscoliosis, arteriosclerotic disease, and sigmoid diverticulosis. 2. Remaining CT lumbar spine without contrast exam is negative.
[2025-07-20] MEDS: ULTRAM 50 MG PO PRN (10:12)
[2025-07-20] MEDS: Lidoderm Patch 5% TOP SCH (15:22)
[2025-07-20] MEDS: NORCO 5/325 MG PO PRN (15:26)
[2025-07-20] MEDS ORDERED: Xopenex 1.25 MG/0.5 ML UD NEBULE IH PRN (16:16)
[2025-07-20] MEDS: FEOSOL 325 MG PO SCH (16:43)
[2025-07-20] MEDS: DELTASONE 20 MG PO SCH (16:43)
[2025-07-20] MEDS: Sodium Chloride 0.9% W/ 20 mEq KCl/LITER 1,000 ML IV SCH (16:45)
[2025-07-20] MEDS ORDERED: THEOPHYLLINE ER 24HR PO SCH (17:00)
[2025-07-20] MEDS ORDERED: DUONEB 0.5-3 MG/3 ml Neb IH SCH (19:00)
[2025-07-20] MEDS ORDERED: NON-FORMULARY ITEM (Atorvastatin Calcium [Atorvastatin Calcium] 80 MG Tablet) PO SCH (22:00)
[2025-07-20] MEDS: ZOCOR 20MG PO SCH (22:41)
[2025-07-20] MEDS: AMITRIPTYLINE 25 MG TABLET PO SCH (22:41)
[2025-07-20] MEDS: HUMALOG SQ PRN (22:41)
[2025-07-20] MEDS: Betapace 80 MG PO SCH (22:41)
[2025-07-20] MEDS: MORPHINE SULFATE 2 MG INJ IV ONE (23:32)
--- NOTE | 2025-07-21 04:58 | TM.IN ---
Tele-Medicine Incident Note - Incident Note Tel-Medicine Incident Note: 07/21/25 0458 Patient complaining of severe lower back pain not alleviated by [place]. Was given IV morphine 2 mg. Patient also complaining of chest pain that was alleviated by morphine - EKG and troponin ordered. Telemedicine Encounter - Telemedicine Encounter Telemedicine Encounter: "The entirety of this encounter was performed via Telemedicine" This visit was performed using real-time audio and video connection between my location and thepatients locationwith the assistance of a surrogateat the patients location. Written or verbal consent was obtained from the patient/guardian to perform this visit usingnchrWHATTtelemedicine technology. Any patient questions regarding the telemedicine interaction were answered.
[2025-07-21 05:40] LABS: BASOPHIL % 0.2 % (0.2-1.2); Basophil (Absolute #) 0.03 x10^3/uL (0.01-0.08); Eosinophil (Absolute #) 0.02 x10^3/uL (0.04-0.54); Hematocrit 22.8 % (40.1-51.0); IMMATURE GRAN # 0.39 x10^3u/L (0.001-0.031); IMMATURE GRAN % 3.1 % (0.001-0.429); Lymphocyte (Absolute #) 0.68 x10^3/uL (1.32-3.57); Mean Corpuscular Hemoglobin 30.9 pg (25.7-32.2); Mean Corpuscular Hgb Concent. 29.4 g/dL (32.3-36.5); Monocyte (Absolute #) 0.88 x10^3/uL (0.30-0.82); NUCLEATED RBC # 0.30 x10^3u/L (0.00-0.012); NUCLEATED RBC % 2.4 % (0.00-0.2); Platelet Count 244 x10^3/uL (163-337); Red Blood Count 2.17 x10^6/uL (4.63-6.08); White Blood Count 12.7 x10^3/uL (4.23-9.07)
[2025-07-21 06:00] LABS: Hemoglobin 6.7 g/dL (13.7-17.5)
[2025-07-21 06:01] LABS: Calcium 10.1 mg/dL (8.4-10.2); Carbon Dioxide 37 mmol/L (22-30); Creatinine 1 1.08 mg/dL (0.66-1.25); EST GLOMERULAR FILTRATION RATE 71.6 ML/MIN; Glucose 183 mg/dL (74-106); SGOT/AST 25 U/L (17-59); SGPT/ALT 22 U/L (0-50); Total Protein 5.0 g/dL (6.3-8.2)
[2025-07-21 06:18] LABS: Potassium 6.0 mmol/L (3.5-5.1)
[2025-07-21] MEDS: HUMULIN R SQ ONE (06:41)
[2025-07-21] MEDS: D50W 50 ml Abboject IV ONE (06:41)
[2025-07-21] MEDS ORDERED: Calcium Gluconate 10% 1000 MG IV ONE (07:25)
[2025-07-21 07:30] LABS: Hematocrit 23.0 % (40.1-51.0); Mean Corpuscular Hemoglobin 31.4 pg (25.7-32.2); Mean Corpuscular Hgb Concent. 28.3 g/dL (32.3-36.5); Platelet Count 218 x10^3/uL (163-337); Red Blood Count 2.07 x10^6/uL (4.63-6.08); White Blood Count 14.8 x10^3/uL (4.23-9.07)
[2025-07-21 07:33] LABS: Hemoglobin 6.5 g/dL (13.7-17.5)
[2025-07-21 07:42] LABS: Calcium 9.9 mg/dL (8.4-10.2); Carbon Dioxide 28 mmol/L (22-30); Creatinine 1 1.26 mg/dL (0.66-1.25); EST GLOMERULAR FILTRATION RATE 59.5 ML/MIN; Glucose 363 mg/dL (74-106); SGOT/AST 188 U/L (17-59); SGPT/ALT 157 U/L (0-50); Total Protein 5.1 g/dL (6.3-8.2)
[2025-07-21 07:44] LABS: INR 0.99 (0.8-3.0); PROTIME 11.1 SECONDS (9.4-12.5); PTT < 20.0 SECONDS (25.1-36.5)
[2025-07-21] MEDS: Versed 50 MG/ 10 Ml MDV*** 50 MG in Sodium Chloride 0.9% 250 ML 240 ML IV PRN (07:44)
[2025-07-21 07:45] LABS: Potassium 5.9 mmol/L (3.5-5.1)
[2025-07-21] MEDS: NOREPINEPHRINE 8 MG/250 ML-D5W 8 MG/250 ML PLAST..BAG IV PRN (07:59)
[2025-07-21] MEDS ORDERED: EPINEPHRINE ABBOJECT 1 MG/10 ML IV ONE (08:00)
[2025-07-21 08:10] LABS: BAND 2 % (0.0-2.0); Total Cells Counted 100
--- NOTE | 2025-07-21 08:10 | XRAY ---
Indication: Code. Endotracheal tube placement. Comparison: July 19, 2025 Portable chest demonstrates new endotracheal tube tip 4 cm above deb. Lungs limited as right lung base not completely included. Visualized right lung less inflated with now diffuse hazy interstitial opacities. Grossly stable COPD and right base subsegmental atelectasis/scarring. Heart not enlarged.
[2025-07-21 08:11] LABS: Macrocytosis 2+
[2025-07-21] MEDS ORDERED: Zemuron 100 MG/10 ML IV ONE ×2 (08:15→09:15)
[2025-07-21] MEDS ORDERED: VERSED 5 MG/5 ML IV ONE (08:15)
[2025-07-21 08:16] LABS: A-aADO2 395; ARTERIAL BLD GAS O2 SATURATION 100.0 % (95-100); ARTERIAL BLOOD GAS BASE EXCESS -3.4 (-2.0-2.0); ARTERIAL BLOOD GAS FIO2 100 %; ARTERIAL BLOOD GAS PO2 218 mmHg (75-100); ARTERIAL BLOOD GAS TEMPERATURE 37.0 C; HCO3- 26.0 (22-28); HGB O2 SAT 97.8 g/dF (94-100); Methhemoglobin 0.7 % (1.4-1.5); paO2 pAO1 0.36
[2025-07-21 08:17] LABS: ARTERIAL BLOOD GAS PCO2 80 mmHg (35-45)
[2025-07-21 08:18] LABS: ABG HEMOGLOBIN 6.9; ABG POTASSIUM 6.1 (3.5-5.1); ABG SITE LEFT FEMORAL
[2025-07-21 08:20] LABS: ABO TYPING A; RH TYPING NEGATIVE
[2025-07-21 08:21] LABS: CROSS MATCH (PRBC) COMPATIBLE (COMPATIBLE)
[2025-07-21 08:23] LABS: CROSS MATCH (PRBC) COMPATIBLE (COMPATIBLE)
[2025-07-21] MEDS ORDERED: VERSED 5 MG/5 ML IV PRN (08:42)
[2025-07-21 08:57] LABS: Hematocrit 20.3 % (40.1-51.0); Mean Corpuscular Hemoglobin 31.3 pg (25.7-32.2); Mean Corpuscular Hgb Concent. 29.6 g/dL (32.3-36.5); Platelet Count 218 x10^3/uL (163-337); Red Blood Count 1.92 x10^6/uL (4.63-6.08); White Blood Count 15.9 x10^3/uL (4.23-9.07)
[2025-07-21 09:01] LABS: A-aADO2 -139; ABG POTASSIUM 5.6 (3.5-5.1); ARTERIAL BLD GAS O2 SATURATION 100.0 % (95-100); ARTERIAL BLOOD GAS BASE EXCESS -0.2 (-2.0-2.0); ARTERIAL BLOOD GAS FIO2 21 %; ARTERIAL BLOOD GAS PCO2 46 mmHg (35-45); ARTERIAL BLOOD GAS PO2 231 mmHg (75-100); ARTERIAL BLOOD GAS TEMPERATURE 37.0 C; HCO3- 25.4 (22-28); HGB O2 SAT 95.1 g/dF (94-100); Methhemoglobin 0.7 % (1.4-1.5); paO2 pAO1 2.51
[2025-07-21 09:02] LABS: ABG HEMOGLOBIN 6.4; ABG SITE AL
[2025-07-21 09:10] LABS: Calcium 8.6 mg/dL (8.4-10.2); Carbon Dioxide 28 mmol/L (22-30); Creatinine 1 1.19 mg/dL (0.66-1.25); EST GLOMERULAR FILTRATION RATE 63.7 ML/MIN; Glucose 269 mg/dL (74-106); Potassium 5.4 mmol/L (3.5-5.1); SGOT/AST 182 U/L (17-59); SGPT/ALT 171 U/L (0-50); Total Protein 4.3 g/dL (6.3-8.2)
[2025-07-21 09:14] LABS: Hemoglobin 6.0 g/dL (13.7-17.5); INR 1.02 (0.8-3.0); PROTIME 11.4 SECONDS (9.4-12.5); PTT 20.2 SECONDS (25.1-36.5)
[2025-07-21 09:17] LABS: CROSS MATCH (PRBC) COMPATIBLE (COMPATIBLE)
[2025-07-21] MEDS ORDERED: NON-FORMULARY ITEM (Theophylline Anhydrous [Theophylline Er] 300 MG Tab.Er.12h) PO SCH (10:00)
[2025-07-21] MEDS ORDERED: NON-FORMULARY ITEM (Potassium Chloride [Potassium Chloride] 10 MEQ Capsule.Er) PO SCH (10:00)
[2025-07-21] MEDS ORDERED: Sodium Chloride 3 ML UD NEBULES IH ONE (10:13)
[2025-07-21] MEDS: SUBLIMAZE 100 MCG/2 ML IV PRN (10:25)
[2025-07-21] MEDS: SUBLIMAZE 1000 Mcg/ 20 Ml*** 1,500 MCG in Sodium Chloride 0.9% 150 ML 120 ML IV SCH (10:34)
[2025-07-21] MEDS: SUBLIMAZE 100 MCG/2 ML IV ONE (10:35)
[2025-07-21] MEDS ORDERED: Lasix 40 MG/4 ML ONE (10:37)
--- NOTE | 2025-07-21 10:44 | XRAY ---
Indication: Dyspnea. Pulmonary embolus. Multiple contiguous axial images obtained through the chest using 100 cc Isovue 370 contrast and PE protocol. Comparison: None Good opacification pulmonary arteries to include lobar and segmental branches. Over mild beam artifact from patient's arms limits exam. No obvious pulmonary embolus. Heart is borderline enlarged with aortic valve replacement. Aorta is minimally arteriosclerotic without aneurysm/dissection. No pathologic mediastinal/hilar lymphadenopathy. Endotracheal tube tip approximately 3 cm above deb. Lungs demonstrates right lower lobe, predominantly posterior subsegmental atelectasis with tiny effusion. Elsewhere subtle hazy right upper lobe interstitial alveolar opacities, mild diffuse pulmonary emphysema with biapical subpleural cystic changes, and a few tiny right lung calcified granulomas. Left lung demonstrates mild fissure thickening. No pneumothorax. Bony thorax intact with osteopenia, minimal/mild degenerative changes throughout spine, and minimal dextroscoliosis. CTA abdomen/pelvis reported separately. Impression: 1. Pulmonary embolus evaluation limited by beam artifact from patient's arms. No obvious pulmonary embolus. 2. Predominantly right lower lobe atelectasis with tiny effusion. Rule out aspiration . 3. Hazy right upper lobe interstitial alveolar opacities, possible pneumonia/pneumonitis. 4. Endotracheal tube tip in good position. 5. Chronic findings including pulmonary emphysema, arteriosclerotic disease, chronic bony findings, and old granulomatous disease.
[2025-07-21] MEDS: Lasix 40 MG/4 ML IV ONE (10:45)
[2025-07-21 10:53] LABS: A-aADO2 250; ABG HEMOGLOBIN 7.7; ABG POTASSIUM 5.7 (3.5-5.1); ARTERIAL BLD GAS O2 SATURATION 99.7 % (95-100); ARTERIAL BLOOD GAS BASE EXCESS 3.2 (-2.0-2.0); ARTERIAL BLOOD GAS FIO2 100 %; ARTERIAL BLOOD GAS PCO2 53 mmHg (35-45); ARTERIAL BLOOD GAS PEEP 5.0 cmH2O; ARTERIAL BLOOD GAS PO2 397 mmHg (75-100); ARTERIAL BLOOD GAS TEMPERATURE 37.0 C; HCO3- 29.3 (22-28); HGB O2 SAT 98.6 g/dF (94-100); Methhemoglobin 0.5 % (1.4-1.5); paO2 pAO1 0.61
[2025-07-21 10:54] LABS: ABG SITE line
--- NOTE | 2025-07-21 11:06 | XRAY ---
Indication: Decreased hemoglobin. Conventional contrast-enhanced CTA abdomen/pelvis performed using 100 cc Isovue 370 contrast. 2D sagittal and coronal reformatted images obtained. Additional 3D reformatted images obtained using separate workstation. Comparison: None CT chest reported separately. Abdominal aorta is mildly arteriosclerotic without aneurysm/dissection. Widely patent branching celiac, superior mesenteric, and inferior mesenteric arteries. A single renal artery supplies each kidney. Minimal calcifications at origin left main renal artery without critical stenosis, obstruction, or poststenotic dilatation. Iliac arteries are also mildly arteriosclerotic bilaterally without critical stenosis, obstruction, or AV malformation. Stomach is right-sided, liver predominantly left upper quadrant, small spleen is in right upper quadrant, pancreas predominantly left-sided, and left-sided IVC favoring situs inversus. Noncontrasted stomach and bowel loops appear nonobstructed. Sigmoid diverticulosis without diverticulitis. Incidental 4 mm gallstone, small splenic splenules with tiny calcified granulomas, and near empty urinary bladder with Perez balloon catheter in Situ. No free fluid/air. Remaining liver, gallbladder, pancreas, spleen, adrenal glands, kidneys, and ureters are unremarkable. No pathologic retroperitoneal lymphadenopathy. Osseous structures intact with osteopenia, minimal/mild degenerative changes throughout spine, minimal levoscoliosis centered at L3, and mild degenerative changes both hips. Incidental small fatty bilateral inguinal hernias. Impression: 1. CTA abdomen/pelvis demonstrates mild scattered arteriosclerotic disease as detailed. Negative for critical stenosis, obstruction, or AV malformation. 2. 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 3. Chronic findings including sigmoid diverticulosis, tiny gallstone, chronic bony findings, fatty bilateral inguinal hernias, Perez balloon catheter in Situ, and old granulomatous disease.
[2025-07-21] MEDS: Nimbex 20MG/10 Ml Vial (HIGH RISK MED) IV STA (11:45)
[2025-07-21] MEDS: Nimbex 200MG/20 Ml MDV (HIGH RISK MED)** 200 MG in Dextrose 5%/Water IV Soln. 250 ML 18... IV PRN (12:18)
--- NOTE | 2025-07-21 12:31 | XRAY ---
Indication: Central line placement. Comparison: Taken earlier in the day. Portable chest demonstrates new right jugular central venous access catheter with tip projecting over proximal SVC. No pneumothorax. Remaining visualized chest included endotracheal tube unchanged.
[2025-07-21] MEDS: Flonase NASAL NS SCH (12:56)
[2025-07-21] MEDS: Klor Con PO SCH (12:57)
[2025-07-21 12:59] LABS: Glucose, Urine 100 mg/dL (Negative); Protein,Urine Dip 30 (Negative); WBC 0-2 /HPF (0-5)
[2025-07-21 13:51] VITALS: RESP 14; TEMP 96.1; O2SAT 100
--- NOTE | 2025-07-21 14:01 | PCM.DS ---
Discharge Summary Date of Admission: 07/21/25 07:09 Date of Discharge: 07/21/25 Admitting Physician: SMILEY MORELAND MD Primary Care Provider: CHIOMA HANNAH Allergies Allergies No Known Drug Allergies Allergy (Verified 07/19/25 22:12) Hospital Summary - Hospital Course Hospital Course: Mr. Pardo is a 75-year-old male with COPD on 6 L NC, congenital heart defect status-post valve replacement, hypertension, hyperlipidemia, and type 2 diabetes mellitus who presented to the ED on 07/20/25 with acute, severe lower back pain. The pain was abrupt, sharp, 10/10, beginning after sitting on the toilet. He denied trauma, fever, chest pain, or bleeding but reported constipation with last BM 3 days prior. In the ED, he was hypotensive but improved with IV fluids. He experienced a brief syncopal event in radiology but recovered quickly. His pain resolved spontaneously without medication. CT lumbar spine (07/20) showed chronic osteopenia, multilevel degenerative spondylosis, levoscoliosis, arteriosclerotic disease, and sigmoid diverticulosis, without acute fracture or compressive pathology. He remained stable the rest of 07/20. Mild troponin elevation noted without chest pain. One unit PRBC transfused. 07/21/25 Acute Events Prior to Code During the morning medication pass, the patient became increasingly confused and impulsive. He stood at the bedside, began urinating on the floor, and stated he could not control it. He was noted to be slightly confused, yelling in pain, and short of breath. On assessment, he rated his lower back pain as 10/10. Nursing attempted to administer Gustine 5/325, but the patient initially held tablets in his mouth and required repeated coaching to either swallow or spit out the medications. He eventually swallowed successfully. About 35 minutes later, he continued yelling out, reporting pain 9/10, with new complaints of worsening shortness of breath, chest pain, and diaphoresis. Hospitalist was called. STAT EKG, troponin, and morphine 2 mg IV were ordered. RT obtained EKG but quality was limited by artifact due to patient movement. Troponin was drawn, EKG was sent to hospitalist, and no new orders were issued at that time. The patient later appeared to be resting in bed with stable vital signs. Shortly after, potassium returned at 6.0. He had been receiving KCl in IV fluids, which were stopped. Insulin with D50 was given and a repeat EKG was ordered. Hemoglobin was again 6.7 with no source of bleeding identified. Plans included CTA chest/abdomen/pelvis (completed) and transfusion of 1 unit PRBCs. CTA abdomen/pelvis (07/21): Mild scattered arteriosclerotic disease, no critical stenosis or obstruction; reversed stomach/visceral orientation (situs inversus); sigmoid diverticulosis; tiny gallstone; fatty bilateral inguinal hernias; Perez catheter in situ; old granulomatous disease. CTA chest (07/21): Limited for PE, no obvious embolus; RLL atelectasis with tiny effusion (possible aspiration); hazy RUL opacities concerning for pneumonia/pneumonitis. 07/21/25 Code Event At 07:09, telemetry showed bradycardia (HR 32). The patient was unresponsive but initially had a weak pulse. By 07:10, no pulse was present, CPR was initiated, and code blue was activated. Pads were placed, compressions and BVM ventilation begun. ACLS interventions: Epinephrine 1 mg 2, sodium bicarbonate 1 amp, calcium gluconate 1 g, insulin/D50, magnesium sulfate 2 g. The patient was intubated with ETT at 07:19, OG tube placed, IV/IO access secured. 07:23: ROSC achieved sinus rhythm HR 89, BP 118/62, SpO2 100%. Post-ROSC EKG, chest x-ray, and labs obtained. Following stabilization, the patient was started on Versed (midazolam), fentanyl, and Nimbex (cisatracurium) drips for sedation, analgesia, and ventilator synchrony.Transferred on 07/21/25 to higher- level ICU care for ongoing postcardiac arrest management, mechanical ventilation, sedation/paralysis with Versed/fentanyl/Nimbex drips, BRADEN, hyperkalemia, anemia, lactic acidosis, and hemodynamic instability. I provided critical care services for Mr. Pardo due to life-threatening acute conditions including cardiac arrest with ROSC, acute hypoxic respiratory failure requiring intubation and mechanical ventilation, acute kidney injury with hyperkalemia, severe anemia, lactic acidosis, and hemodynamic instability. The patient required continuous evaluation and management of airway, breathing, circulation, and neurologic status. Interventions included ACLS during code event, ventilator management, initiation of sedation and paralytic infusions (Versed, fentanyl, Nimbex), electrolyte correction, transfusion management, hemodynamic monitoring, and coordination of transfer to higher-level ICU care. Total critical care time: 100 minutes, exclusive of separately billable procedures and excluding time spent on teaching or nonpatient care activities. - Vitals & Intake/Output Vital Signs: Vital Signs Temperature 96.1 F 07/21/25 10:36 Pulse Rate 70 07/21/25 12:18 Respiratory Rate 14 07/21/25 10:40 Blood Pressure 141/74 07/21/25 12:18 O2 Sat by Pulse Oximetry 100 07/21/25 10:40 Intake & Output: Intake & Output 07/19/25 07/20/25 07/21/25 07/22/25 11:59 11:59 11:59 11:59 Intake Total 1815 735 Output Total 600 690 Balance 1215 45 Weight 82.8 kg - Lab Result Diagrams: 07/21/25 08:50 07/21/25 08:50 Lab Results-Last 24 Hrs: Lab Results-Last 24 Hours 07/20/25 07/20/25 07/20/25 Range/Units 13:05 16:07 16:55 WBC (4.23-9.07) x10^3/uL RBC (4.63-6.08) x10^6/uL Hgb (13.7-17.5) g/dL Hct (40.1-51.0) % MCV (79.0-92.2) fL MCH (25.7-32.2) pg MCHC (32.3-36.5) g/dL RDW (11.6-14.4) % Plt Count (163-337) x10^3/uL MPV (9.4-12.4) fL Gran % (34.0-67.9) % Immature Gran % (Auto) (0.001-0.429) % Nucleat RBC Rel Count (0.00-0.2) % Eos # (Auto) (0.04-0.54) x10^3/uL Immature Gran # (Auto) (0.001-0.031) x10^3u/L Absolute Lymphs (auto) (1.32-3.57) x10^3/uL Absolute Monos (auto) (0.30-0.82) x10^3/uL Absolute Nucleated RBC (0.00-0.012) x10^3u/L Lymphocytes % (21.8-53.1) % Monocytes % (5.3-12.2) % Eosinophils % (0.8-7.0) % Basophils % (0.2-1.2) % Absolute Granulocytes (1.78-5.38) x10^3/uL Segmented Neutrophils (34.0-67.9) % Band Neutrophils (0.0-2.0) % Lymphocytes (Manual) (21.8-53.1) % Monocytes (Manual) (5.3-12.2) % Basophils # (0.01-0.08) x10^3/uL Nucleated RBCs % Hypochromia Platelet Estimate (NORMAL) RBC Morphology Macrocytosis PT (9.4-12.5) SECONDS INR (0.8-3.0) APTT (25.1-36.5) SECONDS Puncture Site pCO2 (35-45) mmHg pO2 (75-100) mmHg Base Excess (-2.0-2.0) O2 Saturation (94-100) g/dF ABG pH (7.35-7.45) ABG HCO3 (22-28) ABG O2 Sat (Measured) (95-100) % Filiberto Test A-a Gradient a/A Ratio Hemoglobin Carboxyhemoglobin (0.0-6.9) % THgb Methemoglobin (1.4-1.5) % Temperature C POC O2 Flow Rate % PEEP cmH2O Sodium (135-145) mmol/L Potassium 3.1 L 3.7 (3.5-5.1) mmol/L Chloride (98-107) mmol/L Carbon Dioxide (22-30) mmol/L Anion Gap (5-15) MEQ/L BUN (9-20) mg/dL Creatinine (0.66-1.25) mg/dL Estimated GFR ML/MIN Glucose (74-106) mg/dL POC Glucometer 114 H (74 to 106) mg/dL Calcium (8.4-10.2) mg/dL Magnesium (1.6-2.3) mg/dL Total Bilirubin (0.2-1.3) mg/dL AST (17-59) U/L ALT (0-50) U/L Alkaline Phosphatase (38-126) U/L Troponin I (0.000-0.033) ng/mL Serum Total Protein (6.3-8.2) g/dL Albumin (3.5-5.0) g/dL Urine Color (Yellow) Urine Appearance (Clear) Urine pH (4.6-8.0) Ur Specific [place] (1.005-1.030) Urine Protein (Negative) Urine Glucose (UA) (Negative) mg/dL Urine Ketones (Negative) Urine Blood (Negative) Urine Nitrite (Negative) Urine Bilirubin (Negative) Urine Urobilinogen (0.2) mg/dL Ur Leukocyte Esterase (Negative) U Hyaline Cast (Auto) (0-2) /LPF Urine Microscopic RBC (0-5) /HPF Urine Microscopic WBC (0-5) /HPF Ur Epithelial Cells (None Seen) /HPF Urine Bacteria (None Seen) /HPF Urine Culture Reflexed (NO) ABO Group Rh Factor Antibody Screen (NEGATIVE) Crossmatch (COMPATIBLE) 07/20/25 07/20/25 07/21/25 Range/Units 21:39 23:42 05:44 WBC 12.7 H (4.23-9.07) x10^3/uL RBC 2.17 L (4.63-6.08) x10^6/uL Hgb 6.7 L* (13.7-17.5) g/dL Hct 22.8 L (40.1-51.0) % MCV 105.1 H D (79.0-92.2) fL MCH 30.9 (25.7-32.2) pg MCHC 29.4 L (32.3-36.5) g/dL RDW 13.9 (11.6-14.4) % Plt Count 244 (163-337) x10^3/uL MPV 9.2 L (9.4-12.4) fL Gran % 84.3 H (34.0-67.9) % Immature Gran % (Auto) 3.1 H (0.001-0.429) % Nucleat RBC Rel Count 2.4 H (0.00-0.2) % Eos # (Auto) 0.02 L (0.04-0.54) x10^3/uL Immature Gran # (Auto) 0.39 H (0.001-0.031) x10^3u/L Absolute Lymphs (auto) 0.68 L (1.32-3.57) x10^3/uL Absolute Monos (auto) 0.88 H (0.30-0.82) x10^3/uL Absolute Nucleated RBC 0.30 H (0.00-0.012) x10^3u/L Lymphocytes % 5.3 L (21.8-53.1) % Monocytes % 6.9 (5.3-12.2) % Eosinophils % 0.2 L (0.8-7.0) % Basophils % 0.2 (0.2-1.2) % Absolute Granulocytes 10.72 H (1.78-5.38) x10^3/uL Segmented Neutrophils (34.0-67.9) % Band Neutrophils (0.0-2.0) % Lymphocytes (Manual) (21.8-53.1) % Monocytes (Manual) (5.3-12.2) % Basophils # 0.03 (0.01-0.08) x10^3/uL Nucleated RBCs % Hypochromia Platelet Estimate (NORMAL) RBC Morphology Macrocytosis PT (9.4-12.5) SECONDS INR (0.8-3.0) APTT (25.1-36.5) SECONDS Puncture Site pCO2 (35-45) mmHg pO2 (75-100) mmHg Base Excess (-2.0-2.0) O2 Saturation (94-100) g/dF ABG pH (7.35-7.45) ABG HCO3 (22-28) ABG O2 Sat (Measured) (95-100) % Filiberto Test A-a Gradient a/A Ratio Hemoglobin Carboxyhemoglobin (0.0-6.9) % THgb Methemoglobin (1.4-1.5) % Temperature C POC O2 Flow Rate % PEEP cmH2O Sodium (135-145) mmol/L Potassium (3.5-5.1) mmol/L Chloride (98-107) mmol/L Carbon Dioxide (22-30) mmol/L Anion Gap (5-15) MEQ/L BUN (9-20) mg/dL Creatinine (0.66-1.25) mg/dL Estimated GFR ML/MIN Glucose (74-106) mg/dL POC Glucometer 273 H (74 to 106) mg/dL Calcium (8.4-10.2) mg/dL Magnesium (1.6-2.3) mg/dL Total Bilirubin (0.2-1.3) mg/dL AST (17-59) U/L ALT (0-50) U/L Alkaline Phosphatase (38-126) U/L Troponin I 0.029 (0.000-0.033) ng/mL Serum Total Protein (6.3-8.2) g/dL Albumin (3.5-5.0) g/dL Urine Color (Yellow) Urine Appearance (Clear) Urine pH (4.6-8.0) Ur Specific [place] (1.005-1.030) Urine Protein (Negative) Urine Glucose (UA) (Negative) mg/dL Urine Ketones (Negative) Urine Blood (Negative) Urine Nitrite (Negative) Urine Bilirubin (Negative) Urine Urobilinogen (0.2) mg/dL Ur Leukocyte Esterase (Negative) U Hyaline Cast (Auto) (0-2) /LPF Urine Microscopic RBC (0-5) /HPF Urine Microscopic WBC (0-5) /HPF Ur Epithelial Cells (None Seen) /HPF Urine Bacteria (None Seen) /HPF Urine Culture Reflexed (NO) ABO Group Rh Factor Antibody Screen (NEGATIVE) Crossmatch (COMPATIBLE) 07/21/25 07/21/25 07/21/25 Range/Units 05:44 05:44 06:51 WBC (4.23-9.07) x10^3/uL RBC (4.63-6.08) x10^6/uL Hgb (13.7-17.5) g/dL Hct (40.1-51.0) % MCV (79.0-92.2) fL MCH (25.7-32.2) pg MCHC (32.3-36.5) g/dL RDW (11.6-14.4) % Plt Count (163-337) x10^3/uL MPV (9.4-12.4) fL Gran % (34.0-67.9) % Immature Gran % (Auto) (0.001-0.429) % Nucleat RBC Rel Count (0.00-0.2) % Eos # (Auto) (0.04-0.54) x10^3/uL Immature Gran # (Auto) (0.001-0.031) x10^3u/L Absolute Lymphs (auto) (1.32-3.57) x10^3/uL Absolute Monos (auto) (0.30-0.82) x10^3/uL Absolute Nucleated RBC (0.00-0.012) x10^3u/L Lymphocytes % (21.8-53.1) % Monocytes % (5.3-12.2) % Eosinophils % (0.8-7.0) % Basophils % (0.2-1.2) % Absolute Granulocytes (1.78-5.38) x10^3/uL Segmented Neutrophils (34.0-67.9) % Band Neutrophils (0.0-2.0) % Lymphocytes (Manual) (21.8-53.1) % Monocytes (Manual) (5.3-12.2) % Basophils # (0.01-0.08) x10^3/uL Nucleated RBCs % Hypochromia Platelet Estimate (NORMAL) RBC Morphology Macrocytosis PT (9.4-12.5) SECONDS INR (0.8-3.0) APTT (25.1-36.5) SECONDS Puncture Site pCO2 (35-45) mmHg pO2 (75-100) mmHg Base Excess (-2.0-2.0) O2 Saturation (94-100) g/dF ABG pH (7.35-7.45) ABG HCO3 (22-28) ABG O2 Sat (Measured) (95-100) % Filiberto Test A-a Gradient a/A Ratio Hemoglobin Carboxyhemoglobin (0.0-6.9) % THgb Methemoglobin (1.4-1.5) % Temperature C POC O2 Flow Rate % PEEP cmH2O Sodium 141 D (135-145) mmol/L Potassium 6.0 H* D (3.5-5.1) mmol/L Chloride 102 D (98-107) mmol/L Carbon Dioxide 37 H (22-30) mmol/L Anion Gap 7.7 (5-15) MEQ/L BUN 52 H (9-20) mg/dL Creatinine 1.08 (0.66-1.25) mg/dL Estimated GFR 71.6 ML/MIN Glucose 183 H (74-106) mg/dL POC Glucometer (74 to 106) mg/dL Calcium 10.1 (8.4-10.2) mg/dL Magnesium 1.9 (1.6-2.3) mg/dL Total Bilirubin < 0.10 L (0.2-1.3) mg/dL AST 25 (17-59) U/L ALT 22 (0-50) U/L Alkaline Phosphatase 60 (38-126) U/L Troponin I 0.018 (0.000-0.033) ng/mL Serum Total Protein 5.0 L (6.3-8.2) g/dL Albumin 3.0 L (3.5-5.0) g/dL Urine Color (Yellow) Urine Appearance (Clear) Urine pH (4.6-8.0) Ur Specific [place] (1.005-1.030) Urine Protein (Negative) Urine Glucose (UA) (Negative) mg/dL Urine Ketones (Negative) Urine Blood (Negative) Urine Nitrite (Negative) Urine Bilirubin (Negative) Urine Urobilinogen (0.2) mg/dL Ur Leukocyte Esterase (Negative) U Hyaline Cast (Auto) (0-2) /LPF Urine Microscopic RBC (0-5) /HPF Urine Microscopic WBC (0-5) /HPF Ur Epithelial Cells (None Seen) /HPF Urine Bacteria (None Seen) /HPF Urine Culture Reflexed (NO) ABO Group A Rh Factor NEGATIVE Antibody Screen NEGATIVE (NEGATIVE) Crossmatch COMPATIBLE (COMPATIBLE) 07/21/25 07/21/25 07/21/25 Range/Units 06:51 06:51 06:58 WBC (4.23-9.07) x10^3/uL RBC (4.63-6.08) x10^6/uL Hgb (13.7-17.5) g/dL Hct (40.1-51.0) % MCV (79.0-92.2) fL MCH (25.7-32.2) pg MCHC (32.3-36.5) g/dL RDW (11.6-14.4) % Plt Count (163-337) x10^3/uL MPV (9.4-12.4) fL Gran % (34.0-67.9) % Immature Gran % (Auto) (0.001-0.429) % Nucleat RBC Rel Count (0.00-0.2) % Eos # (Auto) (0.04-0.54) x10^3/uL Immature Gran # (Auto) (0.001-0.031) x10^3u/L Absolute Lymphs (auto) (1.32-3.57) x10^3/uL Absolute Monos (auto) (0.30-0.82) x10^3/uL Absolute Nucleated RBC (0.00-0.012) x10^3u/L Lymphocytes % (21.8-53.1) % Monocytes % (5.3-12.2) % Eosinophils % (0.8-7.0) % Basophils % (0.2-1.2) % Absolute Granulocytes (1.78-5.38) x10^3/uL Segmented Neutrophils (34.0-67.9) % Band Neutrophils (0.0-2.0) % Lymphocytes (Manual) (21.8-53.1) % Monocytes (Manual) (5.3-12.2) % Basophils # (0.01-0.08) x10^3/uL Nucleated RBCs % Hypochromia Platelet Estimate (NORMAL) RBC Morphology Macrocytosis PT (9.4-12.5) SECONDS INR (0.8-3.0) APTT (25.1-36.5) SECONDS Puncture Site pCO2 (35-45) mmHg pO2 (75-100) mmHg Base Excess (-2.0-2.0) O2 Saturation (94-100) g/dF ABG pH (7.35-7.45) ABG HCO3 (22-28) ABG O2 Sat (Measured) (95-100) % Filiberto Test A-a Gradient a/A Ratio Hemoglobin Carboxyhemoglobin (0.0-6.9) % THgb Methemoglobin (1.4-1.5) % Temperature C POC O2 Flow Rate % PEEP cmH2O Sodium (135-145) mmol/L Potassium (3.5-5.1) mmol/L Chloride (98-107) mmol/L Carbon Dioxide (22-30) mmol/L Anion Gap (5-15) MEQ/L BUN (9-20) mg/dL Creatinine (0.66-1.25) mg/dL Estimated GFR ML/MIN Glucose (74-106) mg/dL POC Glucometer 327 H (74 to 106) mg/dL Calcium (8.4-10.2) mg/dL Magnesium (1.6-2.3) mg/dL Total Bilirubin (0.2-1.3) mg/dL AST (17-59) U/L ALT (0-50) U/L Alkaline Phosphatase (38-126) U/L Troponin I (0.000-0.033) ng/mL Serum Total Protein (6.3-8.2) g/dL Albumin (3.5-5.0) g/dL Urine Color (Yellow) Urine Appearance (Clear) Urine pH (4.6-8.0) Ur Specific [place] (1.005-1.030) Urine Protein (Negative) Urine Glucose (UA) (Negative) mg/dL Urine Ketones (Negative) Urine Blood (Negative) Urine Nitrite (Negative) Urine Bilirubin (Negative) Urine Urobilinogen (0.2) mg/dL Ur Leukocyte Esterase (Negative) U Hyaline Cast (Auto) (0-2) /LPF Urine Microscopic RBC (0-5) /HPF Urine Microscopic WBC (0-5) /HPF Ur Epithelial Cells (None Seen) /HPF Urine Bacteria (None Seen) /HPF Urine Culture Reflexed (NO) ABO Group Rh Factor Antibody Screen (NEGATIVE) Crossmatch COMPATIBLE COMPATIBLE (COMPATIBLE) 07/21/25 07/21/25 07/21/25 Range/Units 07:20 07:20 07:20 WBC 14.8 H (4.23-9.07) x10^3/uL RBC 2.07 L (4.63-6.08) x10^6/uL Hgb 6.5 L* (13.7-17.5) g/dL Hct 23.0 L (40.1-51.0) % MCV 111.1 H (79.0-92.2) fL MCH 31.4 (25.7-32.2) pg MCHC 28.3 L (32.3-36.5) g/dL RDW 13.8 (11.6-14.4) % Plt Count 218 (163-337) x10^3/uL MPV 9.4 (9.4-12.4) fL Gran % (34.0-67.9) % Immature Gran % (Auto) (0.001-0.429) % Nucleat RBC Rel Count (0.00-0.2) % Eos # (Auto) (0.04-0.54) x10^3/uL Immature Gran # (Auto) (0.001-0.031) x10^3u/L Absolute Lymphs (auto) (1.32-3.57) x10^3/uL Absolute Monos (auto) (0.30-0.82) x10^3/uL Absolute Nucleated RBC (0.00-0.012) x10^3u/L Lymphocytes % (21.8-53.1) % Monocytes % (5.3-12.2) % Eosinophils % (0.8-7.0) % Basophils % (0.2-1.2) % Absolute Granulocytes (1.78-5.38) x10^3/uL Segmented Neutrophils 65 (34.0-67.9) % Band Neutrophils 2 (0.0-2.0) % Lymphocytes (Manual) 32 (21.8-53.1) % Monocytes (Manual) 1 L (5.3-12.2) % Basophils # (0.01-0.08) x10^3/uL Nucleated RBCs 2 % Hypochromia 1+ Platelet Estimate NORMAL (NORMAL) RBC Morphology ABNORMAL Macrocytosis 2+ PT 11.1 (9.4-12.5) SECONDS INR 0.99 (0.8-3.0) APTT < 20.0 L (25.1-36.5) SECONDS Puncture Site pCO2 (35-45) mmHg pO2 (75-100) mmHg Base Excess (-2.0-2.0) O2 Saturation (94-100) g/dF ABG pH (7.35-7.45) ABG HCO3 (22-28) ABG O2 Sat (Measured) (95-100) % Filiberto Test A-a Gradient a/A Ratio Hemoglobin Carboxyhemoglobin (0.0-6.9) % THgb Methemoglobin (1.4-1.5) % Temperature C POC O2 Flow Rate % PEEP cmH2O Sodium 140 (135-145) mmol/L Potassium 5.9 H (3.5-5.1) mmol/L Chloride 102 (98-107) mmol/L Carbon Dioxide 28 (22-30) mmol/L Anion Gap 16.6 H (5-15) MEQ/L BUN 49 H (9-20) mg/dL Creatinine 1.26 H (0.66-1.25) mg/dL Estimated GFR 59.5 ML/MIN Glucose 363 H (74-106) mg/dL POC Glucometer (74 to 106) mg/dL Calcium 9.9 (8.4-10.2) mg/dL Magnesium 2.3 (1.6-2.3) mg/dL Total Bilirubin < 0.10 L (0.2-1.3) mg/dL AST 188 H (17-59) U/L ALT 157 H (0-50) U/L Alkaline Phosphatase 61 (38-126) U/L Troponin I (0.000-0.033) ng/mL Serum Total Protein 5.1 L (6.3-8.2) g/dL Albumin 3.0 L (3.5-5.0) g/dL Urine Color (Yellow) Urine Appearance (Clear) Urine pH (4.6-8.0) Ur Specific [place] (1.005-1.030) Urine Protein (Negative) Urine Glucose (UA) (Negative) mg/dL Urine Ketones (Negative) Urine Blood (Negative) Urine Nitrite (Negative) Urine Bilirubin (Negative) Urine Urobilinogen (0.2) mg/dL Ur Leukocyte Esterase (Negative) U Hyaline Cast (Auto) (0-2) /LPF Urine Microscopic RBC (0-5) /HPF Urine Microscopic WBC (0-5) /HPF Ur Epithelial Cells (None Seen) /HPF Urine Bacteria (None Seen) /HPF Urine Culture Reflexed (NO) ABO Group Rh Factor Antibody Screen (NEGATIVE) Crossmatch (COMPATIBLE) 07/21/25 07/21/25 07/21/25 Range/Units 07:30 08:50 08:50 WBC 15.9 H (4.23-9.07) x10^3/uL RBC 1.92 L (4.63-6.08) x10^6/uL Hgb 6.0 L* (13.7-17.5) g/dL Hct 20.3 L (40.1-51.0) % MCV 105.7 H (79.0-92.2) fL MCH 31.3 (25.7-32.2) pg MCHC 29.6 L (32.3-36.5) g/dL RDW 14.3 (11.6-14.4) % Plt Count 218 (163-337) x10^3/uL MPV 9.4 (9.4-12.4) fL Gran % (34.0-67.9) % Immature Gran % (Auto) (0.001-0.429) % Nucleat RBC Rel Count (0.00-0.2) % Eos # (Auto) (0.04-0.54) x10^3/uL Immature Gran # (Auto) (0.001-0.031) x10^3u/L Absolute Lymphs (auto) (1.32-3.57) x10^3/uL Absolute Monos (auto) (0.30-0.82) x10^3/uL Absolute Nucleated RBC (0.00-0.012) x10^3u/L Lymphocytes % (21.8-53.1) % Monocytes % (5.3-12.2) % Eosinophils % (0.8-7.0) % Basophils % (0.2-1.2) % Absolute Granulocytes (1.78-5.38) x10^3/uL Segmented Neutrophils (34.0-67.9) % Band Neutrophils (0.0-2.0) % Lymphocytes (Manual) (21.8-53.1) % Monocytes (Manual) (5.3-12.2) % Basophils # (0.01-0.08) x10^3/uL Nucleated RBCs % Hypochromia Platelet Estimate (NORMAL) RBC Morphology Macrocytosis PT (9.4-12.5) SECONDS INR (0.8-3.0) APTT (25.1-36.5) SECONDS Puncture Site LEFT FEMORAL AL pCO2 80 H* 46 H (35-45) mmHg pO2 218 H* 231 H* (75-100) mmHg Base Excess -3.4 L -0.2 (-2.0-2.0) O2 Saturation 97.8 95.1 (94-100) g/dF ABG pH 7.12 L* 7.35 (7.35-7.45) ABG HCO3 26.0 25.4 (22-28) ABG O2 Sat (Measured) 100.0 100.0 (95-100) % Filiberto Test NOT APPLICABLE NOT APPLICABLE A-a Gradient 395 -139 a/A Ratio 0.36 2.51 Hemoglobin 6.9 L* 6.4 L* Carboxyhemoglobin 1.5 4.1 (0.0-6.9) % THgb Methemoglobin 0.7 L 0.7 L (1.4-1.5) % Temperature 37.0 37.0 C POC O2 Flow Rate 100 21 % PEEP cmH2O Sodium (135-145) mmol/L Potassium 6.1 H* 5.6 H (3.5-5.1) mmol/L Chloride (98-107) mmol/L Carbon Dioxide (22-30) mmol/L Anion Gap (5-15) MEQ/L BUN (9-20) mg/dL Creatinine (0.66-1.25) mg/dL Estimated GFR ML/MIN Glucose (74-106) mg/dL POC Glucometer (74 to 106) mg/dL Calcium (8.4-10.2) mg/dL Magnesium (1.6-2.3) mg/dL Total Bilirubin (0.2-1.3) mg/dL AST (17-59) U/L ALT (0-50) U/L Alkaline Phosphatase (38-126) U/L Troponin I (0.000-0.033) ng/mL Serum Total Protein (6.3-8.2) g/dL Albumin (3.5-5.0) g/dL Urine Color (Yellow) Urine Appearance (Clear) Urine pH (4.6-8.0) Ur Specific [place] (1.005-1.030) Urine Protein (Negative) Urine Glucose (UA) (Negative) mg/dL Urine Ketones (Negative) Urine Blood (Negative) Urine Nitrite (Negative) Urine Bilirubin (Negative) Urine Urobilinogen (0.2) mg/dL Ur Leukocyte Esterase (Negative) U Hyaline Cast (Auto) (0-2) /LPF Urine Microscopic RBC (0-5) /HPF Urine Microscopic WBC (0-5) /HPF Ur Epithelial Cells (None Seen) /HPF Urine Bacteria (None Seen) /HPF Urine Culture Reflexed (NO) ABO Group Rh Factor Antibody Screen (NEGATIVE) Crossmatch (COMPATIBLE) 07/21/25 07/21/25 07/21/25 Range/Units 08:50 08:50 10:35 WBC (4.23-9.07) x10^3/uL RBC (4.63-6.08) x10^6/uL Hgb (13.7-17.5) g/dL Hct (40.1-51.0) % MCV (79.0-92.2) fL MCH (25.7-32.2) pg MCHC (32.3-36.5) g/dL RDW (11.6-14.4) % Plt Count (163-337) x10^3/uL MPV (9.4-12.4) fL Gran % (34.0-67.9) % Immature Gran % (Auto) (0.001-0.429) % Nucleat RBC Rel Count (0.00-0.2) % Eos # (Auto) (0.04-0.54) x10^3/uL Immature Gran # (Auto) (0.001-0.031) x10^3u/L Absolute Lymphs (auto) (1.32-3.57) x10^3/uL Absolute Monos (auto) (0.30-0.82) x10^3/uL Absolute Nucleated RBC (0.00-0.012) x10^3u/L Lymphocytes % (21.8-53.1) % Monocytes % (5.3-12.2) % Eosinophils % (0.8-7.0) % Basophils % (0.2-1.2) % Absolute Granulocytes (1.78-5.38) x10^3/uL Segmented Neutrophils (34.0-67.9) % Band Neutrophils (0.0-2.0) % Lymphocytes (Manual) (21.8-53.1) % Monocytes (Manual) (5.3-12.2) % Basophils # (0.01-0.08) x10^3/uL Nucleated RBCs % Hypochromia Platelet Estimate (NORMAL) RBC Morphology Macrocytosis PT 11.4 (9.4-12.5) SECONDS INR 1.02 (0.8-3.0) APTT 20.2 L (25.1-36.5) SECONDS Puncture Site line pCO2 53 H (35-45) mmHg pO2 397 H* (75-100) mmHg Base Excess 3.2 H (-2.0-2.0) O2 Saturation 98.6 (94-100) g/dF ABG pH 7.35 (7.35-7.45) ABG HCO3 29.3 H* (22-28) ABG O2 Sat (Measured) 99.7 (95-100) % Filiberto Test na A-a Gradient 250 a/A Ratio 0.61 Hemoglobin 7.7 L* Carboxyhemoglobin 0.7 (0.0-6.9) % THgb Methemoglobin 0.5 L (1.4-1.5) % Temperature 37.0 C POC O2 Flow Rate 100 % PEEP 5.0 cmH2O Sodium 142 (135-145) mmol/L Potassium 5.4 H 5.7 H (3.5-5.1) mmol/L Chloride 110 H (98-107) mmol/L Carbon Dioxide 28 (22-30) mmol/L Anion Gap 8.9 (5-15) MEQ/L BUN 49 H (9-20) mg/dL Creatinine 1.19 (0.66-1.25) mg/dL Estimated GFR 63.7 ML/MIN Glucose 269 H (74-106) mg/dL POC Glucometer (74 to 106) mg/dL Calcium 8.6 (8.4-10.2) mg/dL Magnesium 1.7 (1.6-2.3) mg/dL Total Bilirubin < 0.10 L (0.2-1.3) mg/dL AST 182 H (17-59) U/L ALT 171 H (0-50) U/L Alkaline Phosphatase 58 (38-126) U/L Troponin I (0.000-0.033) ng/mL Serum Total Protein 4.3 L (6.3-8.2) g/dL Albumin 2.3 L (3.5-5.0) g/dL Urine Color (Yellow) Urine Appearance (Clear) Urine pH (4.6-8.0) Ur Specific [place] (1.005-1.030) Urine Protein (Negative) Urine Glucose (UA) (Negative) mg/dL Urine Ketones (Negative) Urine Blood (Negative) Urine Nitrite (Negative) Urine Bilirubin (Negative) Urine Urobilinogen (0.2) mg/dL Ur Leukocyte Esterase (Negative) U Hyaline Cast (Auto) (0-2) /LPF Urine Microscopic RBC (0-5) /HPF Urine Microscopic WBC (0-5) /HPF Ur Epithelial Cells (None Seen) /HPF Urine Bacteria (None Seen) /HPF Urine Culture Reflexed (NO) ABO Group Rh Factor Antibody Screen (NEGATIVE) Crossmatch (COMPATIBLE) 07/21/25 Range/Units 12:15 WBC (4.23-9.07) x10^3/uL RBC (4.63-6.08) x10^6/uL Hgb (13.7-17.5) g/dL Hct (40.1-51.0) % MCV (79.0-92.2) fL MCH (25.7-32.2) pg MCHC (32.3-36.5) g/dL RDW (11.6-14.4) % Plt Count (163-337) x10^3/uL MPV (9.4-12.4) fL Gran % (34.0-67.9) % Immature Gran % (Auto) (0.001-0.429) % Nucleat RBC Rel Count (0.00-0.2) % Eos # (Auto) (0.04-0.54) x10^3/uL Immature Gran # (Auto) (0.001-0.031) x10^3u/L Absolute Lymphs (auto) (1.32-3.57) x10^3/uL Absolute Monos (auto) (0.30-0.82) x10^3/uL Absolute Nucleated RBC (0.00-0.012) x10^3u/L Lymphocytes % (21.8-53.1) % Monocytes % (5.3-12.2) % Eosinophils % (0.8-7.0) % Basophils % (0.2-1.2) % Absolute Granulocytes (1.78-5.38) x10^3/uL Segmented Neutrophils (34.0-67.9) % Band Neutrophils (0.0-2.0) % Lymphocytes (Manual) (21.8-53.1) % Monocytes (Manual) (5.3-12.2) % Basophils # (0.01-0.08) x10^3/uL Nucleated RBCs % Hypochromia Platelet Estimate (NORMAL) RBC Morphology Macrocytosis PT (9.4-12.5) SECONDS INR (0.8-3.0) APTT (25.1-36.5) SECONDS Puncture Site pCO2 (35-45) mmHg pO2 (75-100) mmHg Base Excess (-2.0-2.0) O2 Saturation (94-100) g/dF ABG pH (7.35-7.45) ABG HCO3 (22-28) ABG O2 Sat (Measured) (95-100) % Filiberto Test A-a Gradient a/A Ratio Hemoglobin Carboxyhemoglobin (0.0-6.9) % THgb Methemoglobin (1.4-1.5) % Temperature C POC O2 Flow Rate % PEEP cmH2O Sodium (135-145) mmol/L Potassium (3.5-5.1) mmol/L Chloride (98-107) mmol/L Carbon Dioxide (22-30) mmol/L Anion Gap (5-15) MEQ/L BUN (9-20) mg/dL Creatinine (0.66-1.25) mg/dL Estimated GFR ML/MIN Glucose (74-106) mg/dL POC Glucometer (74 to 106) mg/dL Calcium (8.4-10.2) mg/dL Magnesium (1.6-2.3) mg/dL Total Bilirubin (0.2-1.3) mg/dL AST (17-59) U/L ALT (0-50) U/L Alkaline Phosphatase (38-126) U/L Troponin I (0.000-0.033) ng/mL Serum Total Protein (6.3-8.2) g/dL Albumin (3.5-5.0) g/dL Urine Color Yellow (Yellow) Urine Appearance Clear (Clear) Urine pH 5.5 (4.6-8.0) Ur Specific [place] 1.025 (1.005-1.030) Urine Protein 30 (Negative) Urine Glucose (UA) 100 A (Negative) mg/dL Urine Ketones Negative (Negative) Urine Blood Small A (Negative) Urine Nitrite Negative (Negative) Urine Bilirubin Negative (Negative) Urine Urobilinogen 0.2 (0.2) mg/dL Ur Leukocyte Esterase Negative (Negative) U Hyaline Cast (Auto) 3-5 A (0-2) /LPF Urine Microscopic RBC 3-5 (0-5) /HPF Urine Microscopic WBC 0-2 (0-5) /HPF Ur Epithelial Cells None Seen (None Seen) /HPF Urine Bacteria None Seen (None Seen) /HPF Urine Culture Reflexed ORDERED SEPARATELY (NO) ABO Group Rh Factor Antibody Screen (NEGATIVE) Crossmatch (COMPATIBLE) Micro Results-Entire Visit: Microbiology 07/19/25 23:50 Blood Culture - Preliminary Blood 07/19/25 23:43 Blood Culture - Preliminary Blood Accuchecks Date 07/21/25 Date 07/20/25 Date 07/20/25 Time 22:00 Time 16:43 - Radiology Exams Ordered Rad Exams-Entire Visit: Radiology Procedures Category Date Time Status CHEST 1 VIEW (PORTABLE) Stat Exams 07/19/25 22:39 Completed CHEST 1 VIEW (PORTABLE) Stat Exams 07/21/25 07:44 Completed CHEST 1 VIEW (PORTABLE) Stat Exams 07/21/25 11:45 Completed CHEST WITH CONTRAST [CT] Stat Exams 07/21/25 08:46 Completed CTA ABD/PEL W AND/OR W/O CONTR [CT] Urgent Exams 07/21/25 06:26 Completed LUMBAR SPINE W/O [CT] Stat Exams 07/20/25 08:52 Completed - Procedures and Test Procedures and Tests throughout Hospitalization: Therapy Orders & Screens 07/20/25 01:16 Respiratory Therapy Assessment DAILY Comment: Diagnosis: sepsis 07/20/25 01:32 Oxygen Nasal Cannula 6 lpm Comment: Diagnosis: sepsis 07/20/25 02:05 RT Screen per Nursing Assess ONCE Comment: Protocol Order Physician Instructions: Greater than 3 points order RT Admission Screen Reason For Exam: Triggered on Admission Diagnosis: sepsis, BRADEN Diagnosis: sepsis, BRADEN Pneumonia: No Home O2: Yes Asthma: Yes CHF: No Home CPAP/BIPAP: No Home Nebs/MDI: Yes Total Points: 14 07/20/25 23:25 EKG ROUTINE Comment: Diagnosis: SEPSIS 07/21/25 06:46 EKG STAT Comment: Diagnosis: hyperkalemia EKG Reason: Other 07/21/25 07:10 Intubate Patient STAT Comment: Diagnosis: hyperkalemia,CARDIAC ARREST Ventilator Management Q4H Comment: Diagnosis: hyperkalemia,CARDIAC ARREST 07/21/25 08:25 EKG ROUTINE Comment: Diagnosis: hyperkalemia,CARDIAC ARREST EKG Reason: Other Discharge Exam General Appearance: severe distress Neurologic Exam: other (sedated on vent) Respiratory Exam: diminished breath sounds, crackles/rales Cardiovascular Exam: regular rate/rhythm, normal heart sounds Gastrointestinal/Abdomen Exam: soft, normal bowel sounds Male Genitalia Exam: normal genitalia, other (FC) Rectal Exam: deferred Back Exam: normal inspection Extremity Exam: normal inspection Skin Exam: normal color Final Diagnosis/Problem List - Final Discharge Diagnosis/Problem (1) Cardiac arrest Current Visit: Yes Status: Acute Assessment & Plan: PEA arrest on 07/21 requiring ACLS, intubation, and critical care management. Now intubated, sedated, and paralyzed on Versed, fentanyl, and Nimbex. Code(s): I46.9 - CARDIAC ARREST, CAUSE UNSPECIFIED (2) Acute hypoxic respiratory failure Current Visit: Yes Status: Acute Assessment & Plan: Intubated post-code for airway protection and ventilatory support. Ventilator management ongoing. Code(s): J96.01 - ACUTE RESPIRATORY FAILURE WITH HYPOXIA (3) BRADEN (acute kidney injury) Current Visit: Yes Status: Acute Assessment & Plan: Likely secondary to hypovolemia/hypoperfusion. IV fluid resuscitation, strict I&O, avoid nephrotoxins, repeat renal function monitoring. Code(s): N17.9 - ACUTE KIDNEY FAILURE, UNSPECIFIED (4) Hyperkalemia Current Visit: Yes Status: Acute Assessment & Plan: Potassium 6.0 after Treated with insulin/D50, calcium gluconate, sodium bicarbonate. Continuous telemetry and recheck ordered. Code(s): E87.5 - HYPERKALEMIA (5) Symptomatic anemia Current Visit: Yes Status: Acute Assessment & Plan: Hemoglobin 6.7; transfused 1 unit PRBC. CTA chest/abdomen/pelvis negative for active bleed. Continue transfusion support as needed. Code(s): D64.9 - ANEMIA, UNSPECIFIED (6) Lactic acidosis Current Visit: Yes Status: Acute Assessment & Plan: Lactic acid 7.3, improved to WNL with fluids. Ongoing monitoring of perfusion and metabolic status. Code(s): E87.20 - ACIDOSIS, UNSPECIFIED (7) Syncope Current Visit: Yes Status: Acute Assessment & Plan: Brief episode in radiology 07/20. Multifactorial: anemia, hypoperfusion, arrhythmia. Code(s): R55 - SYNCOPE AND COLLAPSE (8) COPD (chronic obstructive pulmonary disease) Current Visit: Yes Status: Acute Assessment & Plan: On 6 L NC at baseline. Continue bronchodilators and prednisone; now ventilator-dependent. (9) HTN (hypertension) Current Visit: Yes Status: Acute Assessment & Plan: Home antihypertensives held due to hypotension. Code(s): I10 - ESSENTIAL (PRIMARY) HYPERTENSION (10) HLD (hyperlipidemia) Current Visit: Yes Status: Acute Assessment & Plan: On statin therapy; continue when stable. Code(s): E78.5 - HYPERLIPIDEMIA, UNSPECIFIED (11) DMII (diabetes mellitus, type 2) Current Visit: Yes Status: Acute Assessment & Plan: Managed with insulin; currently on ICU insulin protocol. (12) Back pain at L4-L5 level Current Visit: Yes Status: Acute Code(s): M54.50 - LOW BACK PAIN, UNSPECIFIED (13) Elevated troponin Current Visit: Yes Status: Acute Assessment & Plan: Initially 07/20, resolved spontaneously; recurrent severe 07/30 pain 07/[address] lumbar spine negative for acute pathology. Code(s): R79.89 - OTHER SPECIFIED ABNORMAL FINDINGS OF BLOOD CHEMISTRY (14) Leukocytosis Current Visit: Yes Status: Acute Assessment & Plan: WBC 17K on chronic steroids, no fever. CTA chest with atelectasis and hazy opacities ? possible pneumonia/aspiration. Empiric cefepime initiated. Code(s): D72.829 - ELEVATED WHITE BLOOD CELL COUNT, UNSPECIFIED - Discharge Discharge Date: 07/21/25 Dis[facility] Condition: Stable Prescriptions: No Action Sotalol HCl 80 mg [Betapace 80 MG] 80 mg PO BID Potassium Chloride 10 meq PO DAILY Fluticasone Propionate [Flonase NASAL] 50 mcg INTRANASAL DAILY Atorvastatin Calcium 80 mg PO HS Amitriptyline HCl 25 mg [Amitriptyline 25 mg Tablet] 25 mg PO HS Furosemide 40 mg [Lasix 40 MG] 40 mg PO DAILY Ferrous Sulfate 325 mg [Feosol 325 mg] 325 mg PO DAILY 30 Days #30 tablet levalbuterol HCl [Xopenex 1.25 MG/0.5 ML UD NEBULE] 1.25 mg IH Q4H PRN PRN PRN Reason: Shortness Of Breath Ipratropium/Albuterol Sulfate [Iprat-Albut 0.5-3(2.5) mg/3 ml] 3 ml IH Q4H Prednisone 20 mg [Deltasone 20 mg] 20 mg PO DAILY Insulin Degludec [Tresiba Flextouch U-200] 30 unit SQ HS Metformin HCl 500 mg [Glucophage 500 MG] 500 mg PO DAILY Theophylline Anhydrous [Theophylline ER] 300 mg PO DAILY Instructions: Acute kidney injury, Low back pain - Discharge instructions Follow up with: CHIOMA HANNAH MD [Primary Care Provider, INTERNAL MEDICINE] - 08/03/25 11:00 am
[2025-07-21] MEDS ORDERED: Lidoderm Patch 5% TOP SCH (15:05)
[2025-07-21 15:38] VITALS: PULSE 66
[2025-07-21] MEDS: REMOVE PATCH REMINDER TOP PRN (15:41)
[2025-07-21 16:11] VITALS: BP 114/70
== END 2025-07-21 14:55 | disposition short-term general hospital (02) | DRG 252 ==
LOC: ED 22:07 → MED SURG 07-20 01:17 → OBSVTOIN 07-21 07:09 → ICU 07-21 07:42
PROVIDERS: ADMIT Hospitalist; ATTEND Hospitalist
PROC: 04H Lower Arteries, Insertion (ICD-10-PCS; principal; 2025-07-21)
PROC: 06H033Z Insertion of Infusion Device into Inferior Vena Cava, Percutaneous Approach (ICD-10-PCS; 2025-07-21)
DX: I46.9 Cardiac arrest, cause unspecified (principal); J96.01 Acute respiratory failure with hypoxia; N17.9 Acute kidney failure, unspecified; E87.20 Acidosis, unspecified; E87.5 Hyperkalemia; D64.9 Anemia, unspecified; R55 Syncope and collapse; J44.9 Chronic obstructive pulmonary disease, unspecified; Z99.81 Dependence on supplemental oxygen; I10 Essential (primary) hypertension; E78.5 Hyperlipidemia, unspecified; E11.9 Type 2 diabetes mellitus without complications; M54.50 Low back pain, unspecified; R79.89 Other specified abnormal findings of blood chemistry; D72.829 Elevated white blood cell count, unspecified; Z79.899 Other long term (current) drug therapy; Z79.4 Long term (current) use of insulin